=== PATIENT | female | born 1935 | race Caucasian/White ===

== ENCOUNTER 2017-03-21 13:21 | Emergency (ER) | payer OTHER ==
[~2017-03-21] VITALS: Ht 160 cm; Wt 66.0 kg
[~2017-03-21 13:21] MED LIST: AMOX500C3 PO; ASPI81TA28 PO; CLX/20 PO; MEMA1TAB4 PO; MULT-506 PO; NRN100 PO; NRV5 PO
[2017-03-21 13:33] VITALS: TEMP 37; Ht 160 cm; Wt 66.0 kg
[2017-03-21] MEDS ORDERED: SODIUM CHLORIDE 0.9% 500ML 500 ML IV STA (13:39)
[2017-03-21 13:47] LABS: BASO % 0.5 %; BASO ABS # 0.04 K/uL (0-0.2); COMPLETE YES; EOS % 1.5 %; HEMATOCRIT 39.7 % (37-47); IG% 0.1 %; LYMPH % 40.3 %; LYMPH ABS # 3.29 K/uL (1.2-3.4); MEAN CELL VOLUME 95.4 fL (80-100); MEAN CORPUSCULAR HEMOGLOBIN 29.8 pg (25-34); MEAN CORPUSCULAR HGB CONC 31.2 g/dl (32-36); MEAN PLATELET VOLUME 9.3 fL (7.4-10.4); MONO % 4.4 %; NEUT % 53.2 %; PLATELET COUNT 274 K/uL (130-400); RED BLOOD COUNT 4.16 M/uL (4.2-5.4); WHITE BLOOD COUNT 8.17 K/uL (4.8-10.8)
[2017-03-21] MEDS ORDERED: LIDODERM (LIDOCAINE) PATCH 5% TD STA (13:49)
[2017-03-21 13:56] LABS: BLOOD UREA NITROGEN 23 mg/dl (7-18); BUN/CREATININE RATIO 27.6 (10-20); CARBON DIOXIDE 28 mmol/L (21-32); CHLORIDE 110 mmol/L (98-107); CREATININE 0.82 mg/dl (0.60-1.20); GLUCOSE 97 mg/dl (70-99); POTASSIUM 4.1 mmol/L (3.5-5.1); SODIUM 146 mmol/L (136-145)
[2017-03-21 13:57] LABS: INR 0.9 (0.9-1.1); PARTIAL THROMBOPLASTIN RATIO 0.9
--- NOTE | 2017-03-21 13:59 | EMERGENCY ROOM VISIT NOTE ---
History First contact with patient: 13:24 Chief Complaint: ILLNESS Stated Complaint: U History of Present Illness The patient is a 82 year old female who presents to the Emergency Room with complaints of altered mental state. She was a code purple in the cancer centre after staff found her appearing confused sitting on a chair by herself around 1: 10pm. Her is currently undergoing iron infusion treatment in the cancer center and her son was helping him and left her on the same chair. He was then contacted by staff who were concerned about the patient's mental state. As per the medical team she did not lose consciousness, glucose was normal, no respiratory distress but appeared confused. She is currently complaining about bilateral shoulder and neck pain worse on the right side. She is unable to expand on this in terms of character, radiation or severity. She is disorientated to time, place and person. As per her son this is not unusual for her due to a skiing accident many years ago and recently had a shoulder injection for rotator cuff injury on March 09. Her son reports when this pain is overwhelming her mental status declines and she becomes confused. He also reports she didn't eat anything today. He is unsure whether she took her morning medications. Review of Systems Unable to take full systems review due to patient cognition and son does not know answers. Generally was her normal self up until the amy cuellar was called. No preceding symptoms. 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 Social History Smoking Status: Never Smoker Alcohol Use: none Marital Status: Housing Status: lives with significant other Current/Historical Medications Scheduled Amlodipine Besylate (Amlodipine Besylate), 5 MG PO QAM Aspirin (Aspirin Ec), 81 MG PO QAM Citalopram (Citalopram Hydrobromide), 20 MG PO DAILY Gabapentin (Gabapentin), 100 MG PO BID Memantine HCl (Memantine HCl), 10 MG PO BID Multivitamin (Multivitamin), 1 TAB PO QAM Scheduled PRN Amoxicillin (Amoxil), 4 CAP PO UD PRN for prior to procedures Allergies Coded Allergies: No Known Allergies (Verified , 01/31/16) Physical Exam Vital Signs Date Time Temp Pulse Resp B/P (MAP) Pulse Ox O2 Delivery O2 Flow Rate FiO2 03/21/17 14:31 62 16 163/85 95 Room Air 03/21/17 13:33 37.0 78 16 173/78 95 03/21/17 13:26 69 Physical Exam VITAL SIGNS: were reviewed as above GENERAL: mild acute distress from pain, lying still in bed but closing her eyes frequently SKIN: Warm dry and pink, no rashes HEAD: Normocephalic and atraumatic EYES: extraocular muscles intact, pupils equal and reactive to light OROPHARYNX: non erythematous, clear and moist NECK: Supple, no adenopathy, trachea central LUNGS: Regular rate, no respiratory distress, clear to auscultation, no accessory muscle use HEART: Regular rate and rhythm, heart sounds 1+2, no murmurs ABDOMEN: Soft, non distended, generalized pain on palpation without rebound or guarding, bowel sounds normal BACK: no CVA tenderness EXTREMITIES: Warm and well perfused, peripheral capillary refill <2s, no calf tenderness/swelling, no pedal edema. NEUROLOGICALLY: Awake alert and oriented without focal deficit. Cranial nerves 2 -12 intact. Cerebellar testing is within normal limits. There is no nystagmus. There is no facial droop. Speech is clear. Vision is grossly normal. MUSCULOSKELETAL: Good muscle tone. No evidence of trauma Medical Decision & Procedures ER Provider Diagnostic Interpretation: HEAD CT NONCONTRAST CT DOSE: 690.05 mGycm HISTORY: headache, altered mental status. TECHNIQUE: Multiaxial CT images of the head were performed without the use of intravenous contrast. Automated exposure control was utilized for this study. Comparison: Head CT 02/19/2016. Findings: The paranasal sinuses and mastoid air cells are clear. The calvarium and skull base are intact. There is no mass, hematoma, midline shift, acute infarct. White matter hypodensity is nonspecific but suggestive of microvascular ischemic change. The ventricles and sulci demonstrate mild age-related involutional changes. Impression: No significant change compared to the prior study. No acute intracranial abnormality. Electronically signed by: Bhanu Beard M.D. 03/21/2017 2:07 PM Dictated Date/Time: 03/21/2017 2:01 PM ABDOMEN 2VIEW W/PA CHEST RTN CLINICAL HISTORY: abdominal pain, AMS COMPARISON STUDY: No previous studies for comparison. FINDINGS: The erect chest reveals no free intraperitoneal air. There is no focal pulmonary consolidation. Supine and decubitus views the abdomen reveal no abnormally dilated loops of large or small bowel. There are no transition zones to indicate a bowel obstruction. There are postsurgical changes of a total right hip arthroplasty. IMPRESSION: No evidence of bowel obstruction. No evidence of free air. Electronically signed by: Rufus Lemus M.D. 03/21/2017 2:20 PM Dictated Date/Time: 03/21/2017 2:19 PM Laboratory Results 03/21/17 13:28 Red Blood Count 4.16, Mean Corpuscular Volume 95.4, Mean Corpuscular Hemoglobin 29.8, Mean Corpuscular Hemoglobin Concent 31.2, Mean Platelet Volume 9.3, Neutrophils (%) (Auto) 53.2, Lymphocytes (%) (Auto) 40.3, Monocytes (%) (Auto) 4.4, Eosinophils (%) (Auto) 1.5, Basophils (%) (Auto) 0.5, Neutrophils # (Auto) 4.35, Lymphocytes # (Auto) 3.29, Monocytes # (Auto) 0.36, Eosinophils # (Auto) 0.12, Basophils # (Auto) 0.04 03/21/17 13:28 Test 03/21/17 13:28 03/21/17 15:35 White Blood Count 8.17 K/uL (4.8-10.8) Red Blood Count 4.16 M/uL (4.2-5.4) Hemoglobin 12.4 g/dL (12.0-16.0) Hematocrit 39.7 % (37-47) Mean Corpuscular Volume 95.4 fL (80-100) Mean Corpuscular Hemoglobin 29.8 pg (25-34) Mean Corpuscular Hemoglobin Concent 31.2 g/dl (32-36) Platelet Count 274 K/uL (130-400) Mean Platelet Volume 9.3 fL (7.4-10.4) Neutrophils (%) (Auto) 53.2 % Lymphocytes (%) (Auto) 40.3 % Monocytes (%) (Auto) 4.4 % Eosinophils (%) (Auto) 1.5 % Basophils (%) (Auto) 0.5 % Neutrophils # (Auto) 4.35 K/uL (1.4-6.5) Lymphocytes # (Auto) 3.29 K/uL (1.2-3.4) Monocytes # (Auto) 0.36 K/uL (0.11-0.59) Eosinophils # (Auto) 0.12 K/uL (0-0.5) Basophils # (Auto) 0.04 K/uL (0-0.2) RDW Standard Deviation 46.5 fL (36.4-46.3) RDW Coefficient of Variation 13.3 % (11.5-14.5) Immature Granulocyte % (Auto) 0.1 % Immature Granulocyte # (Auto) 0.01 K/uL (0.00-0.02) Prothrombin Time 10.0 SECONDS (9.0-12.0) Prothromb Time International Ratio 0.9 (0.9-1.1) Activated Partial Thromboplast Time 23.6 SECONDS (21.0-31.0) Partial Thromboplastin Ratio 0.9 Anion Gap 8.0 mmol/L (3-11) Est Creatinine Clear Calc Drug Dose 46.6 ml/min Estimated GFR () 76.2 Estimated GFR (Non- 65.7 BUN/Creatinine Ratio 27.6 (10-20) Calcium Level 9.0 mg/dl (8.5-10.1) Total Bilirubin < 0.1 mg/dl (0.2-1) Aspartate Amino Transf (AST/SGOT) 15 U/L (15-37) Alanine Aminotransferase (ALT/SGPT) 21 U/L (12-78) Alkaline Phosphatase 68 U/L (45-117) Troponin I < 0.015 ng/ml (0-0.045) Total Protein 6.8 gm/dl (6.4-8.2) Albumin 3.6 gm/dl (3.4-5.0) Globulin 3.2 gm/dl (2.5-4.0) Albumin/Globulin Ratio 1.1 (0.9-2) Urine Color YELLOW Urine Appearance CLEAR (CLEAR) Urine pH 7.0 (4.5-7.5) Urine Specific [place] 1.020 (1.000-1.030) Urine Protein NEG (NEG) Urine Glucose (UA) NEG (NEG) Urine Ketones NEG (NEG) Urine Occult Blood NEG (NEG) Urine Nitrite NEG (NEG) Urine Bilirubin NEG (NEG) Urine Urobilinogen NEG (NEG) Urine Leukocyte Esterase TRACE (NEG) Urine WBC (Auto) 1-5 /hpf (0-5) Urine RBC (Auto) 0-4 /hpf (0-4) Urine Hyaline Casts (Auto) 0 /lpf (0-5) Urine Epithelial Cells (Auto) 20-30 /lpf (0-5) Urine Bacteria (Auto) NEG (NEG) Medications Administered Medications (Trade) Dose Ordered Sig/Saqib Route Start Time Stop Time Status Last Admin Dose Admin Sodium Chloride 500 ml @ 999 mls/hr Q31M STAT IV 03/21/17 13:39 03/21/17 14:09 DC 03/21/17 13:39 999 MLS/HR ECG Indication: altered mental status Rate (beats per minute): 65 Rhythm: normal sinus Findings: no acute ischemic change ED Course 13:25 Complete history and physical taken 13:[address] Ledesma who agreed with the above plan 15:30 Reassessed patient. As per her son she is at her baseline which fluctuates when she has pain. Medical Decision Prior records/ancillary studies reviewed and summarized above. Nursing notes reviewed. Additional history obtained from patient. The patient's history was concerning for altered mental status. Differential diagnosis: Etiologies such as metabolic, infection, hypoglycemia, electrolyte abnormalities , cardiac sources, intracerebral event, toxicologic, neurologic, as well as others were entertained. Physical examination: As above. ER treatment provided: IV Lock Normal saline 500ml bolus On reassessment the patients mental status was stable. Diagnostics interpretation by me: ECG: NSR 61 bpm The labs and urine analysis were unremarkable Imaging studies: CT head, CXR and AXR were unremarkable Given the above diagnostic work-up and treatment, this episode appears to be consistent with transient altered mental status likely secondary to pain on background of dementia. The diagnostic workup was discussed with the patient and her son. As per her son; she is at her baseline mental state which fluctuates with pain and it appears she was seen at the cancer center. He has managed this at home on several occasions and they have pain relief for her shoulder and neck pain at home. Impression Primary Impression: Altered awareness, transient Departure Information Dispostion Home / Self-Care Condition FAIR Referrals Tayler Lomas D.O. (PCP) Patient Instructions My [facility] Additional Instructions You were evaluated by [facility] after an episode of altered mental state. Labs, CT head, and CXR were unremarkable. This episode was most likely secondary to pain on background of dementia. We recommend following up with your PCP within the next 2-3 days for a reassessment of your condition. Please also follow up with your orthopedic doctor regarding chronic shoulder and neck pain.
[2017-03-21 14:02] LABS: ALB/GLOB RATIO 1.1 (0.9-2); ALKALINE PHOSPHATASE 68 U/L (45-117); ALT/SGPT 21 U/L (12-78); AST/SGOT 15 U/L (15-37)
--- NOTE | 2017-03-21 14:09 | DIAGNOSTIC IMAGING REPORT ---
HEAD CT NONCONTRAST CT DOSE: 690.05 mGycm HISTORY: headache, altered mental status. TECHNIQUE: Multiaxial CT images of the head were performed without the use of intravenous contrast. Automated exposure control was utilized for this study. Comparison: Head CT 02/19/2016. Findings: The paranasal sinuses and mastoid air cells are clear. The calvarium and skull base are intact. There is no mass, hematoma, midline shift, acute infarct. White matter hypodensity is nonspecific but suggestive of microvascular ischemic change. The ventricles and sulci demonstrate mild age-related involutional changes. Impression: No significant change compared to the prior study. No acute intracranial abnormality. Electronically signed by: Bhanu Beard M.D. 03/21/2017 2:07 PM Dictated Date/Time: 03/21/2017 2:01 PM
--- NOTE | 2017-03-21 14:21 | DIAGNOSTIC IMAGING REPORT ---
ABDOMEN 2VIEW W/PA CHEST RTN CLINICAL HISTORY: abdominal pain, AMS COMPARISON STUDY: No previous studies for comparison. FINDINGS: The erect chest reveals no free intraperitoneal air. There is no focal pulmonary consolidation. Supine and decubitus views the abdomen reveal no abnormally dilated loops of large or small bowel. There are no transition zones to indicate a bowel obstruction. There are postsurgical changes of a total right hip arthroplasty. IMPRESSION: No evidence of bowel obstruction. No evidence of free air. Electronically signed by: Rufus Lemus M.D. 03/21/2017 2:20 PM Dictated Date/Time: 03/21/2017 2:19 PM
[2017-03-21 14:31] VITALS: BP 163/85; PULSE 62; O2SAT 95
[2017-03-21 15:54] LABS: URINE APPEARANCE CLEAR (CLEAR); URINE BILIRUBIN NEG (NEG); URINE COLOR YELLOW; URINE EPITHELIAL CELL AUTO 20-30 /lpf (0-5); URINE NITRITE NEG (NEG); UROBILINOGEN NEG (NEG); ZZUR CULT IF INDIC CLEAN CATCH NO
[2017-03-21 16:00] LABS: MANUAL MICROSCOPIC REQUIRED? NO; REVIEW REQ? NO
--- NOTE | 2017-05-11 02:56 | EMERGENCY ROOM VISIT NOTE ---
ED Visit Note First contact with patient: 13:24 Pt with AMS and hx of dementia after having near syncopal event while accompanying her family member in the cancer center. Per son who helps care for her, pt presentation not uncommon. Pt improved by arrival in the ED. Pt able to answer questions but is confused. Discussed with son concern given age and event today, imaging/lab/urine checked as a precaution, all found to be reassuring. Pt continued to remain stable in the ED, son comfortable with her current state and would like to take her home to be with her who he also cares for and who was in the cancer center. Doubt CVA, no evidence of occult infectious etiology, doubt cardiac etiology. Son aware of findings, resident discussed sx to watch/return for, f/u with PCP, they verbalized understanding and were agreeable with plan.
== END 2017-03-21 16:02 | disposition home or self-care (01) ==
LOC: EDSEX 13:21 → EDBD 13:21 → C.EDB 13:22
DX: R40.4 Transient alteration of awareness (principal); F03.90 Unspecified dementia, unspecified severity, without behavioral disturbance, psychotic disturbance, mood disturbance, and anxiety; M19.90 Unspecified osteoarthritis, unspecified site; Z79.82 Long term (current) use of aspirin

== ENCOUNTER 2017-04-01 20:47 | Emergency (ER) | payer OTHER ==
[~2017-04-01] VITALS: Ht 160 cm; Wt 63.0 kg
[2017-04-01 20:56] VITALS: TEMP 36.6; Ht 160 cm; Wt 63.0 kg
[2017-04-01] MEDS ORDERED: SODIUM CHLORIDE 0.9% 1000ML 1,000 ML IV STA (20:57)
--- NOTE | 2017-04-01 20:58 | EMERGENCY ROOM VISIT NOTE ---
History Report prepared by Ruthibcristofer: Adin Gomez Under the Supervision of: Dr. Ranjeet Mejia D.O. First contact with patient: 20:50 Chief Complaint: SYNCOPE Stated Complaint: SYNCOPE History of Present Illness The patient is an 82 year old female who presents to the Emergency Room with a resolved episode of syncope that occurred prior to arrival. Per nursing staff, the patient was reportedly found laying in her yard. The patient was noncooperative and nonverbal limiting the history. Source of History: nursing staff History Limited By: other (noncooperative.) Onset: prior to arrival Position: other (global) Quality: other Timing: resolved Review of Systems ROS is limited secondary to patient not cooperating. 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 Social History Smoking Status: Never Smoker Alcohol Use: none Marital Status: Housing Status: lives with significant other Current/Historical Medications Scheduled Aspirin (Aspirin Ec), 81 MG PO QAM Citalopram (Citalopram Hydrobromide), 20 MG PO DAILY Donepezil Hydrochloride (Aricept), 1 TAB PO DAILY Memantine Hcl (Namenda Xr), 1 CAP PO DAILY Multivitamin (Multivitamin), 1 TAB PO QAM Scheduled PRN Acetaminophen (Tylenol), 1 TAB PO Q8 PRN for Headache Amoxicillin (Amoxil), 4 CAP PO UD PRN for prior to procedures Allergies Coded Allergies: No Known Allergies (Verified , 04/01/17) Physical Exam Vital Signs Date Time Temp Pulse Resp B/P (MAP) Pulse Ox O2 Delivery O2 Flow Rate FiO2 04/02/17 00:03 60 04/01/17 22:14 59 193/87 04/01/17 21:52 201/101 04/01/17 21:35 165/76 04/01/17 21:03 94 Room Air 04/01/17 21:02 71 19 04/01/17 20:59 62 04/01/17 20:56 36.6 61 15 154/74 96 Room Air 04/01/17 20:55 154/74 Physical Exam CONSTITUTIONAL/VITAL SIGNS: Reviewed / noted above. GENERAL: Non-toxic in appearance. INTEGUMENTARY: Warm, dry, and [place]. HEAD: Normocephalic. EYES: without scleral icterus or trauma. ENT/OROPHARYNX: clear and moist. LYMPHADENOPATHY/NECK: Is supple without lymphadenopathy or meningismus. RESPIRATORY: Lungs clear and equal. CARDIOVASCULAR: Regular rate and rhythm. GI/ABDOMEN: Soft and nontender. No organomegaly or pulsatile mass. No rebound or guarding. Normal bowel sounds. EXTREMITIES: Warm and well perfused. BACK: No CVA tenderness. NEUROLOGICAL: Intact without focal deficits. Appears to be feigning unresponsiveness, nonverbal. PSYCHIATRIC: normal affect. MUSCULOSKELETAL: Normally developed with good muscle tone. Medical Decision & Procedures ER Provider Diagnostic Interpretation: X ray results and stated below per my interpretation and radiology interpretation. Radiology results as stated below per my review and radiologist interpretation: HEAD CT NONCONTRAST CT DOSE: 537.48 mGy.cm HISTORY: Mental status change EVALUATE ALTERED MENTAL STATUS/WEAKNESS TECHNIQUE: Multiaxial CT images of the head were performed without the use of intravenous contrast. Comparison: 03/21/2017 Findings: The paranasal sinuses and mastoid air cells are clear. The calvarium and skull base are intact. The ventricles and sulci are within normal limits. There is no mass, hematoma, midline shift, or acute infarct. Impression: No acute intracranial abnormality. Electronically signed by: Mick Null M.D. 04/01/2017 9:34 PM Dictated Date/Time: 04/01/2017 9:33 PM CHEST ONE VIEW PORTABLE CLINICAL HISTORY: EVALUATE ALTERED MENTAL STATUS/WEAKNESS dyspnea COMPARISON STUDY: 03/21/2017 FINDINGS: The bones soft tissues and hemidiaphragms are normal. The cardiomediastinal silhouette is normal. The lungs are clear. The pulmonary vasculature is normal. IMPRESSION: Negative chest. Electronically signed by: Mick Null M.D. 04/01/2017 10:06 PM Dictated Date/Time: 04/01/2017 10:05 PM Laboratory Results 04/01/17 20:26 Red Blood Count 3.65, Mean Corpuscular Volume 95.1, Mean Corpuscular Hemoglobin 31.5, Mean Corpuscular Hemoglobin Concent 33.1, Mean Platelet Volume 9.3, Neutrophils (%) (Auto) 48.4, Lymphocytes (%) (Auto) 42.4, Monocytes (%) (Auto) 6.6, Eosinophils (%) (Auto) 2.1, Basophils (%) (Auto) 0.5, Neutrophils # (Auto) 2.77, Lymphocytes # (Auto) 2.43, Monocytes # (Auto) 0.38, Eosinophils # (Auto) 0.12, Basophils # (Auto) 0.03 04/01/17 20:26 Test 04/01/17 20:26 04/01/17 21:50 White Blood Count 5.73 K/uL (4.8-10.8) Red Blood Count 3.65 M/uL (4.2-5.4) Hemoglobin 11.5 g/dL (12.0-16.0) Hematocrit 34.7 % (37-47) Mean Corpuscular Volume 95.1 fL (80-100) Mean Corpuscular Hemoglobin 31.5 pg (25-34) Mean Corpuscular Hemoglobin Concent 33.1 g/dl (32-36) Platelet Count 294 K/uL (130-400) Mean Platelet Volume 9.3 fL (7.4-10.4) Neutrophils (%) (Auto) 48.4 % Lymphocytes (%) (Auto) 42.4 % Monocytes (%) (Auto) 6.6 % Eosinophils (%) (Auto) 2.1 % Basophils (%) (Auto) 0.5 % Neutrophils # (Auto) 2.77 K/uL (1.4-6.5) Lymphocytes # (Auto) 2.43 K/uL (1.2-3.4) Monocytes # (Auto) 0.38 K/uL (0.11-0.59) Eosinophils # (Auto) 0.12 K/uL (0-0.5) Basophils # (Auto) 0.03 K/uL (0-0.2) RDW Standard Deviation 47.3 fL (36.4-46.3) RDW Coefficient of Variation 13.6 % (11.5-14.5) Immature Granulocyte % (Auto) 0.0 % Immature Granulocyte # (Auto) 0.00 K/uL (0.00-0.02) Prothrombin Time 10.3 SECONDS (9.0-12.0) Prothromb Time International Ratio 1.0 (0.9-1.1) Activated Partial Thromboplast Time 28.2 SECONDS (21.0-31.0) Partial Thromboplastin Ratio 1.1 Anion Gap 7.0 mmol/L (3-11) Est Creatinine Clear Calc Drug Dose 31.2 ml/min Estimated GFR () 48.1 Estimated GFR (Non- 41.5 BUN/Creatinine Ratio 18.8 (10-20) Calcium Level 8.8 mg/dl (8.5-10.1) Magnesium Level 2.3 mg/dl (1.8-2.4) Total Bilirubin 0.2 mg/dl (0.2-1) Direct Bilirubin < 0.1 mg/dl (0-0.2) Aspartate Amino Transf (AST/SGOT) 14 U/L (15-37) Alanine Aminotransferase (ALT/SGPT) 20 U/L (12-78) Alkaline Phosphatase 71 U/L (45-117) Total Creatine Kinase 57 U/L (26-192) Creatine Kinase MB < 0.5 ng/ml (0.5-3.6) Creatine Kinase MB Ratio (0-3.0) Troponin I 0.031 ng/ml (0-0.045) Total Protein 6.5 gm/dl (6.4-8.2) Albumin 3.5 gm/dl (3.4-5.0) Lipase 175 U/L (73-393) Thyroid Stimulating Hormone (TSH) 0.746 uIu/ml (0.300-4.500) Urine Color YELLOW Urine Appearance CLOUDY (CLEAR) Urine pH 5.5 (4.5-7.5) Urine Specific [place] 1.019 (1.000-1.030) Urine Protein NEG (NEG) Urine Glucose (UA) NEG (NEG) Urine Ketones NEG (NEG) Urine Occult Blood NEG (NEG) Urine Nitrite NEG (NEG) Urine Bilirubin NEG (NEG) Urine Urobilinogen NEG (NEG) Urine Leukocyte Esterase SMALL (NEG) Urine WBC (Auto) 1-5 /hpf (0-5) Urine RBC (Auto) 0-4 /hpf (0-4) Urine Hyaline Casts (Auto) 1-5 /lpf (0-5) Urine Epithelial Cells (Auto) 10-20 /lpf (0-5) Urine Bacteria (Auto) NEG (NEG) Urine Opiates Screen NEG (NEG) Urine Methadone, Qualitative NEG (NEG) Urine Barbiturates NEG (NEG) Urine Phencyclidine (PCP) Level NEG (NEG) Ur Amphetamine/Methamphetamine NEG (NEG) MDMA (Ecstasy) Screen NEG (NEG) Urine Benzodiazepines Screen NEG (NEG) Urine Cocaine Metabolite NEG (NEG) Urine Marijuana (THC) NEG (NEG) Laboratory results as stated above per my review. Medications Administered Medications (Trade) Dose Ordered Sig/Saqib Route Start Time Stop Time Status Last Admin Dose Admin Sodium Chloride 1,000 ml @ 999 mls/hr Q1H1M STAT IV 04/01/17 20:57 04/01/17 21:57 DC 04/01/17 21:39 999 MLS/HR Acetaminophen (Tylenol Tab) 500 mg STK-MED ONCE PO 04/01/17 22:25 04/01/17 22:26 DC 04/01/17 22:38 500 MG ECG Indication: syncope Rate (beats per minute): 62 Rhythm: normal sinus Findings: no acute ischemic change, no ectopy ED Course 2054: Previous medical records were reviewed. The patient was evaluated in room A10. A complete history and physical examination was performed. 2056: NSS 1000 ml @ 999 mls/hr. 2344: Reassessed the patient. She will be discharged. Medical Decision Differential includes acute cardiac dysrhythmia, microinfarction, CVA, TIA, dehydration, anemia, electrolyte disturbance, seizure, trauma, intracranial bleeding, acute vascular catastrophe, thoracic aortic dissection, PE, abdominal aortic aneurysm rupture, ectopic rupture. Blood pressure Screening: Patient was found to have an elevated blood pressure and was referred to their primary doctor for recheck and further treatment. Medication Reconciliation: I attest that I have personally reviewed the patient' s current medication list. This is an 82-year-old female who presents to the ED with a chief complaint of an unresponsive episode. The patient actually was feigning unresponsiveness. She was initially evaluated by EMS for cardiac arrest. The patient was apparently sleeping in the yard or feigning unresponsiveness in her yard. EMS found her to have normal vital signs and be without any signs of abnormality. My exam here suggests that she was feigning unresponsiveness. Place in the patient's hand over her head, the patient lowered it slowly onto her chest. She also responded verbally to painful stimuli. A complete workup was performed including a CT scan of the brain, chest x-ray as well as blood work. There is no evidence of infection, acute intracranial pathology, pneumonia, urinary tract infection or other abnormality. The patient was treated with IV fluids here. During her stay, she went to the bathroom several times and was awakened at the time of disposition. She was given some Tylenol for some chronic pain. Impression Primary Impression: Transient alteration of awareness Scribe Attestation The scribe's documentation has been prepared under my direction and personally reviewed by me in its entirety. I confirm that the note above accurately reflects all work, treatment, procedures, and medical decision making performed by me. Departure Information Referrals Tayler Lomas D.O. (PCP) Patient Instructions My [facility]
[2017-04-01 21:03] VITALS: O2SAT 94
[2017-04-01 21:15] LABS: BASO % 0.5 %; BASO ABS # 0.03 K/uL (0-0.2); COMPLETE YES; EOS % 2.1 %; HEMATOCRIT 34.7 % (37-47); LYMPH % 42.4 %; LYMPH ABS # 2.43 K/uL (1.2-3.4); MEAN CELL VOLUME 95.1 fL (80-100); MEAN CORPUSCULAR HEMOGLOBIN 31.5 pg (25-34); MEAN CORPUSCULAR HGB CONC 33.1 g/dl (32-36); MEAN PLATELET VOLUME 9.3 fL (7.4-10.4); MONO % 6.6 %; NEUT % 48.4 %; PLATELET COUNT 294 K/uL (130-400); RED BLOOD COUNT 3.65 M/uL (4.2-5.4); WHITE BLOOD COUNT 5.73 K/uL (4.8-10.8)
[2017-04-01 21:23] LABS: ALT/SGPT 20 U/L (12-78); BLOOD UREA NITROGEN 23 mg/dl (7-18); BUN/CREATININE RATIO 18.8 (10-20); CALCIUM 8.8 mg/dl (8.5-10.1); CARBON DIOXIDE 29 mmol/L (21-32); CHLORIDE 107 mmol/L (98-107); GLUCOSE 114 mg/dl (70-99); MAGNESIUM 2.3 mg/dl (1.8-2.4); POTASSIUM 3.7 mmol/L (3.5-5.1); SODIUM 143 mmol/L (136-145)
[2017-04-01 21:26] LABS: PARTIAL THROMBOPLASTIN RATIO 1.1; PROTHROMBIN TIME (PATIENT) 10.3 SECONDS (9.0-12.0)
[2017-04-01 21:31] LABS: ALKALINE PHOSPHATASE 71 U/L (45-117); AST/SGOT 14 U/L (15-37); THYROID STIMULATING HORMONE 0.746 uIu/ml (0.300-4.500)
--- NOTE | 2017-04-01 21:36 | DIAGNOSTIC IMAGING REPORT ---
HEAD CT NONCONTRAST CT DOSE: 537.48 mGy.cm HISTORY: Mental status change EVALUATE ALTERED MENTAL STATUS/WEAKNESS TECHNIQUE: Multiaxial CT images of the head were performed without the use of intravenous contrast. Comparison: 03/21/2017 Findings: The paranasal sinuses and mastoid air cells are clear. The calvarium and skull base are intact. The ventricles and sulci are within normal limits. There is no mass, hematoma, midline shift, or acute infarct. Impression: No acute intracranial abnormality. Electronically signed by: Mick Null M.D. 04/01/2017 9:34 PM Dictated Date/Time: 04/01/2017 9:33 PM
[2017-04-01 22:07] LABS: URINE APPEARANCE CLOUDY (CLEAR); URINE BILIRUBIN NEG (NEG); URINE COLOR YELLOW; URINE NITRITE NEG (NEG); URINE PH 5.5 (4.5-7.5); URINE SPECIFIC GRAVITY 1.019 (1.000-1.030); UROBILINOGEN NEG (NEG); ZZURINE CULT IF INDIC CATH NO
--- NOTE | 2017-04-01 22:07 | DIAGNOSTIC IMAGING REPORT ---
CHEST ONE VIEW PORTABLE CLINICAL HISTORY: EVALUATE ALTERED MENTAL STATUS/WEAKNESS dyspnea COMPARISON STUDY: 03/21/2017 FINDINGS: The bones soft tissues and hemidiaphragms are normal. The cardiomediastinal silhouette is normal. The lungs are clear. The pulmonary vasculature is normal. IMPRESSION: Negative chest. Electronically signed by: Mick Null M.D. 04/01/2017 10:06 PM Dictated Date/Time: 04/01/2017 10:05 PM
[2017-04-01 22:11] LABS: MANUAL MICROSCOPIC REQUIRED? NO; REVIEW REQ? NO
[2017-04-01] MEDS ORDERED: DONE10TA12 PO (22:12)
[2017-04-01] MEDS ORDERED: MEMA1CAP7 PO (22:13)
[2017-04-01] MEDS ORDERED: ACET-1311 PO (22:15)
[2017-04-01] MEDS ORDERED: ACET-1256 PO (22:18)
[2017-04-01] MEDS ORDERED: ACETAMINOPHEN 500 MG TAB PO ONE (22:25)
[2017-04-01 22:37] LABS: BENZODIAZEPINE, URINE NEG (NEG); COCAINE,URINE NEG (NEG); PHENCYCLIDINE, URINE NEG (NEG)
[2017-04-02 00:03] VITALS: BP 153/76; PULSE 59; O2SAT 99
== END 2017-04-02 00:24 | disposition home or self-care (01) ==
LOC: EDBD 20:47 → C.EDA 20:48
DX: R40.4 Transient alteration of awareness (principal); R55 Syncope and collapse; F03.90 Unspecified dementia, unspecified severity, without behavioral disturbance, psychotic disturbance, mood disturbance, and anxiety; M50.90 Cervical disc disorder, unspecified, unspecified cervical region; M54.5 Low back pain

== ENCOUNTER 2017-11-16 18:51 | Emergency (ER) | payer OTHER ==
[~2017-11-16] VITALS: Ht 157.5 cm; Wt 54.3 kg
[~2017-11-16 18:51] MED LIST changes: +ACET-1256 PO; +DONE10TA12 PO; +MEMA1CAP7 PO; -MEMA1TAB4 PO; -NRN100 PO; -NRV5 PO
[2017-11-16 18:58] VITALS: TEMP 36.8
[2017-11-16] MEDS ORDERED: SODIUM CHLORIDE 0.9% 500ML 500 ML IV STA (20:19)
[2017-11-16] MEDS ORDERED: ACETAMINOPHEN 500 MG TAB PO STA (20:19)
[2017-11-16 20:35] VITALS: Ht 157.5 cm; Wt 54.3 kg
[2017-11-16 20:41] VITALS: O2SAT 96
[2017-11-16 20:52] LABS: BASO % 0.5 %; BASO ABS # 0.03 K/uL (0-0.2); EOS % 1.6 %; HEMATOCRIT 38.3 % (37-47); HEMOGLOBIN 12.7 g/dL (12.0-16.0); IG# 0.01 K/uL (0.00-0.02); LYMPH % 44.4 %; LYMPH ABS # 2.83 K/uL (1.2-3.4); MEAN CELL VOLUME 93.6 fL (80-100); MEAN CORPUSCULAR HEMOGLOBIN 31.1 pg (25-34); MEAN CORPUSCULAR HGB CONC 33.2 g/dl (32-36); MEAN PLATELET VOLUME 9.2 fL (7.4-10.4); MONO % 6.6 %; MONO ABS # 0.42 K/uL (0.11-0.59); NEUT % 46.7 %; NEUT ABS # 2.99 K/uL (1.4-6.5); PLATELET COUNT 260 K/uL (130-400); RED CELL DISTRIBUTION WIDTH CV 13.2 % (11.5-14.5); RED CELL DISTRIBUTION WIDTH SD 45.4 fL (36.4-46.3); WHITE BLOOD COUNT 6.38 K/uL (4.8-10.8)
--- NOTE | 2017-11-16 20:52 | EMERGENCY ROOM VISIT NOTE ---
History Report prepared by Jacinda: Vikas Rios Under the Supervision of: Dr. Ranjeet Ross M.D. First contact with patient: 20:11 Chief Complaint: CONFUSION Stated Complaint: BODY ACHES;CONFUSION Nursing Triage Summary: Patients son reports shes complaining that her whole body hurts and pain going down her arm. Hx dementia. Has intermittent pain daily. History of Present Illness The patient is an 82 year old female who presents to the Emergency Room with complaints of persistent confusion for the past few days. The patient is currently complaining of shoulder pain and a headache which have been going on for a while. The son states that the patient is complaining of body aches, and she was not able to walk the other day. She is denying any abdominal pain. Additionally, the patient's son states that the patient was unable to leave her eye alone the past week. The son states that the patient does not have any cough , nausea, vomiting, and diarrhea. The patient has a history of dementia. Source of History: patient, family Onset: the past few days Position: other (global) Quality: other (confusion) Timing: other (persistent) Associated Symptoms: + headache, + neck pain, No nausea, No vomiting, No abdominal pain, No diarrhea Note: Associated symptoms: Body aches Review of Systems See HPI for pertinent positives & negatives. A total of 10 systems reviewed and were otherwise negative. 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 Social History Smoking Status: Never Smoker Alcohol Use: none Marital Status: Housing Status: lives with significant other Current/Historical Medications Scheduled Aspirin (Aspirin Ec), 81 MG PO QAM Citalopram (Citalopram Hydrobromide), 20 MG PO DAILY Donepezil Hydrochloride (Aricept), 1 TAB PO DAILY Memantine Hcl (Namenda Xr), 1 CAP PO DAILY Multivitamin (Multivitamin), 1 TAB PO QAM Sulfa/Trimethoprim (Bactrim Ds 800MG/160MG), 1 TAB PO BID Scheduled PRN Acetaminophen (Tylenol), 1 TAB PO Q8 PRN for Headache Amoxicillin (Amoxil), 4 CAP PO UD PRN for prior to procedures Allergies Coded Allergies: No Known Allergies (Verified , 04/01/17) Physical Exam Vital Signs Date Time Temp Pulse Resp B/P (MAP) Pulse Ox O2 Delivery O2 Flow Rate FiO2 11/16/17 23:27 65 16 159/74 96 11/16/17 21:41 69 16 189/93 96 Room Air 11/16/17 20:50 60 11/16/17 20:42 64 16 181/74 96 Room Air 11/16/17 20:41 96 Room Air 11/16/17 20:40 65 16 171/84 66 193/84 11/16/17 18:58 36.8 76 18 162/79 95 Room Air Physical Exam GENERAL: Patient is a healthy-appearing well-nourished female HEAD: Normocephalic atraumatic EYES: Ocular movements intact pupils equal and react to light OROPHARYNX mucous membranes are moist no exudates present no erythema or edema present NECK: Supple no nuchal rigidity CHEST: Good equal expansion LUNGS: Clear and equal to auscultation CARDIAC: Normal S1 and S2 ABDOMEN: Soft nontender no guarding BACK: No CVA tenderness EXTREMITIES: No pain upon palpation normal muscle strength in all groups no clubbing cyanosis or edema NEURO: Patient is following commands and answering questions appropriately. Alert and oriented x3 Cranial Nerves 2-12 grossly intact Medical Decision & Procedures ER Provider Diagnostic Interpretation: ORBITS/SELLA/TEMP WITHOUT CLINICAL HISTORY: Pt c/o Rt eye pain orbital pain TECHNIQUE: Transaxial acquisition with multi axial reformatted evaluation COMPARISON STUDY: None FINDINGS: Globes are symmetric. The orbits are symmetric. Retroseptal fat structures are unremarkable. The optic nerves are symmetric. The rectus musculature is unremarkable. All major osseous structures are intact. There is no evidence for bony destructive process. Instill note is made of moderate sclerosis of the mastoid air cells bilaterally. IMPRESSION: 1. Negative study of the orbits. 2. Moderate chronic sclerosis of the mastoid air cells. CHEST ONE VIEW PORTABLE CLINICAL HISTORY: Pt c/o SOB dyspnea COMPARISON STUDY: 04/01/2017 FINDINGS: The bones soft tissues and hemidiaphragms are normal. The cardiomediastinal silhouette is normal. The lungs are clear. The pulmonary vasculature is normal. IMPRESSION: Negative chest. The above report was generated using voice recognition software. It may contain grammatical, syntax or spelling errors. Electronically signed by: Mick Null M.D. 11/16/2017 9:02 PM Dictated Date/Time: 11/16/2017 9:01 PM HEAD WITHOUT CONTRAST (CT) CT DOSE: HISTORY: Headache Pt c/o headache TECHNIQUE: Multiaxial CT images of the head were performed without the use of intravenous contrast. A dose lowering technique was utilized adhering to the principles of ALARA. Comparison: 04/01/2017 Findings: The paranasal sinuses and mastoid air cells are clear. The calvarium and skull base are intact. The ventricles and sulci are within normal limits. There is no mass, hematoma, midline shift, or acute infarct. Impression: No acute intracranial abnormality. The above report was generated using voice recognition software. It may contain grammatical, syntax or spelling errors. Laboratory Results 11/16/17 20:37 Red Blood Count 4.09, Mean Corpuscular Volume 93.6, Mean Corpuscular Hemoglobin 31.1, Mean Corpuscular Hemoglobin Concent 33.2, Mean Platelet Volume 9.2, Neutrophils (%) (Auto) 46.7, Lymphocytes (%) (Auto) 44.4, Monocytes (%) (Auto) 6.6, Eosinophils (%) (Auto) 1.6, Basophils (%) (Auto) 0.5, Neutrophils # (Auto) 2.99, Lymphocytes # (Auto) 2.83, Monocytes # (Auto) 0.42, Eosinophils # (Auto) 0.10, Basophils # (Auto) 0.03 11/16/17 20:37 Test 11/16/17 20:25 11/16/17 20:37 11/16/17 21:44 Influenza Type A Antigen Neg for Influ A (NEG) Influenza Type B Antigen Neg for Influ B (NEG) White Blood Count 6.38 K/uL (4.8-10.8) Red Blood Count 4.09 M/uL (4.2-5.4) Hemoglobin 12.7 g/dL (12.0-16.0) Hematocrit 38.3 % (37-47) Mean Corpuscular Volume 93.6 fL (80-100) Mean Corpuscular Hemoglobin 31.1 pg (25-34) Mean Corpuscular Hemoglobin Concent 33.2 g/dl (32-36) Platelet Count 260 K/uL (130-400) Mean Platelet Volume 9.2 fL (7.4-10.4) Neutrophils (%) (Auto) 46.7 % Lymphocytes (%) (Auto) 44.4 % Monocytes (%) (Auto) 6.6 % Eosinophils (%) (Auto) 1.6 % Basophils (%) (Auto) 0.5 % Neutrophils # (Auto) 2.99 K/uL (1.4-6.5) Lymphocytes # (Auto) 2.83 K/uL (1.2-3.4) Monocytes # (Auto) 0.42 K/uL (0.11-0.59) Eosinophils # (Auto) 0.10 K/uL (0-0.5) Basophils # (Auto) 0.03 K/uL (0-0.2) RDW Standard Deviation 45.4 fL (36.4-46.3) RDW Coefficient of Variation 13.2 % (11.5-14.5) Immature Granulocyte % (Auto) 0.2 % Immature Granulocyte # (Auto) 0.01 K/uL (0.00-0.02) Prothrombin Time 10.2 SECONDS (9.0-12.0) Prothromb Time International Ratio 1.0 (0.9-1.1) Anion Gap 8.0 mmol/L (3-11) Est Creatinine Clear Calc Drug Dose 35.6 ml/min Estimated GFR () 65.4 Estimated GFR (Non- 56.4 BUN/Creatinine Ratio 21.7 (10-20) Calcium Level 9.2 mg/dl (8.5-10.1) Total Bilirubin 0.3 mg/dl (0.2-1) Direct Bilirubin < 0.1 mg/dl (0-0.2) Aspartate Amino Transf (AST/SGOT) 11 U/L (15-37) Alanine Aminotransferase (ALT/SGPT) 15 U/L (12-78) Alkaline Phosphatase 85 U/L (45-117) Total Creatine Kinase 49 U/L (26-192) Creatine Kinase MB 1.0 ng/ml (0.5-3.6) Creatine Kinase MB Ratio 2.0 (0-3.0) Total Protein 7.1 gm/dl (6.4-8.2) Albumin 3.7 gm/dl (3.4-5.0) Thyroid Stimulating Hormone (TSH) 1.910 uIu/ml (0.300-4.500) Urine Color YELLOW Urine Appearance CLEAR (CLEAR) Urine pH 5.5 (4.5-7.5) Urine Specific [place] 1.011 (1.000-1.030) Urine Protein NEG (NEG) Urine Glucose (UA) NEG (NEG) Urine Ketones TRACE (NEG) Urine Occult Blood NEG (NEG) Urine Nitrite NEG (NEG) Urine Bilirubin NEG (NEG) Urine Urobilinogen NEG (NEG) Urine Leukocyte Esterase MODERATE (NEG) Urine WBC (Auto) 10-30 /hpf (0-5) Urine RBC (Auto) 0-4 /hpf (0-4) Urine Hyaline Casts (Auto) 1-5 /lpf (0-5) Urine Epithelial Cells (Auto) >30 /lpf (0-5) Urine Bacteria (Auto) NEG (NEG) Medications Administered Medications (Trade) Dose Ordered Sig/Saqib Route Start Time Stop Time Status Last Admin Dose Admin Sodium Chloride 500 ml @ 999 mls/hr Q31M STAT IV 11/16/17 20:19 11/16/17 20:49 DC 11/16/17 20:19 999 MLS/HR Acetaminophen (Tylenol Tab) 1,000 mg NOW STAT PO 11/16/17 20:19 11/16/17 20:22 DC 11/16/17 20:34 1,000 MG Diazepam (Valium Inj) 5 mg NOW STAT IV 11/16/17 21:04 11/16/17 21:06 DC 11/16/17 21:20 5 MG Nitroglycerin (Nitroglycerin 2% Oint) 1 inch NOW STAT EXT 11/16/17 21:04 11/16/17 21:06 DC 11/16/17 21:20 1 INCH Metoclopramide HCl (Reglan Inj) 10 mg NOW STAT IV. 11/16/17 21:04 11/16/17 21:07 DC 11/16/17 21:20 10 MG Proparacaine HCl (Alcaine 0.5% Oph Soln) 2 drops NOW STAT OP 11/16/17 21:25 11/16/17 21:26 DC 11/16/17 21:41 2 DROPS Ceftriaxone Sodium (Rocephin Inj) 1 gm NOW STAT IV 11/16/17 22:20 11/16/17 22:22 DC 11/16/17 22:30 1 GM Trimethoprim/ Sulfamethoxazole (Septra Ds 800/ 160MG Tab) 1 tab NOW STAT PO 11/16/17 22:20 11/16/17 22:22 DC 11/16/17 23:14 1 TAB Polymyxin/ Trimethoprim Sulfate (Polytrim Oph Soln) 1 drops NOW STAT OP 11/16/17 22:21 11/16/17 22:22 DC 11/16/17 23:14 1 DROPS ED Course 2010: Past medical records reviewed. The patient was evaluated in room C7. A complete history and physical examination was performed. Medical Decision Differential diagnosis: Etiologies such as metabolic, infection, hypo/hyperglycemia, electrolyte abnormalities, cardiac sources, intracerebral event, toxicologic, neurologic, as well as others were entertained. This is an 82-year-old female who presents emergency department over complaints of right eye pain. In addition the patient is complaining of pain to her head as well as her bilateral shoulders. The son notes that the patient has had this pain for quite some time. The patient does not have any evidence of meningitis encephalitis on examination. The patient was given Tylenol in the emergency department along with a normal saline bolus. The patient had difficulty swallowing the Tylenol therefore she was then given Valium as well as Reglan and Nitropaste. This resulted in improvement in the patient's swallowing. The son would like me to assess the patient's eye. Her right eye appears to have numerous scratches as well as dirt embedded in the cornea. Expressed concern that the patient needs to leave this alone. Her right eye was irrigated out. She will be placed on Polytrim. In addition the patient also appears to have a urinary tract infection and was given Rocephinand will be continued on Bactrim at home. Impression Primary Impression: Scratch of cornea Additional Impression: UTI (urinary tract infection) Scribe Attestation The scribe's documentation has been prepared under my direction and personally reviewed by me in its entirety. I confirm that the note above accurately reflects all work, treatment, procedures, and medical decision making performed by me. Departure Information Dispostion Home / Self-Care Prescriptions Sulfa/Trimethoprim (Bactrim Ds 800MG/160MG) Tab 1 TAB PO BID for 10 Days, #20 TAB Prov: Ranjeet Ross MD 11/16/17 Referrals Tayler Lomas D.O. (PCP) Patient Instructions My [facility] Problem Qualifiers Primary Impression: Scratch of cornea Encounter type: initial encounter Laterality: right Qualified Codes: S05.01XA - Injury of conjunctiva and corneal abrasion without foreign body, right eye, initial encounter Additional Impression: UTI (urinary tract infection) Urinary tract infection type: acute cystitis Hematuria presence: without hematuria Qualified Codes: N30.00 - Acute cystitis without hematuria
--- NOTE | 2017-11-16 21:03 | DIAGNOSTIC IMAGING REPORT ---
CHEST ONE VIEW PORTABLE CLINICAL HISTORY: Pt c/o SOB dyspnea COMPARISON STUDY: 04/01/2017 FINDINGS: The bones soft tissues and hemidiaphragms are normal. The cardiomediastinal silhouette is normal. The lungs are clear. The pulmonary vasculature is normal. IMPRESSION: Negative chest. The above report was generated using voice recognition software. It may contain grammatical, syntax or spelling errors. Electronically signed by: Mick Null M.D. 11/16/2017 9:02 PM Dictated Date/Time: 11/16/2017 9:01 PM
[2017-11-16] MEDS ORDERED: DIAZEPAM INJ 5 MG/ML 2 ML CARP IV STA (21:04)
[2017-11-16] MEDS ORDERED: GLUCAGON INJ 1 MG in SYRINGE 0 ML IV STA (21:04)
[2017-11-16] MEDS ORDERED: NITROGLYCERIN 2% OINTMENT 30GM TUBE EXT STA (21:04)
[2017-11-16] MEDS ORDERED: METOCLOPRAMIDE HCL INJ 5 MG/ML 2 ML VIAL IV. STA (21:04)
[2017-11-16 21:12] LABS: ALBUMIN 3.7 gm/dl (3.4-5.0); ALT/SGPT 15 U/L (12-78); BLOOD UREA NITROGEN 20 mg/dl (7-18); CALCIUM 9.2 mg/dl (8.5-10.1); CARBON DIOXIDE 27 mmol/L (21-32); CREATININE 0.93 mg/dl (0.60-1.20); GLUCOSE 86 mg/dl (70-99); POTASSIUM 3.6 mmol/L (3.5-5.1); SODIUM 140 mmol/L (136-145)
[2017-11-16 21:23] LABS: ALKALINE PHOSPHATASE 85 U/L (45-117); AST/SGOT 11 U/L (15-37); TOTAL PROTEIN 7.1 gm/dl (6.4-8.2)
[2017-11-16] MEDS ORDERED: PROPARACAINE HCL 0.5% OP SOLN 15 ML BTL OP STA (21:25)
--- NOTE | 2017-11-16 21:42 | DIAGNOSTIC IMAGING REPORT ---
HEAD WITHOUT CONTRAST (CT) CT DOSE: HISTORY: Headache Pt c/o headache TECHNIQUE: Multiaxial CT images of the head were performed without the use of intravenous contrast. A dose lowering technique was utilized adhering to the principles of ALARA. Comparison: 04/01/2017 Findings: The paranasal sinuses and mastoid air cells are clear. The calvarium and skull base are intact. The ventricles and sulci are within normal limits. There is no mass, hematoma, midline shift, or acute infarct. Impression: No acute intracranial abnormality. The above report was generated using voice recognition software. It may contain grammatical, syntax or spelling errors. Electronically signed by: Mick Null M.D. 11/16/2017 9:41 PM Dictated Date/Time: 11/16/2017 9:40 PM
[2017-11-16 21:44] LABS: INFLUENZA B ANTIGEN Neg for Influ B (NEG)
[2017-11-16] MEDS ORDERED: GLUCAGON FOR INJ 1 MG VIAL IV STA (21:49)
--- NOTE | 2017-11-16 21:52 | DIAGNOSTIC IMAGING REPORT ---
ORBITS/SELLA/TEMP WITHOUT CLINICAL HISTORY: Pt c/o Rt eye pain orbital pain TECHNIQUE: Transaxial acquisition with multi axial reformatted evaluation COMPARISON STUDY: None FINDINGS: Globes are symmetric. The orbits are symmetric. Retroseptal fat structures are unremarkable. The optic nerves are symmetric. The rectus musculature is unremarkable. All major osseous structures are intact. There is no evidence for bony destructive process. Instill note is made of moderate sclerosis of the mastoid air cells bilaterally. IMPRESSION: 1. Negative study of the orbits. 2. Moderate chronic sclerosis of the mastoid air cells. The above report was generated using voice recognition software. It may contain grammatical, syntax or spelling errors. Electronically signed by: Mick Null M.D. 11/16/2017 9:51 PM Dictated Date/Time: 11/16/2017 9:45 PM
[2017-11-16] MEDS ORDERED: CEFTRIAXONE SOD INJ 1 GM ADDVIAL IV STA (22:20)
[2017-11-16] MEDS ORDERED: SULFAMETHOXAZOLE/TRIMETHOPRIM DS 800/160MG TAB PO STA (22:20)
[2017-11-16] MEDS ORDERED: TRIMETHOPRIM/POLYMYXIN B OP STA (22:21)
[2017-11-16] MEDS ORDERED: SULF800T23 PO (22:23)
[2017-11-16 23:27] VITALS: BP 159/74; PULSE 65; O2SAT 96
== END 2017-11-16 23:29 | disposition home or self-care (01) ==
LOC: C.EDB 18:52 → C.EDC 23:29
DX: S05.01XA Injury of conjunctiva and corneal abrasion without foreign body, right eye, initial encounter (principal); N30.00 Acute cystitis without hematuria; X58.XXXA Exposure to other specified factors, initial encounter; F03.90 Unspecified dementia, unspecified severity, without behavioral disturbance, psychotic disturbance, mood disturbance, and anxiety; M47.12 Other spondylosis with myelopathy, cervical region; Z79.82 Long term (current) use of aspirin

== ENCOUNTER 2017-11-21 18:44 | Emergency (ER) | payer OTHER ==
[~2017-11-21] VITALS: Ht 160 cm; Wt 54.3 kg
[~2017-11-21 18:44] MED LIST changes: +SULF800T23 PO
[2017-11-21 18:57] VITALS: BP 147/79; PULSE 82; TEMP 36.5; O2SAT 92; Ht 160 cm; Wt 54.3 kg
--- NOTE | 2017-11-21 19:22 | EMERGENCY ROOM VISIT NOTE ---
ED Visit Note First contact with patient: 19:03 I have personally seen and evaluated the patient with the physician resident assistant. I agree with the diagnostic/management decisions and have personally been involved in these decisions and agree with the diagnosis.
[2017-11-21] MEDS ORDERED: TRIMETHOPRIM/POLYMYXIN B OP STA (20:00)
--- NOTE | 2017-11-21 20:07 | EMERGENCY ROOM VISIT NOTE ---
History First contact with patient: 19:03 Chief Complaint: EYE ASSESSMENT Stated Complaint: RIGHT EYE PROBLEM History of Present Illness The patient is a 82 year old female who presents to the Emergency Room with complaints of persistent right eye irritation and drainage. The patient presents with her 1 son to the ER. He states that the patient has dementia and lives with her . The son states that his dad is fairly competent. He is attempting to put the drops into the patient's eyes but he does not know how many are actually getting in her eye. And how often they are doing it. The patient also constantly puts her fingers into her right eye. The patient denies any visual changes. The patient was seen here last week for the same thing and was prescribed Polytrim eyedrops. Review of Systems 10 system review was performed and was negative unless stated otherwise history of present illness. 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 Social History Smoking Status: Never Smoker Alcohol Use: none Marital Status: Housing Status: lives with significant other Current/Historical Medications Scheduled Aspirin (Aspirin Ec), 81 MG PO QAM Citalopram (Citalopram Hydrobromide), 20 MG PO DAILY Donepezil Hydrochloride (Aricept), 1 TAB PO DAILY Memantine Hcl (Namenda Xr), 1 CAP PO DAILY Multivitamin (Multivitamin), 1 TAB PO QAM Sulfa/Trimethoprim (Bactrim Ds 800MG/160MG), 1 TAB PO BID Scheduled PRN Acetaminophen (Tylenol), 1 TAB PO Q8 PRN for Headache Amoxicillin (Amoxil), 4 CAP PO UD PRN for prior to procedures Physical Exam Vital Signs Date Time Temp Pulse Resp B/P (MAP) Pulse Ox O2 Delivery O2 Flow Rate FiO2 11/21/17 18:57 36.5 82 16 147/79 92 Physical Exam GENERAL: 82-year-old female appears in no acute distress. MENTAL Status: Alert, patient is confused. EYES: PERRLA. EOMs intact. Right conjunctiva with diffuse erythema and purulent drainage noted. Left conjunctiva is clear without any drainage. Medical Decision & Procedures ED Course The patient was evaluated. The patient's EMR medication list were reviewed. The patient was seen in the emergency room last week for the same thing. She had a few scratches noted on the cornea. She had eye irrigation performed. He then placed the Polytrim eyedrops into her eye and were given the remainder of the bottle to use at home. The patient was evaluated. The patient was independently evaluated by Dr. Mejia agreed with treatment plan. I spoke with both sons later and they are going to get her an appointment with her detector car operator, Dr. Leonard. They will also try to personally put the drops into the patient's eyes as directed. One drop of Polytrim was placed into the right eye and she was given the remainder of the bottle to take home with her. The patient was discharged home in stable condition. Medical Decision Differential diagnosis include viral conjunctivitis, corneal abrasion, bacterial conjunctivitis [place] Drug Monitoring Program Search Results: patient reviewed within database Medication Reconcilliation Current Medication List: was personally reviewed by me Blood Pressure Screening Patient's blood pressure: Elevated blood pressure Blood pressure disposition: Elevated BP felt to be situational Impression Primary Impression: Bacterial conjunctivitis of right eye Departure Information Dispostion Home / Self-Care Condition GOOD Referrals Tayler Lomas D.O. (PCP) Forms HOME CARE DOCUMENTATION FORM, IMPORTANT VISIT INFORMATION, WORK / SCHOOL INSTRUCTIONS Patient Instructions Conjunctivitis, My [facility] Additional Instructions Wash hands frequently. Do not stick anything into the right eye. Use Polytrim eyedrops 1 drop into the right eye every 3 hours while awake for 5-7 days. Follow-up appointment with Dr. Lopez.
== END 2017-11-21 20:43 | disposition home or self-care (01) ==
LOC: C.EDB 18:45 → C.EDD 20:43
DX: H10.9 Unspecified conjunctivitis (principal); F03.90 Unspecified dementia, unspecified severity, without behavioral disturbance, psychotic disturbance, mood disturbance, and anxiety; Z98.49 Cataract extraction status, unspecified eye; Z79.82 Long term (current) use of aspirin; Z79.899 Other long term (current) drug therapy

== ENCOUNTER 2018-01-27 11:03 | Emergency (ER) | payer OTHER ==
[~2018-01-27] VITALS: Ht 160 cm; Wt 49.5 kg
[~2018-01-27 11:03] MED LIST changes: -SULF800T23 PO
[2018-01-27 11:20] VITALS: TEMP 36.7; Ht 160 cm; Wt 49.5 kg
--- NOTE | 2018-01-27 11:46 | EMERGENCY ROOM VISIT NOTE ---
History Report prepared by Jacinda: Lynnette Guo Under the Supervision of: Dr. Valeriano Jaeger M.D. First contact with patient: 11:28 Chief Complaint: NEURO SYMPTOMS Nursing Triage Summary: patient to [facility] via EMS from [facility], per son, patient was acting "her normal" around 9:30-10:00 when he dropped her off for [facility], states "I got a call from the [facility] about 10:15 that she had an episode where she was just staring off." patient AA at time of triage, oriented to self and person, c/o right chronic eye,shoulder pain, and involuntary muscle spasms. History of Present Illness The patient is a 82 year old white female with a past medical history of dementia who presents to the ED with a cc of neuro symptoms beginning at 1015 this morning. Positive eye pain. Negative SOB, fevers, chills, history of seizures, blood thinning medications, or recent falls. As per her son, she was acting "her normal" around 0930 to 1000 this morning when he dropped her off at [facility]. He reports he got a call at 1015 that his mother was "shaking." Source of History: patient Onset: 1015 this morning Position: other (global) Quality: other ("shaking") Timing: other (sudden) Associated Symptoms: No fevers, No chills, No SOB Note: Positive eye pain. Negative history of seizures, blood thinning medications, or recent falls. Review of Systems See HPI for pertinent positives and negatives. A total of ten systems were reviewed and were otherwise negative. 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 Social History Smoking Status: Never Smoker Alcohol Use: none Marital Status: Housing Status: lives with significant other Current/Historical Medications Scheduled Aspirin (Aspirin Ec), 81 MG PO QAM Citalopram (Citalopram Hydrobromide), 20 MG PO DAILY Donepezil Hydrochloride (Aricept), 1 TAB PO DAILY Memantine Hcl (Namenda Xr), 1 CAP PO DAILY Multivitamin (Multivitamin), 1 TAB PO QAM Scheduled PRN Acetaminophen (Tylenol), 1 TAB PO Q8 PRN for Headache Allergies Coded Allergies: No Known Allergies (Verified , 01/27/18) Physical Exam Vital Signs Date Time Temp Pulse Resp B/P (MAP) Pulse Ox O2 Delivery O2 Flow Rate FiO2 01/27/18 13:33 78 23 01/27/18 13:03 59 13 96 01/27/18 12:24 97 Room Air 01/27/18 12:24 67 18 174/79 98 Room Air 01/27/18 12:23 174/79 01/27/18 12:08 65 01/27/18 12:03 58 12 01/27/18 11:49 95 Room Air 01/27/18 11:33 68 12 01/27/18 11:20 36.7 61 18 157/93 97 Room Air 01/27/18 11:18 99 Room Air 01/27/18 11:07 157/97 Physical Exam GENERAL: Awake, alert, well-appearing, NAD HENT: Normocephalic, atraumatic. EYES: Normal conjunctiva. PERRL 3 mm B/L. No anisocoria. EOMI no proptosis, no conjunctival injection NECK: Supple. No nuchal rigidity. FROM. RESPIRATORY: CTAB, no rhonchi, wheezing, crackles CARDIAC: RRR, no MRG ABDOMEN: Soft, NTND, BS+ MSK: No chest wall TTP, no LE edema NEURO: CN 2-12 intact, 5/5 upper and lower extremity strength, no dysmetria, no drift, good finger to nose, no sensory deficits. Finger count grossly normal. SKIN: No rash or jaundice noted. Medical Decision & Procedures ER Provider Diagnostic Interpretation: Radiology results as stated below per my review and radiologist interpretation: CHEST ONE VIEW PORTABLE CLINICAL HISTORY: EVALUATE WEAKNESS dyspnea COMPARISON STUDY: 11/16/2017 FINDINGS: The bones soft tissues and hemidiaphragms are normal. The cardiomediastinal silhouette is normal. The lungs are clear. The pulmonary vasculature is normal. IMPRESSION: Negative chest. The above report was generated using voice recognition software. It may contain grammatical, syntax or spelling errors. Electronically signed by: Mick Null M.D. 01/27/2018 12:34 PM HEAD WITHOUT CONTRAST (CT) CT DOSE: 601.98 mGy.cm HISTORY: Mental status change EVALUATE WEAKNESS TECHNIQUE: Multiaxial CT images of the head were performed without the use of intravenous contrast. A dose lowering technique was utilized adhering to the principles of ALARA. Comparison: 11/16/2017 Findings: The paranasal sinuses and mastoid air cells are clear. The calvarium and skull base are intact. The ventricles and sulci are within normal limits. There is no mass, hematoma, midline shift, or acute infarct. Impression: No acute intracranial abnormality. Age-related atrophy The above report was generated using voice recognition software. It may contain grammatical, syntax or spelling errors. Electronically signed by: Mick Null M.D. 01/27/2018 1:02 PM Laboratory Results 01/27/18 11:38 Red Blood Count 4.13, Mean Corpuscular Volume 93.0, Mean Corpuscular Hemoglobin 31.2, Mean Corpuscular Hemoglobin Concent 33.6, Mean Platelet Volume 9.6, Neutrophils (%) (Auto) 59.8, Lymphocytes (%) (Auto) 33.2, Monocytes (%) (Auto) 5.5, Eosinophils (%) (Auto) 0.6, Basophils (%) (Auto) 0.7, Neutrophils # (Auto) 3.24, Lymphocytes # (Auto) 1.80, Monocytes # (Auto) 0.30, Eosinophils # (Auto) 0.03, Basophils # (Auto) 0.04 01/27/18 11:38 Test 01/27/18 11:11 01/27/18 11:38 01/27/18 12:30 Bedside Glucose 106 mg/dl (70-90) White Blood Count 5.42 K/uL (4.8-10.8) Red Blood Count 4.13 M/uL (4.2-5.4) Hemoglobin 12.9 g/dL (12.0-16.0) Hematocrit 38.4 % (37-47) Mean Corpuscular Volume 93.0 fL (80-100) Mean Corpuscular Hemoglobin 31.2 pg (25-34) Mean Corpuscular Hemoglobin Concent 33.6 g/dl (32-36) Platelet Count 272 K/uL (130-400) Mean Platelet Volume 9.6 fL (7.4-10.4) Neutrophils (%) (Auto) 59.8 % Lymphocytes (%) (Auto) 33.2 % Monocytes (%) (Auto) 5.5 % Eosinophils (%) (Auto) 0.6 % Basophils (%) (Auto) 0.7 % Neutrophils # (Auto) 3.24 K/uL (1.4-6.5) Lymphocytes # (Auto) 1.80 K/uL (1.2-3.4) Monocytes # (Auto) 0.30 K/uL (0.11-0.59) Eosinophils # (Auto) 0.03 K/uL (0-0.5) Basophils # (Auto) 0.04 K/uL (0-0.2) RDW Standard Deviation 44.7 fL (36.4-46.3) RDW Coefficient of Variation 13.1 % (11.5-14.5) Immature Granulocyte % (Auto) 0.2 % Immature Granulocyte # (Auto) 0.01 K/uL (0.00-0.02) Prothrombin Time 10.7 SECONDS (9.0-12.0) Prothromb Time International Ratio 1.0 (0.9-1.1) Activated Partial Thromboplast Time 24.9 SECONDS (21.0-31.0) Partial Thromboplastin Ratio 1.0 Anion Gap 8.0 mmol/L (3-11) Est Creatinine Clear Calc Drug Dose 30.3 ml/min Estimated GFR () 54.6 Estimated GFR (Non- 47.1 BUN/Creatinine Ratio 16.8 (10-20) Calcium Level 9.0 mg/dl (8.5-10.1) Magnesium Level 2.4 mg/dl (1.8-2.4) Total Bilirubin 0.3 mg/dl (0.2-1) Direct Bilirubin < 0.1 mg/dl (0-0.2) Aspartate Amino Transf (AST/SGOT) 20 U/L (15-37) Alanine Aminotransferase (ALT/SGPT) 16 U/L (12-78) Alkaline Phosphatase 97 U/L (45-117) Troponin I < 0.015 ng/ml (0-0.045) Pro-B-Type Natriuretic Peptide 666 pg/ml (0-1800) Total Protein 7.4 gm/dl (6.4-8.2) Albumin 3.9 gm/dl (3.4-5.0) Lipase 129 U/L (73-393) Thyroid Stimulating Hormone (TSH) 1.050 uIu/ml (0.300-4.500) Urine Color YELLOW Urine Appearance CLEAR (CLEAR) Urine pH 5.5 (4.5-7.5) Urine Specific [place] 1.025 (1.000-1.030) Urine Protein NEG (NEG) Urine Glucose (UA) NEG (NEG) Urine Ketones 2+ (NEG) Urine Occult Blood NEG (NEG) Urine Nitrite NEG (NEG) Urine Bilirubin NEG (NEG) Urine Urobilinogen NEG (NEG) Urine Leukocyte Esterase NEG (NEG) Laboratory results reviewed by me Medications Administered Medications (Trade) Dose Ordered Sig/Saqib Route Start Time Stop Time Status Last Admin Dose Admin Sodium Chloride 500 ml @ 999 mls/hr Q31M STAT IV 01/27/18 12:34 01/27/18 13:04 DC 01/27/18 12:34 999 MLS/HR ECG Per My Interpretation Indication: altered mental status Rate (beats per minute): 60 Rhythm: normal sinus Findings: other (normal intervals, normal axis, no STS changes or TWI ) Comparison ECG Date: November, Change: no significant change ED Course 1136: The patient was evaluated in room B6. A complete history and physical exam was performed. 1312: I reevaluated the patient. Discussed results and discharge instructions with the patient and her son: They verbalized understanding and agreement. The patient is ready for discharge. Medical Decision The patient is a 82 year old white female with a past medical history of dementia who presents to the ED with a cc of neuro symptoms beginning at 1015 this morning. Positive eye pain. Negative SOB, fevers, chills, history of seizures, blood thinning medications, or recent falls. Nursing notes reviewed. Ancillary studies and prior records reviewed. Differential diagnosis: Etiologies such as metabolic, infection, hypo/hyperglycemia, electrolyte abnormalities, cardiac sources, intracerebral event, toxicologic, neurologic, as well as others were entertained. Patient was seen and evaluated the bedside. Patient of note does have a prior history of some dementia. Patient reportedly was at [facility] and had been found to be staring. There is some generalized shaking however the patient's eyes were open the patient was alert and able to respond to questioning. No prior history of seizures. No trauma the patient does not use any blood thinning medications. The patient is taking care of by 4 siblings who do check on her daily. The patient has a nonfocal neurologic exam and denies any complaints with the exception of some eye discomfort however this is been chronic over several months. The patient is normal visual acuity no conjunctival injection. Patient does have prior history of cataract surgery. Patient had blood work completed, CT, EKG, troponin, urinalysis. Patient's blood work is fairly unremarkable. Urinalysis negative for infection. Chest x- ray is clear. CT brain negative acute. EKG no acute ischemic changes and negative troponin. Patient has a fairly negative workup. I do not believe she requires further evaluation or treatment here in the hospital. Patient was given some IV fluids. Patient was also able tolerate p.o. Patient was deemed suitable for outpatient follow-up treatment at this time as I do not leave there is an infectious etiology, less likely TIA or stroke. I did consider things like seizure however again certainly not a complex seizure. Patient does have a history of dementia which may be contributory. Patient was given strict follow-up, discharge, and return precautions. All questions were answered. Patient was deemed suitable for outpatient follow-up at this time. Patient agreed with the plan of care and was safely discharged home. Medication Reconcilliation Current Medication List: was personally reviewed by me Blood Pressure Screening Patient's blood pressure: Elevated blood pressure Blood pressure disposition: Elevated BP felt to be situational Impression Primary Impression: Alteration of consciousness Additional Impression: History of dementia Scribe Attestation The scribe's documentation has been prepared under my direction and personally reviewed by me in its entirety. I confirm that the note above accurately reflects all work, treatment, procedures, and medical decision making performed by me. Departure Information Dispostion Home / Self-Care Referrals Tayler Lomas D.O. (PCP) Patient Instructions ED Dehydration, [facility] Additional Instructions Please return to the emergency department if you have worsening or recurrent symptoms not amenable to at-home treatment. Please call for a follow-up appointment with her primary care physician. Please take your medications as prescribed. If you have other concerns and/or complaints please feel free to also call your primary care physician's office or return the ED for further evaluation, management, and treatment. Take your medications as prescribed. You have been examined and treated today on an emergency basis only. This is not a substitute for, or an effort to provide, complete comprehensive medical care. It is impossible to recognize and treat all injuries or illnesses in a single emergency department visit. It is therefore important that you follow up closely with [facility], your PCP, and/or your specialist(s). Call as soon as possible for an appointment. Thank you for your time and consideration. I look forward to speaking with you again soon. Please don't hesitate to call us if you have any questions. Problem Qualifiers
[2018-01-27 12:16] LABS: BASO % 0.7 %; BASO ABS # 0.04 K/uL (0-0.2); EOS % 0.6 %; EOS ABS # 0.03 K/uL (0-0.5); HEMATOCRIT 38.4 % (37-47); HEMOGLOBIN 12.9 g/dL (12.0-16.0); IG# 0.01 K/uL (0.00-0.02); LYMPH % 33.2 %; MEAN CORPUSCULAR HEMOGLOBIN 31.2 pg (25-34); MEAN CORPUSCULAR HGB CONC 33.6 g/dl (32-36); MEAN PLATELET VOLUME 9.6 fL (7.4-10.4); MONO % 5.5 %; NEUT % 59.8 %; NEUT ABS # 3.24 K/uL (1.4-6.5); PLATELET COUNT 272 K/uL (130-400); RED CELL DISTRIBUTION WIDTH CV 13.1 % (11.5-14.5); RED CELL DISTRIBUTION WIDTH SD 44.7 fL (36.4-46.3); WHITE BLOOD COUNT 5.42 K/uL (4.8-10.8)
[2018-01-27 12:21] LABS: PTT PATIENT 24.9 SECONDS (21.0-31.0)
[2018-01-27 12:23] LABS: ALBUMIN 3.9 gm/dl (3.4-5.0); ALT/SGPT 16 U/L (12-78); AST/SGOT 20 U/L (15-37); BLOOD UREA NITROGEN 18 mg/dl (7-18); CARBON DIOXIDE 27 mmol/L (21-32); CREATININE 1.08 mg/dl (0.60-1.20); GLUCOSE 94 mg/dl (70-99); LIPASE 129 U/L (73-393); POTASSIUM 3.9 mmol/L (3.5-5.1); SODIUM 142 mmol/L (136-145)
[2018-01-27 12:24] VITALS: BP 174/79; O2SAT 97
[2018-01-27 12:34] LABS: ALKALINE PHOSPHATASE 97 U/L (45-117); TOTAL PROTEIN 7.4 gm/dl (6.4-8.2)
[2018-01-27] MEDS ORDERED: SODIUM CHLORIDE 0.9% 500ML 500 ML IV STA (12:34)
--- NOTE | 2018-01-27 12:35 | DIAGNOSTIC IMAGING REPORT ---
CHEST ONE VIEW PORTABLE CLINICAL HISTORY: EVALUATE WEAKNESS dyspnea COMPARISON STUDY: 11/16/2017 FINDINGS: The bones soft tissues and hemidiaphragms are normal. The cardiomediastinal silhouette is normal. The lungs are clear. The pulmonary vasculature is normal. IMPRESSION: Negative chest. The above report was generated using voice recognition software. It may contain grammatical, syntax or spelling errors. Electronically signed by: Mick Null M.D. 01/27/2018 12:34 PM Dictated Date/Time: 01/27/2018 12:34 PM
[2018-01-27 13:03] VITALS: O2SAT 96
--- NOTE | 2018-01-27 13:04 | DIAGNOSTIC IMAGING REPORT ---
HEAD WITHOUT CONTRAST (CT) CT DOSE: 601.98 mGy.cm HISTORY: Mental status change EVALUATE WEAKNESS TECHNIQUE: Multiaxial CT images of the head were performed without the use of intravenous contrast. A dose lowering technique was utilized adhering to the principles of ALARA. Comparison: 11/16/2017 Findings: The paranasal sinuses and mastoid air cells are clear. The calvarium and skull base are intact. The ventricles and sulci are within normal limits. There is no mass, hematoma, midline shift, or acute infarct. Impression: No acute intracranial abnormality. Age-related atrophy The above report was generated using voice recognition software. It may contain grammatical, syntax or spelling errors. Electronically signed by: Mick Null M.D. 01/27/2018 1:02 PM Dictated Date/Time: 01/27/2018 1:02 PM
[2018-01-27 13:33] VITALS: PULSE 78
== END 2018-01-27 13:53 | disposition home or self-care (01) ==
LOC: EDBD 11:03 → C.EDB 11:04
DX: R40.4 Transient alteration of awareness (principal); F03.90 Unspecified dementia, unspecified severity, without behavioral disturbance, psychotic disturbance, mood disturbance, and anxiety; H57.10 Ocular pain, unspecified eye; Z98.49 Cataract extraction status, unspecified eye; R25.1 Tremor, unspecified; M50.30 Other cervical disc degeneration, unspecified cervical region; Z79.82 Long term (current) use of aspirin

== ENCOUNTER 2018-05-08 16:25 | Emergency (ER) | payer OTHER ==
[~2018-05-08] VITALS: Ht 157.5 cm; Wt 48.0 kg
[~2018-05-08 16:25] MED LIST changes: -AMOX500C3 PO; -CLX/20 PO; -DONE10TA12 PO
[2018-05-08 16:35] VITALS: TEMP 36.3; Ht 157.5 cm; Wt 48.0 kg
--- NOTE | 2018-05-08 16:59 | EMERGENCY ROOM VISIT NOTE ---
History Report prepared by Jacinda: Jaime Martinez Under the Supervision of: Dr. Chani Ledesma D.O. First contact with patient: 16:31 Chief Complaint: OTHER COMPLAINT Stated Complaint: MEDICAL CLEARANCE FOR HALF-WAY ADMIT History of Present Illness The patient is a 83 year old female who presents to the Emergency Room after being referred by the office of aging for a care home medical clearance on an emergency basis. Patient is present with her and nephew. Nurse states the patient was accepted to [facility]. Nurse adds that if the patient gets medical clearance she can go to [facility] now. She states if the patient is admitted, the patient can go there after. Patient states she has intermittent headaches. She does not know how often they come on. She denies any fevers, chills, nausea, or trouble breathing. She denies taking any medications. Source of History: patient Onset: Recent Position: head Timing: intermittent Modifying Factors (Worsening): other (None) Modifying Factors (Relieving): other (None) Associated Symptoms: + headache Review of Systems See HPI for pertinent positives & negatives. A total of 10 systems reviewed and were otherwise negative. 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 Social History Smoking Status: Never Smoker Alcohol Use: none Marital Status: Housing Status: lives with significant other Current/Historical Medications Scheduled Aspirin (Aspirin Ec), 81 MG PO QAM Citalopram (Citalopram Hydrobromide), 20 MG PO DAILY Donepezil Hydrochloride (Aricept), 10 MG PO DAILY Memantine HCl (Memantine HCl), 10 MG PO BIDM Multiple Vitamins W/ Minerals (Ocuvite), 1 TAB PO DAILY Probiotic Product (Probiotic Acidophilus), 1 CAP PO DAILY Scheduled PRN Diclofenac Sodium (Topical) (Diclofenac Sodium), 2 GM TOP BID PRN for Pain Allergies Coded Allergies: No Known Allergies (Verified , 01/27/18) Physical Exam Vital Signs Date Time Temp Pulse Resp B/P (MAP) Pulse Ox O2 Delivery O2 Flow Rate FiO2 05/08/18 20:20 67 132/67 97 05/08/18 16:35 36.3 71 97 144/80 20 Physical Exam GENERAL: alert, well appearing, well nourished, no distress, non-toxic EYE EXAM: normal conjunctiva, PERRL and EOM's grossly intact OROPHARYNX: no exudate, no erythema, lips, buccal mucosa, and tongue normal and mucous membranes are moist NECK: supple, no nuchal rigidity, no adenopathy, non-tender LUNGS: Clear to auscultation. Normal chest wall mechanics HEART: no murmurs, S1 normal and S2 normal ABDOMEN: abdomen soft, non-tender, normo-active bowel sounds, no masses, no rebound or guarding. BACK: Back is symmetrical on inspection and there is no deformity, no midline tenderness, no CVA tenderness. SKIN: no rashes and no bruising UPPER EXTREMITIES: upper extremities are grossly normal. LOWER EXTREMITIES: No pitting edema. NEURO EXAM: Confused otherwise normal sensorium, cranial nerves II-XII grossly intact, normal speech, no gross weakness of arms, no gross weakness of legs. Medical Decision & Procedures ER Provider Diagnostic Interpretation: Radiology results have been interpreted by the radiologist and reviewed by me. KUB CLINICAL HISTORY: nausea COMPARISON STUDY: 03/21/2017 FINDINGS: Degenerative changes are present within the spine. There is a levoscoliosis. There is a total right hip arthroplasty. There is no pathologic bowel dilatation. There is scattered stool within the colon. There are no calcifications suspicious for urinary tract calculi. IMPRESSION: No evidence of pathologic bowel dilatation. Electronically signed by: Rufus Lemus M.D. 05/08/2018 5:34 PM CHEST ONE VIEW PORTABLE CLINICAL HISTORY: nausea MEDICAL CLEARANCE FOR HALF-WAY COMPARISON STUDY: 01/27/2018 FINDINGS: The cardiac and mediastinal contours are normal. There is no evidence of focal pulmonary consolidation. There is no evidence of failure. No pleural effusions are visualized.[ There is a stable linear area of scar/atelectasis with left midlung zone. IMPRESSION: No active disease in the chest. Electronically signed by: Rufus Lemus M.D. 05/08/2018 5:33 PM Laboratory Results 05/08/18 17:20 Red Blood Count 3.78, Mean Corpuscular Volume 93.4, Mean Corpuscular Hemoglobin 30.4, Mean Corpuscular Hemoglobin Concent 32.6, Mean Platelet Volume 9.3, Neutrophils (%) (Auto) 38.1, Lymphocytes (%) (Auto) 52.2, Monocytes (%) (Auto) 7.8, Eosinophils (%) (Auto) 1.2, Basophils (%) (Auto) 0.7, Neutrophils # (Auto) 2.20, Lymphocytes # (Auto) 3.02, Monocytes # (Auto) 0.45, Eosinophils # (Auto) 0.07, Basophils # (Auto) 0.04 05/08/18 17:20 Test 05/08/18 17:20 05/08/18 18:30 05/08/18 19:15 White Blood Count 5.78 K/uL (4.8-10.8) Red Blood Count 3.78 M/uL (4.2-5.4) Hemoglobin 11.5 g/dL (12.0-16.0) Hematocrit 35.3 % (37-47) Mean Corpuscular Volume 93.4 fL (80-100) Mean Corpuscular Hemoglobin 30.4 pg (25-34) Mean Corpuscular Hemoglobin Concent 32.6 g/dl (32-36) Platelet Count 262 K/uL (130-400) Mean Platelet Volume 9.3 fL (7.4-10.4) Neutrophils (%) (Auto) 38.1 % Lymphocytes (%) (Auto) 52.2 % Monocytes (%) (Auto) 7.8 % Eosinophils (%) (Auto) 1.2 % Basophils (%) (Auto) 0.7 % Neutrophils # (Auto) 2.20 K/uL (1.4-6.5) Lymphocytes # (Auto) 3.02 K/uL (1.2-3.4) Monocytes # (Auto) 0.45 K/uL (0.11-0.59) Eosinophils # (Auto) 0.07 K/uL (0-0.5) Basophils # (Auto) 0.04 K/uL (0-0.2) RDW Standard Deviation 45.6 fL (36.4-46.3) RDW Coefficient of Variation 13.3 % (11.5-14.5) Immature Granulocyte % (Auto) 0.0 % Immature Granulocyte # (Auto) 0.00 K/uL (0.00-0.02) Red Blood Cell Morphology Unremarkable Anion Gap 5.0 mmol/L (3-11) Est Creatinine Clear Calc Drug Dose 30.0 ml/min Estimated GFR () 56.7 Estimated GFR (Non- 49.0 BUN/Creatinine Ratio 17.2 (10-20) Calcium Level 8.3 mg/dl (8.5-10.1) Magnesium Level 2.3 mg/dl (1.8-2.4) Total Bilirubin 0.2 mg/dl (0.2-1) Aspartate Amino Transf (AST/SGOT) 14 U/L (15-37) Alanine Aminotransferase (ALT/SGPT) 15 U/L (12-78) Alkaline Phosphatase 76 U/L (45-117) Troponin I < 0.015 ng/ml (0-0.045) Total Protein 6.6 gm/dl (6.4-8.2) Albumin 3.4 gm/dl (3.4-5.0) Globulin 3.2 gm/dl (2.5-4.0) Albumin/Globulin Ratio 1.1 (0.9-2) Thyroid Stimulating Hormone (TSH) 0.789 uIu/ml (0.300-4.500) Prothrombin Time 10.2 SECONDS (9.0-12.0) Prothromb Time International Ratio 1.0 (0.9-1.1) Activated Partial Thromboplast Time 25.8 SECONDS (21.0-31.0) Partial Thromboplastin Ratio 1.0 Urine Color YELLOW Urine Appearance CLEAR (CLEAR) Urine pH 5.0 (4.5-7.5) Urine Specific [place] 1.032 (1.000-1.030) Urine Protein NEG (NEG) Urine Glucose (UA) NEG (NEG) Urine Ketones NEG (NEG) Urine Occult Blood NEG (NEG) Urine Nitrite NEG (NEG) Urine Bilirubin NEG (NEG) Urine Urobilinogen NEG (NEG) Urine Leukocyte Esterase TRACE (NEG) Urine WBC (Auto) 5-10 /hpf (0-5) Urine RBC (Auto) 0-4 /hpf (0-4) Urine Hyaline Casts (Auto) 1-5 /lpf (0-5) Urine Epithelial Cells (Auto) >30 /lpf (0-5) Urine Bacteria (Auto) NEG (NEG) Urine Crystals CALCIUM OXALATE (NONE Laboratory results per my review. Medications Administered Medications (Trade) Dose Ordered Sig/Saqib Route Start Time Stop Time Status Last Admin Dose Admin Memantine (Namenda Tab) 10 mg NOW STAT PO 05/08/18 18:40 05/08/18 18:41 DC 05/08/18 18:40 10 MG ECG Per My Interpretation Indication: altered mental status Rate (beats per minute): 64 Rhythm: normal sinus Findings: no acute ischemic change, no ectopy, other (Normal axis/intervals) ED Course 163: The patient was evaluated in room C12B. A complete history and physical exam was performed. 183: I reevaluated the patient and updated her on her findings. 184: Memantine 10mg PO 2001: Upon reevaluation, the patient is feeling better. I discussed the findings and the treatment plan with the patient. She verbalizes agreement and understanding. She was discharged to the care home. Medical Decision Patient well-appearing here and sent in for medical screening evaluation and clearance to be placed in a care home as arranged emergently by the office of aging. Patient here with her . Patient here has no complaints, is ambulatory and conversational. Patient clearly with cognitive deficits and history of dementia. Patient hemodynamically stable, labs reassuring, mild anemia noted but chronic. No evidence of UTI, no recent trauma according to family. They state patient is in her usual state. I have a low suspicion for any occult traumatic injury, CVA or ICH, or other metabolic abnormality. Feel this time patient can safely be placed in the care home. Medication Reconcilliation Current Medication List: was personally reviewed by me Blood Pressure Screening Patient's blood pressure: Elevated blood pressure Blood pressure disposition: Referred to PCP Impression Primary Impression: Encounter for medical screening examination Additional Impressions: Anemia Dementia Scribe Attestation The scribe's documentation has been prepared under my direction and personally reviewed by me in its entirety. I confirm that the note above accurately reflects all work, treatment, procedures, and medical decision making performed by me. Departure Information Dispostion Transfer Acute Care Facility Referrals Tayler Lomas D.O. (PCP) Forms HOME CARE DOCUMENTATION FORM, IMPORTANT VISIT INFORMATION, WORK / SCHOOL INSTRUCTIONS Patient Instructions My [facility] Problem Qualifiers Additional Impressions: Anemia Anemia type: unspecified type Qualified Codes: D64.9 - Anemia, unspecified Dementia Dementia type: unspecified type Dementia behavioral disturbance: without behavioral disturbance Qualified Codes: F03.90 - Unspecified dementia without behavioral disturbance
--- NOTE | 2018-05-08 17:34 | DIAGNOSTIC IMAGING REPORT ---
CHEST ONE VIEW PORTABLE CLINICAL HISTORY: nausea MEDICAL CLEARANCE FOR SHELTER COMPARISON STUDY: 01/27/2018 FINDINGS: The cardiac and mediastinal contours are normal. There is no evidence of focal pulmonary consolidation. There is no evidence of failure. No pleural effusions are visualized.[ There is a stable linear area of scar/atelectasis with left midlung zone. IMPRESSION: No active disease in the chest. Electronically signed by: Rufus Lemus M.D. 05/08/2018 5:33 PM Dictated Date/Time: 05/08/2018 5:32 PM
--- NOTE | 2018-05-08 17:35 | DIAGNOSTIC IMAGING REPORT ---
KUB CLINICAL HISTORY: nausea COMPARISON STUDY: 03/21/2017 FINDINGS: Degenerative changes are present within the spine. There is a levoscoliosis. There is a total right hip arthroplasty. There is no pathologic bowel dilatation. There is scattered stool within the colon. There are no calcifications suspicious for urinary tract calculi. IMPRESSION: No evidence of pathologic bowel dilatation. Electronically signed by: Rufus Lemus M.D. 05/08/2018 5:34 PM Dictated Date/Time: 05/08/2018 5:33 PM
[2018-05-08] MEDS ORDERED: MEMA1TAB4 PO (17:50)
[2018-05-08] MEDS ORDERED: DICL1GEL34 TOP (17:50)
[2018-05-08 17:52] LABS: HEMATOCRIT 35.3 % (37-47); HEMOGLOBIN 11.5 g/dL (12.0-16.0); MEAN CELL VOLUME 93.4 fL (80-100); MEAN CORPUSCULAR HEMOGLOBIN 30.4 pg (25-34); MEAN CORPUSCULAR HGB CONC 32.6 g/dl (32-36); MEAN PLATELET VOLUME 9.3 fL (7.4-10.4); PLATELET COUNT 262 K/uL (130-400); RED CELL DISTRIBUTION WIDTH CV 13.3 % (11.5-14.5); RED CELL DISTRIBUTION WIDTH SD 45.6 fL (36.4-46.3); WHITE BLOOD COUNT 5.78 K/uL (4.8-10.8)
[2018-05-08] MEDS ORDERED: PROB1CAP6 PO (17:52)
[2018-05-08] MEDS ORDERED: MULT-188 PO (17:52)
[2018-05-08 18:22] LABS: ALBUMIN 3.4 gm/dl (3.4-5.0); ALKALINE PHOSPHATASE 76 U/L (45-117); ALT/SGPT 15 U/L (12-78); AST/SGOT 14 U/L (15-37); BLOOD UREA NITROGEN 18 mg/dl (7-18); CALCIUM 8.3 mg/dl (8.5-10.1); CARBON DIOXIDE 25 mmol/L (21-32); CREATININE 1.04 mg/dl (0.60-1.20); GLUCOSE 85 mg/dl (70-99); POTASSIUM 3.9 mmol/L (3.5-5.1); SODIUM 139 mmol/L (136-145); TOTAL PROTEIN 6.6 gm/dl (6.4-8.2)
[2018-05-08] MEDS ORDERED: MEMANTINE 10 MG TAB PO STA (18:40)
[2018-05-08 18:42] LABS: BASO % 0.7 %; BASO ABS # 0.04 K/uL (0-0.2); EOS % 1.2 %; EOS ABS # 0.07 K/uL (0-0.5); LYMPH % 52.2 %; LYMPH ABS # 3.02 K/uL (1.2-3.4); MONO % 7.8 %; MONO ABS # 0.45 K/uL (0.11-0.59); NEUT % 38.1 %
[2018-05-08 18:50] LABS: PTT PATIENT 25.8 SECONDS (21.0-31.0)
[2018-05-08 20:20] VITALS: BP 132/67; PULSE 67; O2SAT 97
[2018-05-08] MEDS ORDERED: DONE10TA12 PO (22:12)
[2018-05-08] MEDS ORDERED: CLX/20 PO (23:01)
== END 2018-05-08 20:20 | disposition other institution (70) ==
LOC: C.EDB 16:26 → C.EDC 20:20
DX: Z02.2 Encounter for examination for admission to residential institution (principal); D64.9 Anemia, unspecified; F03.90 Unspecified dementia, unspecified severity, without behavioral disturbance, psychotic disturbance, mood disturbance, and anxiety; R03.0 Elevated blood-pressure reading, without diagnosis of hypertension; R51 Headache; Z79.82 Long term (current) use of aspirin; Z79.899 Other long term (current) drug therapy

== ENCOUNTER 2018-05-27 18:39 | Observation (INO) | payer OTHER ==
[~2018-05-27] VITALS: Ht 162.6 cm; Wt 45.3 kg
[~2018-05-27 18:39] MED LIST changes: -ACET-1256 PO; +CLX/20 PO; +DICL1GEL34 TOP; +DONE10TA12 PO; -MEMA1CAP7 PO; +MEMA1TAB4 PO; +MULT-188 PO; -MULT-506 PO; +PROB1CAP6 PO
[2018-05-27] MEDS ORDERED: SODIUM CHLORIDE 0.9% 1000ML 1,000 ML IV STA (18:53)
[2018-05-27 19:39] LABS: BASO % 0.2 %; BASO ABS # 0.02 K/uL (0-0.2); EOS % 0.4 %; EOS ABS # 0.04 K/uL (0-0.5); HEMATOCRIT 40.1 % (37-47); HEMOGLOBIN 13.1 g/dL (12.0-16.0); IG# 0.02 K/uL (0.00-0.02); LYMPH % 12.9 %; LYMPH ABS # 1.24 K/uL (1.2-3.4); MEAN CELL VOLUME 92.6 fL (80-100); MEAN CORPUSCULAR HEMOGLOBIN 30.3 pg (25-34); MEAN CORPUSCULAR HGB CONC 32.7 g/dl (32-36); MEAN PLATELET VOLUME 9.5 fL (7.4-10.4); MONO % 3.9 %; MONO ABS # 0.38 K/uL (0.11-0.59); NEUT % 82.4 %; NEUT ABS # 7.94 K/uL (1.4-6.5); PLATELET COUNT 269 K/uL (130-400); RED CELL DISTRIBUTION WIDTH CV 12.7 % (11.5-14.5); RED CELL DISTRIBUTION WIDTH SD 43.2 fL (36.4-46.3); WHITE BLOOD COUNT 9.64 K/uL (4.8-10.8)
[2018-05-27 19:47] LABS: PTT PATIENT 22.2 SECONDS (21.0-31.0)
--- NOTE | 2018-05-27 20:05 | DIAGNOSTIC IMAGING REPORT ---
CT OF THE HEAD WITHOUT CONTRAST CLINICAL HISTORY: Fall. Weakness. COMPARISON STUDY: Head CT January 27, 2018. TECHNIQUE: Helical axial images of the head were obtained without IV contrast. Automated exposure control was utilized for the study. A dose lowering technique was utilized adhering to the principles of ALARA. FINDINGS: No acute intracranial hemorrhage, midline shift or mass effect is present. Ventricular system is stable. Basilar cisterns are patent. Moderate atrophy is noted. There are no findings to suggest acute dural sinus thrombosis or acute territorial infarct. White matter hypodensity suggests small vessel disease. There is no calvarial fracture. IMPRESSION: 1. No acute intracranial findings. 2. No calvarial fracture. Electronically signed by: John Mosley M.D. 05/27/2018 8:03 PM Dictated Date/Time: 05/27/2018 8:01 PM
[2018-05-27 20:06] LABS: ALBUMIN 3.7 gm/dl (3.4-5.0); ALKALINE PHOSPHATASE 78 U/L (45-117); ALT/SGPT 20 U/L (12-78); AST/SGOT 20 U/L (15-37); BLOOD UREA NITROGEN 13 mg/dl (7-18); CALCIUM 9.3 mg/dl (8.5-10.1); CARBON DIOXIDE 28 mmol/L (21-32); CREATININE 1.31 mg/dl (0.60-1.20); GLUCOSE 143 mg/dl (70-99); LIPASE 146 U/L (73-393); POTASSIUM 3.7 mmol/L (3.5-5.1); SODIUM 140 mmol/L (136-145); TOTAL PROTEIN 6.9 gm/dl (6.4-8.2)
--- NOTE | 2018-05-27 20:08 | DIAGNOSTIC IMAGING REPORT ---
CT OF THE CERVICAL SPINE WITHOUT CONTRAST CLINICAL HISTORY: Fall. COMPARISON STUDY: Cervical spine CT and MRI February 19, 2016. TECHNIQUE: Helical axial images of the cervical spine were obtained without IV contrast. Sagittal and coronal reconstructions were viewed. A dose lowering technique was utilized adhering to the principles of ALARA. FINDINGS: The craniocervical junction is intact. No acute cervical spine fracture is noted. Slight anterolisthesis of C3 on C4 is unchanged since CT of February 19, 2016. Severe multilevel disc space narrowing and facet arthrosis is noted. There is no prevertebral edema. The appearance of the cervical spine has not significantly changed. IMPRESSION: No acute cervical spine fracture or subluxation. Electronically signed by: John Mosley M.D. 05/27/2018 8:07 PM Dictated Date/Time: 05/27/2018 8:04 PM
--- NOTE | 2018-05-27 21:07 | EMERGENCY ROOM VISIT NOTE ---
History First contact with patient: 18:53 Chief Complaint: FALL Stated Complaint: FALL/ EVAL, [facility] History of Present Illness The patient is a 83 year old female who presents to the Emergency Room after a fall the [facility]. The patient reportedly had an unwitnessed fall. She apparently fell onto her buttocks. A staff member was helping her up and then the patient had what was described as a syncopal episode that lasted about 60 seconds. The staff reported that her head tilted back and she had some mild shaking of her head but there was not any full tonic- clonic or true seizure activity described. The patient's family states that she has dementia and has good days and bad days. They noted that yesterday she seemed to be much more confused than usual. Today she was doing well. She was seen by family about 30 minutes before the episode. Currently the patient denies any complaints. She denies any pain. She is unsure what caused the fall. She does not remember the event. Family does note that she has had some chronic neck issues. The patient does not feel like she caused any additional injury but on further questioning states that her shoulders to feel somewhat sore. Pt denies headache, fevers, chills, diaphoresis, visual changes, chest pain, breathing difficulties, nausea, vomiting, abdominal pain, back pain, melena, hematochezia, urinary symptoms, numbness, weakness, lymphadenopathy, rash, extremity pain, open wounds, or other complaints. Review of Systems See HPI for pertinent positives and negatives. A total of ten systems were reviewed and were otherwise negative. 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 Social History Smoking Status: Unknown if Ever Smoked Alcohol Use: none Marital Status: Housing Status: lives with significant other Current/Historical Medications Scheduled Aspirin (Aspirin Ec), 81 MG PO QAM Citalopram (Citalopram Hydrobromide), 20 MG PO DAILY Donepezil Hydrochloride (Aricept), 10 MG PO DAILY Memantine HCl (Memantine HCl), 10 MG PO BIDM Multiple Vitamins W/ Minerals (Ocuvite), 1 TAB PO DAILY Probiotic Product (Probiotic Acidophilus), 1 CAP PO DAILY Scheduled PRN Acetaminophen (Tylenol), 650 MG PO Q8 PRN for Pain or Fever Artificial Tear Solution (Artificial Tears), 1 DROPS OPB Q4 PRN for DRYNESS Diclofenac Sodium (Topical) (Diclofenac Sodium), 1 APPLN TOP BID PRN for Pain Magnesium Hydroxide (Milk Of Magnesia), 30 ML PO DAILY PRN for Constipation Physical Exam Vital Signs Date Time Temp Pulse Resp B/P (MAP) Pulse Ox O2 Delivery O2 Flow Rate FiO2 05/27/18 22:15 62 20 118/64 97 Room Air 05/27/18 21:57 71 05/27/18 21:14 55 130/69 95 Room Air 71 138/72 64 158/70 05/27/18 20:55 56 18 149/68 96 Room Air 05/27/18 19:57 60 17 165/74 96 Room Air 05/27/18 18:57 65 05/27/18 18:46 Room Air 05/27/18 18:40 36.7 78 20 124/60 95 Room Air Physical Exam GENERAL: Awake, alert, well-appearing, in no distress HENT: Normocephalic, atraumatic. Oropharynx unremarkable. EYES: Normal conjunctiva. Sclera non-icteric. NECK: Supple. No nuchal rigidity. FROM. No masses. No midline tenderness or step-offs. RESPIRATORY: Clear to auscultation. No wheezes. No rales. Normal respiratory effort. CARDIAC: Normal rate. Normal rhythm. No murmurs. No rubs. Extremities warm and well perfused. Pulses equal. No JVD. GI: Soft, non-distended. No tenderness to palpation. No rebound or guarding. No masses. RECTAL: Deferred. MUSCULOSKELETAL: Atraumatic. Chest examination reveals no tenderness. The back is symmetrical on inspection without obvious abnormality. There is no CVA tenderness to palpation. No joint edema. LOWER EXTREMITIES: Calves are equal size bilaterally and non-tender. No edema. No discoloration. Atraumatic. Good range of motion of the hips. No hip tenderness. NEURO: Normal sensorium. No sensory or motor deficits noted. SKIN: No rash or jaundice noted. Medical Decision & Procedures ER Provider Diagnostic Interpretation: Head CT: A noncontrast CT scan of the head was performed and was negative for tumor, fracture, intracranial hemorrhage, or other acute pathology. Cervical spine CT revealed chronic changes. No acute fracture or dislocation. Laboratory Results 05/27/18 19:22 Red Blood Count 4.33, Mean Corpuscular Volume 92.6, Mean Corpuscular Hemoglobin 30.3, Mean Corpuscular Hemoglobin Concent 32.7, Mean Platelet Volume 9.5, Neutrophils (%) (Auto) 82.4, Lymphocytes (%) (Auto) 12.9, Monocytes (%) (Auto) 3.9, Eosinophils (%) (Auto) 0.4, Basophils (%) (Auto) 0.2, Neutrophils # (Auto) 7.94, Lymphocytes # (Auto) 1.24, Monocytes # (Auto) 0.38, Eosinophils # (Auto) 0.04, Basophils # (Auto) 0.02 05/27/18 19:22 Test 05/27/18 19:22 05/27/18 20:00 White Blood Count 9.64 K/uL (4.8-10.8) Red Blood Count 4.33 M/uL (4.2-5.4) Hemoglobin 13.1 g/dL (12.0-16.0) Hematocrit 40.1 % (37-47) Mean Corpuscular Volume 92.6 fL (80-100) Mean Corpuscular Hemoglobin 30.3 pg (25-34) Mean Corpuscular Hemoglobin Concent 32.7 g/dl (32-36) Platelet Count 269 K/uL (130-400) Mean Platelet Volume 9.5 fL (7.4-10.4) Neutrophils (%) (Auto) 82.4 % Lymphocytes (%) (Auto) 12.9 % Monocytes (%) (Auto) 3.9 % Eosinophils (%) (Auto) 0.4 % Basophils (%) (Auto) 0.2 % Neutrophils # (Auto) 7.94 K/uL (1.4-6.5) Lymphocytes # (Auto) 1.24 K/uL (1.2-3.4) Monocytes # (Auto) 0.38 K/uL (0.11-0.59) Eosinophils # (Auto) 0.04 K/uL (0-0.5) Basophils # (Auto) 0.02 K/uL (0-0.2) RDW Standard Deviation 43.2 fL (36.4-46.3) RDW Coefficient of Variation 12.7 % (11.5-14.5) Immature Granulocyte % (Auto) 0.2 % Immature Granulocyte # (Auto) 0.02 K/uL (0.00-0.02) Prothrombin Time 10.7 SECONDS (9.0-12.0) Prothromb Time International Ratio 1.0 (0.9-1.1) Activated Partial Thromboplast Time 22.2 SECONDS (21.0-31.0) Partial Thromboplastin Ratio 0.9 Anion Gap 9.0 mmol/L (3-11) Estimated GFR () 42.9 Estimated GFR (Non- 37.0 BUN/Creatinine Ratio 9.8 (10-20) Calcium Level 9.3 mg/dl (8.5-10.1) Magnesium Level 2.5 mg/dl (1.8-2.4) Total Bilirubin 0.5 mg/dl (0.2-1) Direct Bilirubin 0.1 mg/dl (0-0.2) Aspartate Amino Transf (AST/SGOT) 20 U/L (15-37) Alanine Aminotransferase (ALT/SGPT) 20 U/L (12-78) Alkaline Phosphatase 78 U/L (45-117) Troponin I < 0.015 ng/ml (0-0.045) Total Protein 6.9 gm/dl (6.4-8.2) Albumin 3.7 gm/dl (3.4-5.0) Lipase 146 U/L (73-393) Thyroid Stimulating Hormone (TSH) 1.620 uIu/ml (0.300-4.500) Urine Color DK YELLOW Urine Appearance CLOUDY (CLEAR) Urine pH 5.0 (4.5-7.5) Urine Specific [place] 1.028 (1.000-1.030) Urine Protein 1+ (NEG) Urine Glucose (UA) NEG (NEG) Urine Ketones TRACE (NEG) Urine Occult Blood NEG (NEG) Urine Nitrite NEG (NEG) Urine Bilirubin NEG (NEG) Urine Urobilinogen NEG (NEG) Urine Leukocyte Esterase MODERATE (NEG) Urine WBC (Auto) >30 /hpf (0-5) Urine RBC (Auto) 10-30 /hpf (0-4) Urine Hyaline Casts (Auto) 1-5 /lpf (0-5) Urine Epithelial Cells (Auto) 5-10 /lpf (0-5) Urine Bacteria (Auto) NEG (NEG) Urine Pathogenic Casts /lpf (0) Medications Administered Medications (Trade) Dose Ordered Sig/Saqib Route Start Time Stop Time Status Last Admin Dose Admin Sodium Chloride 1,000 ml @ 125 mls/hr Q8H STAT IV 05/27/18 18:53 05/28/18 02:52 05/27/18 19:56 125 MLS/HR Ceftriaxone Sodium (Rocephin Inj) 1 gm NOW STAT IV 05/27/18 21:40 05/27/18 21:41 DC 05/27/18 22:14 1 GM ECG Per My Interpretation Indication: syncope Rate (beats per minute): 64 Rhythm: normal sinus Findings: no acute ischemic change, no ectopy Change: No PACs, no PVCs, normal intervals. Medical Decision Triage Nursing notes reviewed. The patient's presentation and history were concerning for a fall and syncope. Etiologies such as contusion, fracture, soft tissue injury, vasovagal event, infection, hypoglycemia, electrolyte abnormalities, cardiac sources, intracerebral event, toxicologic, neurologic, as well as others were entertained. The patient was evaluated. She was without any significant complaints. Physical examination was as above. She underwent imaging, EKG, blood work, and urinalysis. Her blood work was unremarkable. CT scan of the head and neck did not reveal any acute findings. The patient's blood work was unremarkable. Urinalysis was concerning for infection. The patient was hydrated. She was given IV Rocephin. Given the reports of the syncopal episode and the UTI I discussed the case with the patient and her family. I advised that the patient should be monitored in the hospital at least overnight due to the syncope. Family and patient were in agreement. I did consult with the [facility] hospitalist, Dr. Thompson. Patient was evaluated in the ER for further management. Medication Reconcilliation Current Medication List: was personally reviewed by me Blood Pressure Screening Patient's blood pressure: Elevated blood pressure Refer to hospitalist. Impression Primary Impression: Syncope and collapse Additional Impressions: Fall UTI (urinary tract infection) Departure Information Dispostion Being Evaluated By Hospitalist Referrals Tayler Lomas D.O. (PCP) Patient Instructions My [facility] Problem Qualifiers
[2018-05-27] MEDS ORDERED: CEFTRIAXONE SOD INJ 1 GM ADDVIAL IV STA (21:40)
[2018-05-27] MEDS ORDERED: ACET-1311 PO (22:21)
[2018-05-27] MEDS ORDERED: ARTISOL12 OPB (22:24)
[2018-05-27] MEDS ORDERED: MOML PO (22:26)
[2018-05-28] MEDS ORDERED: NITROGLYCERIN 0.4 MG SL PER TAB CHARGE SL PRN (01:00)
[2018-05-28] MEDS ORDERED: ACETAMINOPHEN 325 MG TAB PO PRN (01:00)
[2018-05-28] MEDS ORDERED: LACTATED RINGER'S 1000ML 1,000 ML IV ONE (01:00)
[2018-05-28] MEDS ORDERED: PROCHLORPERAZINE INJ 5 MG in SYRINGE 4 ML IV PRN (01:00)
[2018-05-28 01:10] VITALS: BP 186/74; PULSE 72; TEMP 36.6; O2SAT 96; Ht 162.6 cm; Wt 45.3 kg
[2018-05-28] MEDS ORDERED: IV FLUIDS COMPLETED PRN (01:45)
[2018-05-28 04:15] VITALS: BP 153/73; PULSE 57; TEMP 36.7; O2SAT 95
[2018-05-28] MEDS: HEPARIN SOD 5000 UNIT/0.5 ML CARP SQ SCH ×2 (05:20→13:55)
[2018-05-28 06:35] LABS: BASO % 0.5 %; BASO ABS # 0.03 K/uL (0-0.2); EOS % 1.4 %; EOS ABS # 0.09 K/uL (0-0.5); HEMOGLOBIN 11.3 g/dL (12.0-16.0); LYMPH % 46.6 %; LYMPH ABS # 2.97 K/uL (1.2-3.4); MEAN CELL VOLUME 91.6 fL (80-100); MEAN CORPUSCULAR HEMOGLOBIN 30.5 pg (25-34); MEAN CORPUSCULAR HGB CONC 33.2 g/dl (32-36); MEAN PLATELET VOLUME 9.3 fL (7.4-10.4); MONO % 7.4 %; MONO ABS # 0.47 K/uL (0.11-0.59); NEUT % 44.1 %; NEUT ABS # 2.81 K/uL (1.4-6.5); PLATELET COUNT 219 K/uL (130-400); RED CELL DISTRIBUTION WIDTH CV 12.8 % (11.5-14.5); RED CELL DISTRIBUTION WIDTH SD 43.2 fL (36.4-46.3); WHITE BLOOD COUNT 6.37 K/uL (4.8-10.8)
[2018-05-28 07:02] LABS: BLOOD UREA NITROGEN 13 mg/dl (7-18); CALCIUM 8.5 mg/dl (8.5-10.1); CARBON DIOXIDE 28 mmol/L (21-32); CREATININE 0.88 mg/dl (0.60-1.20); GLUCOSE 87 mg/dl (70-99); POTASSIUM 3.4 mmol/L (3.5-5.1); SODIUM 143 mmol/L (136-145)
[2018-05-28 07:26] LABS: HEMOGLOBIN A1C 5.5 % (4.5-5.6)
[2018-05-28] MEDS ORDERED: MEMANTINE 10 MG TAB PO SCH (07:30)
--- NOTE | 2018-05-28 07:52 | HISTORY & PHYSICAL EXAMINATION ---
DATE OF ADMISSION: 05/28/2018 PRIMARY CARE PHYSICIAN: [place]. CHIEF COMPLAINT: Fall as per records, syncope as per son. HISTORY OF PRESENT ILLNESS: History obtained from patient, son, and records. Patient is a poor historian secondary to dementia. Medical history is significant for dementia as per records, ostearthritis. Recent confinement last in 02/2016 for intractable headache. Patient recently placed at the [facility] because of increasing functional debility and to be clsoe to her . She was found at the nursing facility today of unwitnessed fall. Patient not sure if she passed out. Staff reported head tilted back and shaking but no nic tonic clonic seizures or incontinence, Denies chest pain or shortness of breath. Patient denies bladder symptoms. Appetite "so-so" at the senior care home as per son. At the ER. patient received Ceftriaxone for possible UTI. MEDICAL HISTORY: As above. SURGICAL HISTORY: Cataract surgery. MEDICATIONS: Home medications include aspirin, citalopram, donepezil, amantadine, multivitamins, probiotic, Tylenol, diclofenac, magnesium hydroxide, Artificial Tears. ALLERGIES: No drug allergies. FAMILY HISTORY: Could not be obtained. PERSONAL/SOCIAL HISTORY: Nonsmoker. No chronic EtOH intake. detention resident. REVIEW OF SYSTEMS: Could not be reliably obtained. PHYSICAL EXAMINATION: VITAL SIGNS: Blood pressure noted to be 113/51, pulse rate 57, respiratory rate 16, temperature 36.6, saturations 97% on room air. Orthostatic vitals at the ER were negative. GENERAL: Pleasant, demented, hyposthenic, in no respiratory distress. SKIN: Normal color, warm. HEENT: [place] palpebral conjunctivae. No ptosis. Dry oral mucosa. NECK: Supple, nontender. CHEST: Decreased breath sounds. No tenderness. HEART: Bradycardic. No murmur. ABDOMEN: Soft and nontender. EXTREMITIES: No edema. Nontender. No gross deformities. NEUROLOGIC: Coherent, demented. No facial asymmetry. LABORATORY DATA: Hemoglobin was noted to be 13.1, hematocrit 40, white cell count is 9.64, platelets noted to be 269. Sodium noted to be 140, potassium 3.7, chloride 103, CO2 of 28, BUN 30, creatinine 1.4, glucose 143. Troponin 0.015. UA WBC esterase positive. IMAGING: CT head: No acute pathology. Cervical spine CT: No acute cervical spine fracture or subluxation. EKG: As per my interpretation, rate 65, NSR, Q-waves in inferior leads. ASSESSMENT: 1. Unwitnessed fall possible syncopal event rule out cardiac pathology (arrhythmia, obstructive pathology), seizures 2. Dementia Mentation at baseline. 3. Acute renal failure 4. Pyuria, possible urinary tract infection, no sepsis. 5. Hyperglycemia ro DM 6. Malnutrition (low BMI) PLAN: Observation PCU 2D echo, EEG for syncope workup. Monitor creatinine response to IVF ff utrine CS, IV Ceftriaxone Check hemoglobin A1c. Nutrition consult RE low BMI DVT prophylaxis: Heparin subcu. Full code as per son, Mr. Aurelio Harris. (Contact number [phone]) [place]
[2018-05-28] MEDS ORDERED: PNEUMOCOCCAL ADMINISTRATION CHARGE ONE (08:00)
[2018-05-28] MEDS ORDERED: PNEUMOCOCCAL POLYSACCHARIDES 25 MCG/0.5 ML VIAL/SYR IM. ONE (08:00)
[2018-05-28 08:06] VITALS: BP 139/74; PULSE 54; TEMP 36.9; O2SAT 95
[2018-05-28] MEDS ORDERED: CEROVITE ADV FORMULA TAB PO SCH (09:00)
[2018-05-28] MEDS ORDERED: DONEPEZIL HCL 10 MG TAB PO SCH (09:00)
[2018-05-28] MEDS ORDERED: LACTOBACILLUS ACIDOPHILUS (FLORANEX) TAB PO SCH (09:00)
[2018-05-28] MEDS ORDERED: ASPIRIN 81 MG ECTAB PO SCH (09:00)
[2018-05-28] MEDS ORDERED: CITALOPRAM 20 MG TAB PO SCH (09:00)
--- NOTE | 2018-05-28 10:37 | ECHOCARDIOGRAM REPORT ---
*NOTICE TO RECEIVING REPUBLICAN AGENCY This information is strictly Confidential and protected under [place] law. [place] law prohibits you from making any further disclosure of this information unless further disclosure is expressly permitted by the written consent of the person to whom it pertains or is authorized by law. A general authorization for the release of medical or other information is not sufficient for this purpose. Hospital accepts no responsibility if the information is made available to any other person, INCLUDING THE PATIENT. Interpretation Summary * Name: KELLY SMITH Study Date: 05/28/2018 06:58 AM BP: 153/73 mmHg * Patient Location: C.2T\S\S238\S\2 HR: 57 * : 1935 (M/d/yyy) Gender: Female Height: 64 in * Age: 83 yrs Ethnicity: CA Weight: 104 lb * Ordering Physician: Gavin Arthur * Performed By: Toshia Lincoln RDCS * * Reason For Study: SYNCOPE * BSA: 1.5 m2 * -- Conclusions -- * Normal LV chamber size with mild concentric LVH, sigmoid appearing septum. * Hyperdynamic LV systolic function, EF >70%. * No segmental left ventricular wall motion abnormalities are noted. * Grade I diastolic dysfunction. * Aortic valve sclerosis mild, without significant aortic valvular stenosis. Procedure Details * A complete two-dimensional transthoracic echocardiogram was performed (2D, M-mode, Doppler and color flow Doppler). Left Ventricle * The left ventricle is normal in size. * There is mild concentric left ventricular hypertrophy. * The basal septum is thickened and angulated consistent with sigmoid septum. * Ejection Fraction = >70 %. * The left ventricle is hyperdynamic. * No segmental left ventricular wall motion abnormalities are noted. * The left ventricular wall motion is normal. Right Ventricle * The right ventricular cavity size is normal (basal dimension <4.2 cm in right ventricular apical 4-chamber view). * The right ventricular systolic function is normal as assessed by tricuspid annular plane systolic excursion (TAPSE) (normal >1.5 cm). Atria * The left atrial size is normal. * Right atrial size is normal. * No ASD detected; PFO is not assessed. Mitral Valve * The mitral valve leaflets appear thickened, but open well. * There is no mitral valve stenosis. * There is no mitral regurgitation noted. Tricuspid Valve * The tricuspid valve is normal in structure and function. Aortic Valve * The aortic valve is trileaflet. * Aortic valve sclerosis mild, without significant aortic valvular stenosis. * There is no significant aortic regurgitation. Pulmonic Valve * The pulmonary valve is not well seen, but the Doppler examination is normal without significant regurgitation or stenosis. Great Vessels * The aortic root is normal size. Pericardium/Pleural * There is no pericardial effusion. Left Ventricular Diastolic Function * Grade I diastolic dysfunction, (abnormal relaxation pattern). MMode 2D Measurements and Calculations IVSd 1.9 cm IVSs 2.3 cm LVIDd 2.7 cm LVIDs 1.5 cm LVPWd 1.1 cm LVPWs 1.7 cm IVS/LVPW 1.8 FS 43.6 % EDV(Teich) 27.0 ml ESV(Teich) 6.3 ml EF(Teich) 76.6 % EDV(cubed) 19.7 ml ESV(cubed) 3.5 ml EF(cubed) 82.0 % % IVS thick 18.4 % % LVPW thick 58.8 % LV mass(C)d 136.1 grams LV mass(C)dI 91.8 grams/m\S\2 LV mass(C)s 133.9 grams LV mass(C)sI 90.4 grams/m\S\2 SV(Teich) 20.7 ml SI(Teich) 14.0 ml/m\S\2 SV(cubed) 16.1 ml SI(cubed) 10.9 ml/m\S\2 ACS 1.0 cm LA dimension 2.2 cm LVOT diam 1.4 cm LVOT area 1.5 cm\S\2 LVAd ap4 23.4 cm\S\2 LVLd ap4 6.8 cm EDV(MOD-sp4) 66.3 ml EDV(sp4-el) 67.8 ml LVAs ap4 9.7 cm\S\2 LVLs ap4 5.1 cm ESV(MOD-sp4) 15.0 ml ESV(sp4-el) 15.5 ml EF(MOD-sp4) 77.4 % EF(sp4-el) 77.2 % LVAd ap2 21.1 cm\S\2 LVLd ap2 6.8 cm EDV(MOD-sp2) 52.9 ml EDV(sp2-el) 55.9 ml LVAs ap2 9.0 cm\S\2 LVLs ap2 5.7 cm ESV(MOD-sp2) 12.7 ml ESV(sp2-el) 12.1 ml EF(MOD-sp2) 76.0 % EF(sp2-el) 78.3 % LVLd %diff -0.97 % EDV(MOD-bp) 59.0 ml LVLs %diff 10.2 % ESV(MOD-bp) 14.1 ml EF(MOD-bp) 76.1 % SV(MOD-sp4) 51.3 ml SI(MOD-sp4) 34.7 ml/m\S\2 SV(MOD-sp2) 40.2 ml SI(MOD-sp2) 27.2 ml/m\S\2 SV(MOD-bp) 44.9 ml SI(MOD-bp) 30.3 ml/m\S\2 SV(sp4-el) 52.3 ml SI(sp4-el) 35.3 ml/m\S\2 SV(sp2-el) 43.8 ml SI(sp2-el) 29.6 ml/m\S\2 Doppler Measurements and Calculations MV E max adrian 85.2 cm/sec MV A max adrian 103.0 cm/sec MV E/A 0.83 MV dec time 0.21 sec Ao V2 max 120.9 cm/sec Ao max PG 5.8 mmHg Ao max PG (full) 2.2 mmHg NICK(V,A) 1.2 cm\S\2 NICK(V,D) 1.2 cm\S\2 LV V1 max PG 3.6 mmHg LV V1 max 95.4 cm/sec PA V2 max 67.4 cm/sec PA max PG 1.8 mmHg PI end-d adrian 114.7 cm/sec TR max adrian 317.8 cm/sec
--- NOTE | 2018-05-28 11:15 | EEG Procedure Note ---
EEG Procedure Note Date of Service May 28, 2018. Start / End Times Start Time: 8:36 AM End Time: 8:56 AM Referring Physician Gavin Arthur History This is a 83-year-old female with syncope. EEG for further evaluation of possible seizure etiology. Home Medication List Scheduled Aspirin (Aspirin Ec), 81 MG PO QAM Citalopram (Citalopram Hydrobromide), 20 MG PO DAILY Donepezil Hydrochloride (Aricept), 10 MG PO DAILY Memantine HCl (Memantine HCl), 10 MG PO BIDM Multiple Vitamins W/ Minerals (Ocuvite), 1 TAB PO DAILY Probiotic Product (Probiotic Acidophilus), 1 CAP PO DAILY Scheduled PRN Acetaminophen (Tylenol), 650 MG PO Q8 PRN for Pain or Fever Artificial Tear Solution (Artificial Tears), 1 DROPS OPB Q4 PRN for DRYNESS Diclofenac Sodium (Topical) (Diclofenac Sodium), 1 APPLN TOP BID PRN for Pain Magnesium Hydroxide (Milk Of Magnesia), 30 ML PO DAILY PRN for Constipation Inpatient Medication List Current Inpatient Medications Medications (Trade) Dose Ordered Sig/Saqib Route Start Time Stop Time Status Last Admin Dose Admin Heparin Sodium (Porcine) (Heparin Sq 5000 Unit/0.5ml) 5,000 unit Q8 SQ 05/28/18 06:00 06/27/18 05:59 05/28/18 05:20 5,000 UNIT Acetaminophen (Tylenol Tab) 650 mg Q4H PRN PO 05/28/18 01:00 06/27/18 00:59 Nitroglycerin (Nitrostat Tab) 0.4 mg UD PRN SL 05/28/18 01:00 06/27/18 00:59 Prochlorperazine Edisylate 5 mg/ Syringe 5 ml @ 5 mls/min Q6H PRN IV 05/28/18 01:00 06/27/18 00:59 Aspirin (Ecotrin Tab) 81 mg QAM PO 05/28/18 09:00 06/27/18 08:59 05/28/18 07:23 81 MG Citalopram Hydrobromide (celeXA TAB) 20 mg DAILY PO 05/28/18 09:00 06/27/18 08:59 05/28/18 07:23 20 MG Donepezil HCl (Aricept Tab) 10 mg DAILY PO 05/28/18 09:00 06/27/18 08:59 05/28/18 07:23 10 MG Memantine (Namenda Tab) 10 mg BIDM PO 05/28/18 07:30 06/27/18 07:59 05/28/18 07:23 10 MG Multivitamins/ Minerals (Multivitamin W/ Minerals Tab) 1 tab DAILY PO 05/28/18 09:00 06/27/18 08:59 05/28/18 07:24 1 TAB Lactobacillus Acidophilus (Floranex Tab) 1 tab DAILY PO 05/28/18 09:00 06/27/18 08:59 05/28/18 07:24 1 TAB Lactated Ringer's 1,000 ml @ 75 mls/hr [id number] ONCE IV 05/28/18 01:00 05/28/18 14:19 05/28/18 01:52 75 MLS/HR Ceftriaxone Sodium 1 gm/ Dextrose 50 ml @ 100 mls/hr Q24H IV 05/28/18 22:00 06/02/18 21:59 Miscellaneous (Iv Fluids Completed) 1 ea PRN PRN N/A 05/28/18 01:45 05/28/19 01:44 Description This is a 21 electrode EEG with a single channel dedicated to limited EKG. The electrodes were placed in accordance with the International 10-20 system. At the start of the recording the patient was in an awake state but reportedly confused. Background was well organized and composed of symmetric mixed alpha and beta frequencies with some excess theta frequencies. There was a symmetric well-formed moderate amplitude 6-7 Hz posterior dominant rhythm that was reactive to eye opening and closure. Hyperventilation was not done. Intermittent photic stimulation at various frequencies produced no abnormalities. There was no state changes of sleep transients. Interpretation This is an abnormal routine EEG secondary to mild background slowing. There was no electrographic seizures or epileptiform discharges. Clinical Correlation This EEG indicates mild encephalopathy of nonspecific etiology.
[2018-05-28 11:23] VITALS: BP 140/65; PULSE 78; TEMP 36.6; O2SAT 96
--- NOTE | 2018-05-28 14:20 | Discharge Instructions ---
Discharge Instructions Date of Service May 28, 2018. Admission Reason for Admission: Syncope And Collapse Discharge Discharge Diagnosis / Problem: SYNCOPE /DEMENTIA /UTI Discharge Goals Goal(s): Decrease discomfort, Improve function, Increase independence, Improve disease control, Therapeutic intervention Activity Recommendations Activity Level: Assistance Required . Additional Information Patient informed of condition: Yes Advance Directives: No DNR: No Level of Care: Other (QUALITY FACILITATOR CARE ) Communicable Disease: No Prognosis: Stable Meza Catheter: No Instructions / Follow-Up Instructions / Follow-Up FOLLOW UP WITH PHYSICIAN AT [facility] Diet Patient's current hospital diet: AHA Diet (Heart Healthy) Discharge Diet Recommended Diet: AHA Diet (Heart Healthy) Pending Studies Studies pending at discharge: no Laboratory Results Hemoglobin A1c Test 05/28/18 06:24 Range/Units Estimated Average Glucose 111 mg/dl Hemoglobin A1c 5.5 4.5-5.6 % Medical Emergencies . Who to Call and When: Medical Emergencies: If at any time you feel your situation is an emergency, please call 911 immediately. . Non-Emergent Contact Non-Emergency issues call your: Primary Care Provider . . "Provider Documentation" section prepared by Emily Kelsey. . Core Measure Problem Core Measures: None
[2018-05-28] MEDS ORDERED: CIPROFLOXACIN 250 MG TAB PO ONE (14:23)
[2018-05-28] MEDS ORDERED: CIPR250T3 PO (14:26)
--- NOTE | 2018-05-28 14:29 | Discharge Summary ---
Discharge Summary Date of Service May 28, 2018. Discharge Summary Admission Date: May 28, 2018 at 00:34 Discharge Date: May 28, 2018 Discharge Disposition: assisted facility Principal Diagnosis: SYNCOPE /DEMENTIA /UTI Procedures: ECHO: Normal LV chamber size with mild concentric LVH, sigmoid appearing septum. Hyperdynamic LV systolic function, EF >70%. No segmental left ventricular wall motion abnormalities are noted. Grade I diastolic dysfunction. Aortic valve sclerosis mild, without significant aortic valvular stenosis. EEG: Interpretation This is an abnormal routine EEG secondary to mild background slowing. There was no electrographic seizures or epileptiform discharges. Clinical Correlation This EEG indicates mild encephalopathy of nonspecific etiology. CT HEAD WITHOUT CONTRAST : IMPRESSION: 1. No acute intracranial findings. 2. No calvarial fracture. CT OF CERVICAL SPINE : IMPRESSION: No acute cervical spine fracture or subluxation. Medication Reconciliation New Medications: Ciprofloxacin (Cipro) 250 Mg Tab 250 MG PO Q12H for 5 Days, #10 TAB Continued Medications: Acetaminophen (Tylenol) 325 Mg Tab 650 MG PO Q8 PRN for Pain or Fever, TAB NTE 3GM APAP/24HRS Artificial Tear Solution (Artificial Tears) 1 Elvira Elvira 1 DROPS OPB Q4 PRN for DRYNESS, ML Aspirin (Aspirin Ec) 81 Mg Tab 81 MG PO QAM Citalopram (Citalopram Hydrobromide) 20 Mg Tab 20 MG PO DAILY Diclofenac Sodium (Topical) (Diclofenac Sodium) 1 % Gel 1 APPLN TOP BID PRN for Pain Donepezil Hydrochloride (Aricept) 10 Mg Tab 10 MG PO DAILY, TAB Magnesium Hydroxide (Milk Of Magnesia) 30 Ml Susp 30 ML PO DAILY PRN for Constipation, ML GIVE, NEEDED, FOR NO BOWEL MOVEMENT IN 3 DAYS. Memantine HCl (Memantine HCl) 10 Mg Tab 10 MG PO BIDM Multiple Vitamins W/ Minerals (Ocuvite) 1 Tab Tab 1 TAB PO DAILY Probiotic Product (Probiotic Acidophilus) 1 Cap Cap 1 CAP PO DAILY Admission Information HPI (per Admitting provider): DATE OF ADMISSION: 05/28/2018 PRIMARY CARE PHYSICIAN: [place]. CHIEF COMPLAINT: Fall as per records, syncope as per son. HISTORY OF PRESENT ILLNESS: History obtained from patient, son, and records. Patient is a poor historian secondary to dementia. Medical history is significant for dementia as per records, recent arthritis. Recent confinement last in 02/2016 for intractable headache. Patient recently moved to [facility] because of increasing functional debility of her . She was found at the nursing facility today of unwitnessed fall. Patient is not sure if she passed out. Denies chest pain or shortness of breath. No seizures. Staff reported head tilted back and shaking but no nic tonic clonic seizures or incontinence, denies bladder dysfunction at the ER. Patient received ceftriaxone for possible UTI. Appetite not too good at home, so-so at home as per son. PAST MEDICAL HISTORY: As above. PAST SURGICAL HISTORY: Cataract surgery. MEDICATIONS: Home medications include aspirin, citalopram, donepezil, amantadine, multivitamins, probiotic, Tylenol, diclofenac, magnesium hydroxide, Artificial Tears. ALLERGIES: No drug allergies. FAMILY HISTORY: Could not be obtained. PERSONAL/SOCIAL HISTORY: Nonsmoker. No chronic intake. She is currently at [facility]. Physical Exam (per Admitting): PHYSICAL EXAMINATION: VITAL SIGNS: Blood pressure noted to be 113/51, pulse rate 57, respiratory rate 16, temperature 36.6, saturations 97% on room air. Orthostatic vitals at the ER were negative. GENERAL: Pleasant, demented, hyposthenic, in no respiratory distress. SKIN: Normal color, warm. HEENT: [place] palpebral conjunctivae. No ptosis. Dry oral mucosa. NECK: Supple, nontender. CHEST: Decreased breath sounds. No tenderness. HEART: Bradycardic. No murmur. ABDOMEN: Soft and nontender. EXTREMITIES: No edema. Nontender. No gross deformities. NEUROLOGIC: Coherent, demented. No facial asymmetry. Hospital Course pt walking on the hallway wants to be go home baseline dementia , no agitation no fever or chills no dizzy spell or syncope no arrhythmia noted in tele stable to be discharged back to [facility] PHYSICAL EXAM : Gen: no sign of distress , pleasantly demented HEENT : Sclera nonicteric, pupils bilateral equal reactive to light Heart: Regular S1-S2 Lungs: To auscultate no wheeze or rales Abdomen: Soft nontender, active bowel sounds Extremity: No lower extremity edema, no rash or deformity Neuro: No focal neurological deficit, baseline dementia Last 8 Hrs Date Time Temp Pulse Resp B/P (MAP) Pulse Ox O2 Delivery O2 Flow Rate FiO2 05/28/18 11:23 36.6 78 20 140/65 (90) 96 Room Air 05/28/18 08:06 36.9 54 20 139/74 (95) 95 Room Air 05/28/18 08:00 Room Air ASSESSMENT AND PLAN : CONFUSION /METABOLIC ENCEPHALOPATHY: Baseline dementia, Worsening of confusion possible secondary to urinary tract infection, dehydration CT head without contrast shows no evidence of CVA CT of cervical spine shows no evidence of fracture Mental status improved strength baseline SYNCOPE : Possible secondary to dehydration, CT head without contrast shows no evidence of any acute intracranial event Echo shows normal LV, EF more than 70% no wall motion abnormality UTI Urine culture growing gram negative bacilli Started on ciprofloxacin Complete total 5 days course FULL CODE DVT PROPHYLAXIS : SUB Q HEPARIN DISPOSITION : stable to be discharged to [facility] today Discharge Instructions Discharge Instructions Date of Service May 28, 2018. Admission Reason for Admission: Syncope And Collapse Discharge Discharge Diagnosis / Problem: SYNCOPE /DEMENTIA /UTI Discharge Goals Goal(s): Decrease discomfort, Improve function, Increase independence, Improve disease control, Therapeutic intervention Activity Recommendations Activity Level: Assistance Required . Additional Information Patient informed of condition: Yes Advance Directives: No DNR: No Level of Care: Other ([employer] CARE ) Communicable Disease: No Prognosis: Stable Meza Catheter: No Instructions / Follow-Up Instructions / Follow-Up FOLLOW UP WITH PHYSICIAN AT [facility] Current Hospital Diet Patient's current hospital diet: AHA Diet (Heart Healthy) Discharge Diet Recommended Diet: AHA Diet (Heart Healthy) Pending Studies Studies pending at discharge: no Laboratory Results Hemoglobin A1c Test 05/28/18 06:24 Range/Units Estimated Average Glucose 111 mg/dl Hemoglobin A1c 5.5 4.5-5.6 % Medical Emergencies . Who to Call and When: Medical Emergencies: If at any time you feel your situation is an emergency, please call 911 immediately. . Non-Emergent Contact Non-Emergency issues call your: Primary Care Provider . . "Provider Documentation" section prepared by Emily Kelsey. . Core Measure Problem Core Measures: None
[2018-05-28 14:34] VITALS: BP 140/65; PULSE 78; TEMP 36.6; O2SAT 96
[2018-05-28] MEDS ORDERED: CIPROFLOXACIN 250 MG TAB PO SCH (22:00)
[2018-05-28] MEDS ORDERED: CEFTRIAXONE SOD INJ 1 GM in DEXTROSE 5% ADD-VANTAGE 50ML 50 ML IV SCH (22:00)
== END 2018-05-28 15:46 ==
LOC: EDBD 18:39 → C.EDB 18:40 → C.2T 05-28 00:34 → ENRESERV 05-28 00:51
PROVIDERS: ADMIT Internal Medicine; ATTEND Internal Medicine
DX: R41.0 Disorientation, unspecified (principal); G93.41 Metabolic encephalopathy; N39.0 Urinary tract infection, site not specified; R55 Syncope and collapse; F03.90 Unspecified dementia, unspecified severity, without behavioral disturbance, psychotic disturbance, mood disturbance, and anxiety; R73.9 Hyperglycemia, unspecified; N17.9 Acute kidney failure, unspecified; E46 Unspecified protein-calorie malnutrition; Z79.82 Long term (current) use of aspirin

== ENCOUNTER 2020-07-08 19:59 | Inpatient (IN) ==
[2020-07-08] MEDS ORDERED: ALBUT/IPRATROP 3MG/0.5MG NEB 3 ML VIAL NEB ONE (20:18)
[2020-07-08] MEDS ORDERED: SODIUM CHLORIDE 0.9% 500 ML IV ONE (20:23)
[2020-07-08 20:43] LABS: Basophils # (auto) 0.04 K/uL (0-0.2); Basophils % (auto) 0.2 %; Eosinophils # (auto) 0.01 K/uL (0-0.5); Eosinophils % (auto) 0.1 %; Hematocrit (blood only) 40.3 % (37-47); Hemoglobin 12.4 g/dL (12.0-16.0); Immature Granulocytes # (auto) 0.09 K/uL (0.00-0.02); Immature Granulocytes % (auto) 0.5 %; Lymphocytes # (auto) 1.53 K/uL (1.2-3.4); Lymphocytes % (auto) 8.4 %; Mean Corpuscular Hemoglobin 29.7 pg (25-34); Mean Corpuscular Hgb Conc 30.8 g/dL (32-36); Mean Corpuscular Volume 96.4 fL (80-100); Mean Platelet Volume 9.9 fL (7.4-10.4); Monocytes % (auto) 3.9 %; Neutrophils # (auto) 15.77 K/uL (1.4-6.5); Neutrophils % (auto) 86.9 %; Platelet Count 299 K/uL (130-400); RDW Coefficient of Variation 14.1 % (11.5-14.5); RDW Standard Deviation 49.9 fL (36.4-46.3); Red Blood Count 4.18 M/uL (4.2-5.4); White Blood Count 18.14 K/uL (4.8-10.8)
[2020-07-08] MEDS ORDERED: SODIUM CHLORIDE 0.9% 1000ML 500 ML IV ONE ×2 (20:46→21:22)
[2020-07-08 20:53] LABS: INR 1.1 (0.9-1.1); Prothrombin Time 11.1 Seconds (9.0-12.0)
[2020-07-08 20:58] LABS: iSTAT Creatinine 1.6 mg/dl (0.6-1.3); iSTAT Hemoglobin 11.9 g/dl (12.0-16.0); iSTAT Ionized Calcium 1.23 mmol/l (1.12-1.32); iSTAT Potassium 3.5 mmol/L (3.3-5.0)
[2020-07-08 21:03] LABS: Partial Thromboplastin Ratio 1.2; Partial Thromboplastin Time 32.9 Seconds (21.0-31.0)
[2020-07-08 21:09] LABS: Albumin Globulin Ratio 0.8 (0.9-2); BUN Creatinine Ratio 22.4 (10-20); Bilirubin,Total 0.3 mg/dl (0.2-1); Calcium 9.5 mg/dl (8.5-10.1); Creatine Kinase MB 1.7 ng/ml (0.5-3.6); Creatinine Clr Calc Pharmacy 17.8 ml/min; Est GFR (African American) 33.2; Est GFR (Non-African American) 28.7; Globulin 3.9 gm/dl (2.5-4.0); Magnesium 2.5 mg/dl (1.8-2.4); Potassium 3.5 mmol/L (3.5-5.1); Total Protein 6.9 gm/dl (6.4-8.2); Troponin I 0.056 ng/ml (0-0.045)
[2020-07-08] MEDS ORDERED: PIPERACILL/TAZOBAC CONSULT ACTIVE PRN (21:22)
[2020-07-08] MEDS ORDERED: VANCOMYCIN CONSULT ACTIVE PRN (21:22)
[2020-07-08] MEDS ORDERED: VANCOMYCIN HCL 1,000 MG in SODIUM CHLORIDE 0.9% 500 ML IV ONE (21:22)
[2020-07-08] MEDS ORDERED: PIPERACILLIN/TAZOBACTAM 4.5 GM/120 ML BAG IV ONE (21:22)
[2020-07-08] MEDS ORDERED: levoFLOXacin/D5W 500 MG/100 ML BAG IV STA (21:22)
[2020-07-08] MEDS ORDERED: OPTIRAY 320 125ml IV ONE (21:56)
[2020-07-08 22:38] LABS: Appearance Urine Clear (Clear); Bacteria Urine Automated Negative (Negative); Bilirubin Urine Negative (Negative); Blood Urine Negative (Negative); Color Urine Yellow; Epithelial Cell Urine Auto >30 /lpf (0-5); Glucose Urine UA Trace (Negative); Ketones Urine 1+ (Negative); Leukocyte Esterase Urine Trace (Negative); Nitrite Urine Negative (Negative); Protein Urine Trace (Negative); Specific Gravity Urine > 1.045 (1.000-1.030); Urobilinogen Urine Negative (Negative)
[2020-07-08 22:51] LABS: Renal Epithelial Cells Urine 0-5 /lpf (0-5)
--- NOTE | 2020-07-08 23:36 | Emergency Department Note ---
History of Present Illness General Chief complaint: Unresponsive Stated complaint: UNRESPONESIVE, HYPOXIA Time Seen by Provider: 07/08/20 20:16 Source: patient, family (3 sons), EMS, RN notes reviewed and old records reviewed Mode of arrival: EMS Limitations: altered mental status History of Present Illness Provider complaint: Obtunded Onset (ago): hour(s) 3 Treatments prior to arrival: other (Oxygen) This is an 85-year-old female who arrives from her intermediate obtunded. Per intermediate report the patient was increasingly weak over the past several days. She is a DNR DNI however family would like the patient to be evaluated upon arrival to the emergency department. Upon arrival the patient is on 15 L of oxygen. She withdraws from painful stimuli. Home Medications Home Medications Medication Instructions Recorded Confirmed Type acetaminophen 650 mg PO Q6 PRN 07/08/20 07/08/20 History acetaminophen [Tylenol] 650 mg PO BID 07/08/20 07/08/20 History aspirin [Aspir-81] 81 mg PO DAILY 07/08/20 07/08/20 History bisacodyl [Dulcolax (bisacodyl)] 10 mg TN Q6 PRN 07/08/20 07/08/20 History cholecalciferol (vitamin D3) 4,000 unit PO DAILY 07/08/20 07/08/20 History [Vitamin D3] citalopram [Celexa] 30 mg PO DAILY 07/08/20 07/08/20 History lactobacillus combination no.4 0 mmu cells PO DAILY 07/08/20 07/08/20 History [Probiotic] lanolin [id number]-l.pet-[id number] 1 applic TOPICAL AMHS 07/08/20 07/08/20 History [Eucerin] magnesium hydroxide [Milk of 30 ml PO UD PRN 07/08/20 07/08/20 History Magnesia] megestrol 400 mg PO DAILY 07/08/20 07/08/20 History memantine 10 mg PO BID 07/08/20 07/08/20 History multivitamin 1 tab PO DAILY 07/08/20 07/08/20 History polyvinyl alcohol [Artificial 1 drp OPB BID PRN 07/08/20 07/08/20 History Tears (polyvin alc)] risperidone 2 mg PO BID 07/08/20 07/08/20 History sennosides-docusate sodium [Senna 1 tab-cap PO HS 07/08/20 07/08/20 History Plus] sulfamethoxazole-trimethoprim 1 tab PO BID 07/08/20 07/08/20 History [Bactrim DS] vitamin B complex-folic acid 0 tab PO DAILY 07/08/20 07/08/20 History Allergies Allergy/AdvReac Type Severity Reaction Status Date / Time No Known Allergies Allergy Verified 07/08/20 23:05 Past Med/Surg History Medical History Dementia DJD (degenerative joint disease) of cervical spine Lumbago Rheumatoid arthritis Thyroid disease Surgical History History of cataract surgery Social History Smoking Status: Never smoker Feels Safe at Home: Declines to Answer Review of Systems Unobtainable due to reduced consciousness Physical Exam Vital Signs Vital Signs - 24 hr 07/08/20 20:11 07/08/20 20:15 07/08/20 20:33 Temperature 36.9 C Temperature Source Oral Pulse Rate 95 H 99 H Pulse Rate [Apical] 99 H Pulse Rate from SpO2 Sensor Pulse Rhythm Regular Respiratory Rate 18 22 Respiratory Effort / Characteristics Non-Labored Spontaneous Respiratory Depth Shallow Shallow Respiratory Pattern Irregular Regular Blood Pressure 101/56 L Blood Pressure Mean 71 Pulse Oximetry 85 L 85 L 99 Oxygen Delivery Method Room Air Room Air BiPAP Oxygen Flow Rate Fraction of Inspired Oxygen 40 Sepsis Recent Fever Within 48 Hours No Sepsis New/Unexplained Change in Mental Status No Sepsis Action Taken by Nursing No Action Required Oxygen Flow Rate - Titration 15 Fraction of Inspired Oxygen - Titration 100 Pulse Oximetry Post Tiitration 91 07/08/20 20:43 07/08/20 20:45 07/08/20 20:49 Temperature Temperature Source Pulse Rate 103 H 103 H Pulse Rate [Apical] Pulse Rate from SpO2 Sensor 103 H 103 H Pulse Rhythm Respiratory Rate 22 23 Respiratory Effort / Characteristics Spontaneous Respiratory Depth Respiratory Pattern Blood Pressure 113/62 Blood Pressure Mean 89 Pulse Oximetry 100 100 100 Oxygen Delivery Method BiPAP Oxygen Flow Rate Fraction of Inspired Oxygen 30 Sepsis Recent Fever Within 48 Hours Sepsis New/Unexplained Change in Mental Status Sepsis Action Taken by Nursing Oxygen Flow Rate - Titration Fraction of Inspired Oxygen - Titration Pulse Oximetry Post Tiitration 07/08/20 20:52 07/08/20 20:56 07/08/20 21:00 Temperature Temperature Source Pulse Rate 100 H 110 H Pulse Rate [Apical] Pulse Rate from SpO2 Sensor 109 H 110 H Pulse Rhythm Respiratory Rate 22 22 Respiratory Effort / Characteristics Spontaneous Respiratory Depth Respiratory Pattern Blood Pressure 113/62 Blood Pressure Mean 89 Pulse Oximetry 100 100 100 Oxygen Delivery Method BiPAP Oxygen Flow Rate Fraction of Inspired Oxygen 30 Sepsis Recent Fever Within 48 Hours Sepsis New/Unexplained Change in Mental Status Sepsis Action Taken by Nursing Oxygen Flow Rate - Titration Fraction of Inspired Oxygen - Titration Pulse Oximetry Post Tiitration 07/08/20 21:01 07/08/20 21:15 07/08/20 21:30 Temperature Temperature Source Pulse Rate 98 H 120 H 114 H Pulse Rate [Apical] Pulse Rate from SpO2 Sensor 111 H 116 H 115 H Pulse Rhythm Respiratory Rate 22 21 20 Respiratory Effort / Characteristics Respiratory Depth Respiratory Pattern Blood Pressure 101/53 L Blood Pressure Mean 67 Pulse Oximetry 100 96 95 Oxygen Delivery Method Oxygen Flow Rate Fraction of Inspired Oxygen Sepsis Recent Fever Within 48 Hours Sepsis New/Unexplained Change in Mental Status Sepsis Action Taken by Nursing Oxygen Flow Rate - Titration Fraction of Inspired Oxygen - Titration Pulse Oximetry Post Tiitration 07/08/20 21:31 07/08/20 21:36 07/08/20 21:40 Temperature Temperature Source Pulse Rate 112 H 101 H Pulse Rate [Apical] Pulse Rate from SpO2 Sensor 114 H 110 H Pulse Rhythm Respiratory Rate 18 20 19 Respiratory Effort / Characteristics Spontaneous Respiratory Depth Respiratory Pattern Blood Pressure 68/44 L 100/54 L Blood Pressure Mean 58 74 Pulse Oximetry 97 98 Oxygen Delivery Method Oxygen Flow Rate Fraction of Inspired Oxygen Sepsis Recent Fever Within 48 Hours Sepsis New/Unexplained Change in Mental Status Sepsis Action Taken by Nursing Oxygen Flow Rate - Titration Fraction of Inspired Oxygen - Titration Pulse Oximetry Post Tiitration 07/08/20 22:00 07/08/20 22:03 07/08/20 22:05 Temperature Temperature Source Pulse Rate 121 H 108 H Pulse Rate [Apical] Pulse Rate from SpO2 Sensor 112 H 112 H Pulse Rhythm Respiratory Rate 19 19 Respiratory Effort / Characteristics Respiratory Depth Respiratory Pattern Blood Pressure 103/40 L Blood Pressure Mean 55 Pulse Oximetry 100 100 Oxygen Delivery Method [place] Oxygen Flow Rate Fraction of Inspired Oxygen Sepsis Recent Fever Within 48 Hours Sepsis New/Unexplained Change in Mental Status Sepsis Action Taken by Nursing Oxygen Flow Rate - Titration Fraction of Inspired Oxygen - Titration Pulse Oximetry Post Tiitration 07/08/20 22:15 07/08/20 22:29 Temperature Temperature Source Pulse Rate 118 H Pulse Rate [Apical] Pulse Rate from SpO2 Sensor 111 H Pulse Rhythm Respiratory Rate 19 Respiratory Effort / Characteristics Non-Labored Respiratory Depth Respiratory Pattern Blood Pressure 124/64 Blood Pressure Mean 83 Pulse Oximetry 100 100 Oxygen Delivery Method [place] Oxygen Flow Rate 6 Fraction of Inspired Oxygen Sepsis Recent Fever Within 48 Hours Sepsis New/Unexplained Change in Mental Status Sepsis Action Taken by Nursing Oxygen Flow Rate - Titration Fraction of Inspired Oxygen - Titration Pulse Oximetry Post Tiitration VITAL SIGNS - Vital signs and nursing notes were reviewed. GENERAL - 85-year-old female appearing cachectic who is obtunded, on 15 l NRB SKIN - Without rashes. HEAD - NC/AT. EYES - PERRL with EOMI bilaterally. Sclera anicteric. Palpebral conjunctiva pink and moist with no injection noted. EARS - No deformities of external structures noted on gross examination bilaterally. No pain elicited with palpation of the tragus bilaterally. External auditory canals without discharge or otorrhea. Tympanic membranes pearly spencer without retraction or bulging. No fluid or purulent material visualized behind the TM. Handle of malleus, umbo, cone of light, pars tensa/flaccid all easily visualized. NOSE - Midline and without cyanosis. No epistaxis or purulent drainage noted. Septum midline without deviation or septal hematoma noted. MOUTH/OROPHARYNX - Without perioral cyanosis. Buccal mucosa pink and moist and without leukoplakia. Tongue midline with equal elevation of palate bilaterally. No tonsillar hypertrophy, erythema, or exudates noted. dentition noted. NECK - Neck with FROM. Supple to palpation. lymphadenopathy noted. No nuchal rigidity. LUNGS - Chest wall symmetric without accessory muscle use, intercostals retractions, or central cyanosis. Normal vesicular breath sounds CTA B/L. No wheezes, rales, or rhonchi appreciated. CARDIAC - RRR with S1/S2. No murmur, rubs, or gallops appreciated. ABDOMEN - Abdominal contour without pulsations or visible masses. BS normoactive all four quadrants. No tenderness, palpable masses, hepatosplenomegaly, or ascites noted. EXTREMITIES - No clubbing or peripheral cyanosis. No pretibial edema present. +3/5 radial, posterior tibial, and dorsalis pedis pulses palpated throughout. +5/5 strength noted in UE/LE bilaterally. NEUROLOGIC - Cranial nerves II through XII grossly intact. Sensory intact to light touch throughout. Patellar reflexes +2/4. PSYCH - withdraws from painful stimuli Course Administered Medications Vancomycin HCl 1,000 mg/ (Sodium Chloride) 520 mls @ 200 mls/hr IV NOW ONE Stop: 07/08/20 23:57 Last Admin: 07/08/20 22:08 Dose: 200 mls/hr Documented by: [id number] Discontinued Medications Albuterol (Albut/Ipratrop 3mg/0.5mg Neb 3 Ml Vial) 12 ml NEB ONE ONE Stop: 07/08/20 20:19 Last Admin: 07/08/20 20:33 Dose: 12 ml Documented by: [id number] Sodium Chloride (Nss) 500 mls @ 999 mls/hr IV .Q31M ONE Stop: 07/08/20 20:53 Last Infusion: 07/08/20 22:00 Dose: 0 mls/hr Documented by: [id number] Admin: 07/08/20 21:26 Dose: 999 mls/hr Documented by: [id number] Sodium Chloride (Nss 1000ml) 500 mls @ 999 mls/hr IV .Q31M ONE Stop: 07/08/20 21:16 Last Infusion: 07/08/20 21:26 Dose: 0 mls/hr Documented by: [id number] Admin: 07/08/20 20:51 Dose: 999 mls/hr Documented by: [id number] Piperacillin Sod/Tazobactam Sod (Zosyn) 4.5 gm in 120 mls @ 240 mls/hr IV NOW ONE Stop: 07/08/20 21:51 Last Infusion: 07/08/20 23:00 Dose: 0 mls/hr Documented by: [id number] Admin: 07/08/20 22:06 Dose: 240 mls/hr Documented by: [id number] Levofloxacin/Dextrose (Levaquin/D5w) 500 mg in 100 mls @ 100 mls/hr IV NOW STA Stop: 07/08/20 22:21 Last Infusion: 07/08/20 23:00 Dose: 0 mls/hr Documented by: [id number] Admin: 07/08/20 22:06 Dose: 100 mls/hr Documented by: [id number] Sodium Chloride (Nss 1000ml) 500 mls @ 999 mls/hr IV .Q31M ONE Stop: 07/08/20 21:52 Last Infusion: 07/08/20 22:49 Dose: 0 mls/hr Documented by: [id number] Admin: 07/08/20 22:06 Dose: 999 mls/hr Documented by: [id number] Ioversol (Optiray 320 125ml) 100 ml IV ONCE ONE Stop: 07/08/20 21:57 Last Admin: 07/08/20 21:57 Dose: 100 ml Documented by: [id number] Impression & Plan Acute alteration in mental status, Pulmonary embolism, Respiratory failure, Acute hypernatremia, Pneumonia Critical Care Time I have personally spent greater than 90 minutes of critical care time in the dir ect management of this patient. This includes bedside care, interpretation of diagnostic studies, and testing, discussion with consultants, patient, and family members, and other required patient management activities. This 90 minutes is in excess of all separately billable procedures. Discharge Plan Visit Data Chief Complaint: Unresponsive Stated Complaint: UNRESPONESIVE, HYPOXIA ED Provider: Ranjeet Ross Discharge Problem: Acute alteration in mental status, Pulmonary embolism, Respiratory failure, Acute hypernatremia, Pneumonia Forms Stand Alone Forms: [facility] [employer] [facility] Prescriptions Prescriptions: No Action multivitamin Tablet 1 tab PO DAILY RF: 0 megestrol 400 mg/10 mL (40 mg/mL) suspension 400 mg PO DAILY RF: 0 acetaminophen 325 mg Tablet 650 mg PO Q6 PRN (Reason: Fever Or Pain) RF: 0 acetaminophen [Tylenol] 325 mg Tablet 650 mg PO BID RF: 0 polyvinyl alcohol [Artificial Tears (polyvin alc)] 1.4 % Drops 1 drp OPB BID PRN (Reason: .DRY EYES) RF: 0 sennosides-docusate sodium [Senna Plus] 8.6-50 mg Tablet 1 tab-cap PO HS RF: 0 sulfamethoxazole-trimethoprim [Bactrim DS] 800-160 mg tablet 1 tab PO BID RF: 0 aspirin [Aspir-81] 81 mg Tablet,Delayed Release (Dr/Ec) 81 mg PO DAILY RF: 0 risperidone 2 mg tablet 2 mg PO BID RF: 0 citalopram [Celexa] 20 mg tablet 30 mg PO DAILY RF: 0 magnesium hydroxide [Milk of Magnesia] 400 mg/5 mL Suspension 30 ml PO UD PRN (Reason: Abdominal Discomfort) RF: 0 bisacodyl [Dulcolax (bisacodyl)] 10 mg Suppository 10 mg TN Q6 PRN (Reason: Constipation) RF: 0 memantine 10 mg tablet 10 mg PO BID RF: 0 vitamin B complex-folic acid 400 mcg Tablet Extended Release 0 tab PO DAILY RF: 0 cholecalciferol (vitamin D3) [Vitamin D3] 50 mcg (2,000 unit) Tablet 4,000 unit PO DAILY RF: 0 Eucerin Cream 1 applic TOPICAL AMHS RF: 0 Probiotic 3 billion cell Capsule 0 mmu cells PO DAILY RF: 0 Medical Decision Making Differential Diagnosis Reactive airway disease, pneumonia, pneumothorax, COPD, CHF, infections, cardiac ischemia, pulmonary embolism, musculoskeletal, gastrointestinal, as well as other pathologies. Medical Records Attestation: I reviewed the patient's medical records. Home Medications Current Medication List: was personally reviewed by me Laboratory Data Attestation: I reviewed the patient's lab results. Result diagrams: 07/08/20 20:30 07/08/20 20:30 Lab Results 07/08/20 07/08/20 07/08/20 Range/Units 20:30 20:30 20:30 WBC 18.14 H (4.8-10.8) K/uL RBC 4.18 L (4.2-5.4) M/uL Hgb 12.4 (12.0-16.0) g/dL POC Hgb (12.0-16.0) g/dl Hct 40.3 (37-47) % POC Hct (37-47) % MCV 96.4 (80-100) fL MCH 29.7 (25-34) pg MCHC 30.8 L (32-36) g/dL RDW Std Deviation 49.9 H (36.4-46.3) fL RDW Coeff of Lakshmi 14.1 (11.5-14.5) % Plt Count 299 (130-400) K/uL MPV 9.9 (7.4-10.4) fL Immature Gran % (Auto) 0.5 % Neut % (Auto) 86.9 % Lymph % (Auto) 8.4 % Bay % (Auto) 3.9 % Eos % (Auto) 0.1 % Baso % (Auto) 0.2 % Neut # (Auto) 15.77 H (1.4-6.5) K/uL Lymph # (Auto) 1.53 (1.2-3.4) K/uL Bay # (Auto) 0.70 H (0.11-0.59) K/uL Eos # (Auto) 0.01 (0-0.5) K/uL Baso # (Auto) 0.04 (0-0.2) K/uL Immature Gran # (Auto) 0.09 H (0.00-0.02) K/uL PT (9.0-12.0) Seconds INR (0.9-1.1) APTT (21.0-31.0) Seconds PTT Ratio POC Sodium (135-144) mmol/L Sodium 156 H* (136-145) mmol/L POC Potassium (3.3-5.0) mmol/L Potassium 3.5 (3.5-5.1) mmol/L POC Chloride (101-112) mmol/L Chloride 124 H (98-107) mmol/L Carbon Dioxide 23 (21-32) mmol/L POC Total CO2 (24-31) mmol/L Anion Gap 9.0 (3-11) POC Anion Gap (16-25) mmol/L POC BUN (7-18) mg/dl BUN 36 H (7-18) mg/dl Creatinine 1.60 H (0.6-1.2) mg/dl POC Creatinine (0.6-1.3) mg/dl Est Cr Clr Drug Dosing 17.8 ml/min Est GFR ( Amer) 33.2 Est GFR (Non-Af Amer) 28.7 BUN/Creatinine Ratio 22.4 H (10-20) Glucose 154 H (70-99) mg/dl POC Glucose (other) (70-99) mg/dl Lactate (0.4-2.0) mmol/L Calcium 9.5 (8.5-10.1) mg/dl POC Ioniz Calcium Zoila (1.12-1.32) mmol/l Magnesium 2.5 H (1.8-2.4) mg/dl Total Bilirubin 0.3 (0.2-1) mg/dl AST 17 (15-37) U/L ALT 16 (12-78) U/L Alkaline Phosphatase 56 (45-117) U/L Total Creatine Kinase 295 H (26-192) U/L CK-MB (CK-2) 1.7 (0.5-3.6) ng/ml CK/CKMB % Calc 0.6 (0-3.0) Troponin I 0.056 H* (0-0.045) ng/ml Total Protein 6.9 (6.4-8.2) gm/dl Albumin 3.0 L (3.4-5.0) gm/dl Globulin 3.9 (2.5-4.0) gm/dl Albumin/Globulin Ratio 0.8 L (0.9-2) Procalcitonin < 0.05 (0-0.5) ng/ml Urine Color Urine Appearance (Clear) Urine pH (4.5-7.5) Ur Specific [place] (1.000-1.030) Urine Protein (Negative) Urine Glucose (UA) (Negative) Urine Ketones (Negative) Urine Blood (Negative) Urine Nitrite (Negative) Urine Bilirubin (Negative) Urine Urobilinogen (Negative) Ur Leukocyte Esterase (Negative) Urine WBC (Auto) (0-5) /hpf Urine RBC (Auto) (0-4) /hpf U Hyaline Cast (Auto) (0-5) /lpf U Epithel Cells (Auto) (0-5) /lpf Urine Bacteria (Auto) (Negative) Ur Renal Epithelial Cell (0-5) /lpf Granular Casts (0) /lpf COVID-19 Eval Order COVID-19 PCR (Negative) 07/08/20 07/08/20 07/08/20 Range/Units 20:30 20:37 20:38 WBC (4.8-10.8) K/uL RBC (4.2-5.4) M/uL Hgb (12.0-16.0) g/dL POC Hgb 11.9 L (12.0-16.0) g/dl Hct (37-47) % POC Hct 35 L (37-47) % MCV (80-100) fL MCH (25-34) pg MCHC (32-36) g/dL RDW Std Deviation (36.4-46.3) fL RDW Coeff of Lakshmi (11.5-14.5) % Plt Count (130-400) K/uL MPV (7.4-10.4) fL Immature Gran % (Auto) % Neut % (Auto) % Lymph % (Auto) % Bay % (Auto) % Eos % (Auto) % Baso % (Auto) % Neut # (Auto) (1.4-6.5) K/uL Lymph # (Auto) (1.2-3.4) K/uL [place] # (Auto) (0.11-0.59) K/uL Eos # (Auto) (0-0.5) K/uL Baso # (Auto) (0-0.2) K/uL Immature Gran # (Auto) (0.00-0.02) K/uL PT 11.1 (9.0-12.0) Seconds INR 1.1 (0.9-1.1) APTT 32.9 H (21.0-31.0) Seconds PTT Ratio 1.2 POC Sodium 157 H* (135-144) mmol/L Sodium (136-145) mmol/L POC Potassium 3.5 (3.3-5.0) mmol/L Potassium (3.5-5.1) mmol/L POC Chloride 121 H (101-112) mmol/L Chloride (98-107) mmol/L Carbon Dioxide (21-32) mmol/L POC Total CO2 21 L (24-31) mmol/L Anion Gap (3-11) POC Anion Gap 19.0 (16-25) mmol/L POC BUN 32 H (7-18) mg/dl BUN (7-18) mg/dl Creatinine (0.6-1.2) mg/dl POC Creatinine 1.6 H (0.6-1.3) mg/dl Est Cr Clr Drug Dosing ml/min Est GFR ( Amer) Est GFR (Non-Af Amer) BUN/Creatinine Ratio (10-20) Glucose (70-99) mg/dl POC Glucose (other) 157 H (70-99) mg/dl Lactate (0.4-2.0) mmol/L Calcium (8.5-10.1) mg/dl POC Ioniz Calcium Zoila 1.23 (1.12-1.32) mmol/l Magnesium (1.8-2.4) mg/dl Total Bilirubin (0.2-1) mg/dl AST (15-37) U/L ALT (12-78) U/L Alkaline Phosphatase (45-117) U/L Total Creatine Kinase (26-192) U/L CK-MB (CK-2) (0.5-3.6) ng/ml CK/CKMB % Calc (0-3.0) Troponin I (0-0.045) ng/ml Total Protein (6.4-8.2) gm/dl Albumin (3.4-5.0) gm/dl Globulin (2.5-4.0) gm/dl Albumin/Globulin Ratio (0.9-2) Procalcitonin (0-0.5) ng/ml Urine Color Urine Appearance (Clear) Urine pH (4.5-7.5) Ur Specific [place] (1.000-1.030) Urine Protein (Negative) Urine Glucose (UA) (Negative) Urine Ketones (Negative) Urine Blood (Negative) Urine Nitrite (Negative) Urine Bilirubin (Negative) Urine Urobilinogen (Negative) Ur Leukocyte Esterase (Negative) Urine WBC (Auto) (0-5) /hpf Urine RBC (Auto) (0-4) /hpf U Hyaline Cast (Auto) (0-5) /lpf U Epithel Cells (Auto) (0-5) /lpf Urine Bacteria (Auto) (Negative) Ur Renal Epithelial Cell (0-5) /lpf Granular Casts (0) /lpf COVID-19 Eval Order Covid19 Done at [facility] COVID-19 PCR (Negative) 07/08/20 07/08/20 07/08/20 Range/Units 20:38 21:06 22:24 WBC (4.8-10.8) K/uL RBC (4.2-5.4) M/uL Hgb (12.0-16.0) g/dL POC Hgb (12.0-16.0) g/dl Hct (37-47) % POC Hct (37-47) % MCV (80-100) fL MCH (25-34) pg MCHC (32-36) g/dL RDW Std Deviation (36.4-46.3) fL RDW Coeff of Lakshmi (11.5-14.5) % Plt Count (130-400) K/uL MPV (7.4-10.4) fL Immature Gran % (Auto) % Neut % (Auto) % Lymph % (Auto) % Bay % (Auto) % Eos % (Auto) % Baso % (Auto) % Neut # (Auto) (1.4-6.5) K/uL Lymph # (Auto) (1.2-3.4) K/uL [place] # (Auto) (0.11-0.59) K/uL Eos # (Auto) (0-0.5) K/uL Baso # (Auto) (0-0.2) K/uL Immature Gran # (Auto) (0.00-0.02) K/uL PT (9.0-12.0) Seconds INR (0.9-1.1) APTT (21.0-31.0) Seconds PTT Ratio POC Sodium (135-144) mmol/L Sodium (136-145) mmol/L POC Potassium (3.3-5.0) mmol/L Potassium (3.5-5.1) mmol/L POC Chloride (101-112) mmol/L Chloride (98-107) mmol/L Carbon Dioxide (21-32) mmol/L POC Total CO2 (24-31) mmol/L Anion Gap (3-11) POC Anion Gap (16-25) mmol/L POC BUN (7-18) mg/dl BUN (7-18) mg/dl Creatinine (0.6-1.2) mg/dl POC Creatinine (0.6-1.3) mg/dl Est Cr Clr Drug Dosing ml/min Est GFR ( Amer) Est GFR (Non-Af Amer) BUN/Creatinine Ratio (10-20) Glucose (70-99) mg/dl POC Glucose (other) (70-99) mg/dl Lactate 1.5 (0.4-2.0) mmol/L Calcium (8.5-10.1) mg/dl POC Ioniz Calcium Zoila (1.12-1.32) mmol/l Magnesium (1.8-2.4) mg/dl Total Bilirubin (0.2-1) mg/dl AST (15-37) U/L ALT (12-78) U/L Alkaline Phosphatase (45-117) U/L Total Creatine Kinase (26-192) U/L CK-MB (CK-2) (0.5-3.6) ng/ml CK/CKMB % Calc (0-3.0) Troponin I (0-0.045) ng/ml Total Protein (6.4-8.2) gm/dl Albumin (3.4-5.0) gm/dl Globulin (2.5-4.0) gm/dl Albumin/Globulin Ratio (0.9-2) Procalcitonin (0-0.5) ng/ml Urine Color Yellow Urine Appearance Clear (Clear) Urine pH 6.0 (4.5-7.5) Ur Specific [place] > 1.045 H (1.000-1.030) Urine Protein Trace H (Negative) Urine Glucose (UA) Trace H (Negative) Urine Ketones 1+ H (Negative) Urine Blood Negative (Negative) Urine Nitrite Negative (Negative) Urine Bilirubin Negative (Negative) Urine Urobilinogen Negative (Negative) Ur Leukocyte Esterase Trace H (Negative) Urine WBC (Auto) 10-30 H (0-5) /hpf Urine RBC (Auto) 10-30 H (0-4) /hpf U Hyaline Cast (Auto) 10-30 H (0-5) /lpf U Epithel Cells (Auto) >30 H (0-5) /lpf Urine Bacteria (Auto) Negative (Negative) Ur Renal Epithelial Cell 0-5 (0-5) /lpf Granular Casts 1-5 H (0) /lpf COVID-19 Eval Order COVID-19 PCR NEGATIVE (Negative) Imaging Data Attestation: I personally reviewed and interpreted this imaging study as follows: My Impression: 1 view of the chest was interpreted by me shows no evidence of pneumonia congestion or pneumothorax. Radiologist's Impression: CTA of the chest: Segmental pulmonary emboli within the left upper lobe. No CT evidence of right heart strain. Left lower lobe consolidation. Extensive bilateral centrilobular nodularity. Consider aspiration and aspiration pneumonia. CT of the head: No acute intracranial hemorrhage, hydrocephalus, edema, mass- effect or acute cortical infarct. Global parenchymal atrophy and mild chronic microvascular ischemic changes. Paranasal sinuses and mastoid [place] air cells are clear. No fracture. ECG Data Attestation: I personally reviewed and interpreted this ECG as follows: Indication: + altered mental status Rate (beats per minute): 93 Rhythm: + normal sinus ECG Intervals/blocks: + Prolonged QT ECG [place]: + Right axis deviation ECG ST segments: + ST depression (Anterolateral) Comparison ECG Date: from (05/28/2018) Change: the following changes noted (ST depression in anteror lateral leads) MDM Narrative Patient was seen and evaluated as above in room A1. Review was performed of nursing notes and vital signs. I did review pertinent previous visits and patient history. After obtaining a thorough history and physical examination the above work up was performed. This is an 85-year-old female who arrives to the emergency department in acute distress. Patient is unresponsive and obtunded. She was placed on BiPAP. Her sodium was found to be grossly elevated at 157. I began resuscitating the patient with 30 mL's per kilogram of fluid normal saline bolus. She was pancultured and started on antibiotics including Zosyn and Levaquin. She was sent for CAT scan of the head as well as the chest. CAT scan of the chest is concerning for a PE. I did discuss the case with the sons who are in agreement with the treatment plan. Patient was placed on BiPAP upon arrival to the [facility] department and given an hour-long breathing treatment. An order was placed for continuous cardiac monitoring. The monitor shows a rate of 100 with Normal SInus rhythm. The patient was evaluated during the global COVID-19 pandemic, and that diagnosis was suspected/considered upon their initial presentation. Their evaluation, treatment and testing was consistent with current guidelines for patients who present with complaints or symptoms that may be related to COVID- 19. Discharge Problem: Pulmonary embolism Qualifiers: Pulmonary embolism type: unspecified Chronicity: acute Acute cor pulmonale presence: without acute cor pulmonale Qualified Code(s): I26.99 - Other pulmonary embolism without acute cor pulmonale Respiratory failure Qualifiers: Chronicity: acute Respiratory failure complication: unspecified whether with hypoxia or hypercapnia Qualified Code(s): J96.00 - Acute respiratory failure, unspecified whether with hypoxia or hypercapnia Pneumonia Qualifiers: Pneumonia type: due to unspecified organism Laterality: unspecified laterality Lung location: unspecified part of lung Qualified Code(s): J18.9 - Pneumonia, unspecified organism
[2020-07-09] MEDS ORDERED: NITROGLYCERIN SL 0.4 MG/TAB TAB SL PRN (01:08)
[2020-07-09] MEDS ORDERED: bisacodyL 10 MG SUPP PR PRN (01:08)
[2020-07-09] MEDS ORDERED: ACETAMINOPHEN 325 MG TAB PO PRN (01:08)
[2020-07-09] MEDS: D5W AND 1/2NSS 1,000 ML IV SCH ×2 (01:57→11:40)
[2020-07-09] MEDS: Heparin IV Low Dose *NO* Bolus IV SCH ×3 (02:01→03:27)
--- NOTE | 2020-07-09 02:20 | History and Physical Report ---
DATE OF ADMISSION: 07/08/2020 CHIEF COMPLAINT: Acute respiratory failure and unresponsiveness. HISTORY OF PRESENT ILLNESS: This is an 85-year-old female with past medical history significant for mixed Alzheimer's and vascular dementia, peripheral vascular disease, chronic kidney disease stage III, major depression, currently a resident of [facility], was brought in because of respiratory distress and also she was unresponsive when she came to the ER. As per the [facility] , the clinical automobile assembly supervisor, when she came around 7:00 tonight, at 6:45 p.m., she was found to have rhonchi and gasping for air, they put on 2 liters oxygen,saturations came only up to 68%, they increased to 4 liters,increasing oxygen saturations only to 80%.Patient was also recently started on Bactrim for UTI on 07/05/2020 .sink cutter doctor called the son whether to send the patient to hospital, the son decided to send the patient to hospital and she was brought in here and when she came in, she was unresponsive as per the ER physician, she was only saturating in 70s. She was placed on BiPAP, she was given a liter of fluids and antibiotics.She was tachycardic and her white count was 18,000. Sodium was 156, creatinine was 1.6. Lactate 1.5. Troponin was 0.05 and COVID-19 PCR was negative. After the fluids and antibiotics, the patient opened her eyes and they tapered down oxygen to OxyMask 6 liters and she is saturating 100%. She is afebrile currently and her COVID-19 PCR in the ER is negative. CT of the head is unremarkable. CTA of the chest was done which shows right upper lobe segmental PE and also left lower lobe infiltrate, possible aspiration pneumonitis. As per the longterm, the patient generally was not oriented, until 3-4 days ago, she was ambulating by herself, but since about a month, she is mostly using wheelchair. She is on soft diet.She was diagnosed with UTI few days back and the patient's on Bactrim since 07/05., LAst few days she is not eating and drinking much .Patient is DNR/DNI. Also talked to the son who is the power of bankruptcy attorney, he confirms that the patient is DNR/DNI, but he is okay with antibiotics and anticoagulation for PE. He says they were not able to see his mom because of COVID and as been doing Face Time. As per him, the patient knows her name and sometimes says coherent sentences, but sometimes confused, but he could not exactly tell what she knows and what she does not know.As per son sometimes she does not eat because she does not like the food. As per longterm, there is no recent nausea, vomiting. No diarrhea, no constipation, no cough and first time her temperature was 99.1 degrees today. The patient is currently shaky she says she is doing okay. Otherwise, could not get any history from the patient.As per longterm devin generally does not talk much. Not even oriented to name as per longterm ALLERGIES: No known drug allergies. PAST MEDICAL HISTORY: As mentioned above. PAST SURGICAL HISTORY: Injection of the eyes, removal of cataracts. MEDICATIONS: Tylenol 650 mg p.o. q. 6 hours p.r.n., Tylenol 650 mg p.o. b.i.d., aspirin 81 mg p.o. daily, Dulcolax 10 mg per rectal q. 6 hours p.r.n., vitamin D 4000 units p.o. daily, Celexa 20 mg p.o. daily, lactobacillus tablet daily, megestrol 400 mg p.o. daily, memantine 10 mg p.o. b.i.d., multivitamin 1 tablet p.o. daily, artificial tears 1 drop ophthalmic b.i.d. p.r.n., risperidone 2 mg p.o. b.i.d., Senokot S 1 tablet p.o. at bedtime, Bactrim DS 1 tablet p.o. b.i.d., vitamin B complex 1 tablet daily. FAMILY HISTORY: No family history on record. SOCIAL HISTORY: No smoking. No alcohol, no drug use. Currently living at [facility]. REVIEW OF SYSTEMS: Unobtainable as the patient is currently nonverbal. PHYSICAL EXAMINATION: GENERAL: The patient is old and frail, currently does not seem to be in acute distress.Yohanky. VITAL SIGNS: Temperature 36.9, pulse 118, respiratory rate 19, blood pressure 124/64, oxygen 100% OxyMask 6 liters. HEENT: No pallor. Pupils equal, round, reactive to light. NECK: No carotid bruit, no neck masses seen, supple. CARDIOVASCULAR: S1, S2 heard. Tachycardia. No murmur, no gallop. RESPIRATORY SYSTEM: Normal AP diameter. No accessory muscle use. Do not appreciate any wheezing or crackles. ABDOMEN: Soft, bowel sounds present. No distention. Nontender. CENTRAL NERVOUS SYSTEM: Currently alert and awake, not oriented, mostly nonverbal, says she is doing okay, moving her upper extremities. EXTREMITIES: No edema, no erythema seen. LABORATORY DATA: WBC 18.1, hemoglobin 12.4, hematocrit 40.3, platelets 299. PT 11.1, INR 1.1, APTT 32.9. Sodium 156, potassium 3.5, chloride 124, bicarbonate 23, BUN 36, creatinine 1.6, serum glucose 154. Lactate 1.5, calcium 9.5, magnesium 2.5, total bilirubin 0.3, AST 17, ALT 16, alkaline phosphatase 56, total creatinine kinase 295, troponin I 0.056. Procalcitonin less than 0.05. Urinalysis, trace leukocyte esterase. COVID-19 PCR negative. IMAGING: CT of the head, preliminary report, no acute findings. Chest x-ray, no acute findings seen. CTA of the chest, segmental pulmonary emboli within the left upper lobe. No CT evidence of right heart strain, left lower lobe consolidation, extensive bilateral central lobular nodularity consider aspiration and aspiration pneumonia. EKG: Normal sinus rhythm, ST-T wave abnormality, prolonged QT at 482. ST depression in anterior leads. ASSESSMENT AND PLAN: This is an 85-year-old female who presents with respiratory distress and also found to have hypernatremia and aspiration pneumonia. 1. Unresponsive, encephalopathy most likely secondary to acute respiratory failure. The patient has aspiration pneumonitis. In the ER, was given vancomycin, Zosyn and Levaquin. We will continue with vancomycin and Zosyn. Follow the cultures. IV fluids. We will keep her n.p.o. until speech evaluation. Most likely her respiratory distress could be mostly from aspiration pneumonitis. COVID-19 PCR is negative. We will continue the OxyMask for now and taper down oxygen as able.. 2. Hypernatremia, could also cause of encephalopathy, mostly secondary to dehydration, not eating and drinking much for the last 2-3 days as per longterm. We will place her on D5 half normal saline at 100 mL per hour and check BMP q. 6 hours. We will also consult nephrology. We will avoid rapid correction of the sodium. We will correct less than 8 mEq per day. 3. Pulmonary embolism. CTA chest showing left upper lobe segmental PE. Son is okay with anticoagulation, started on IV heparin low dose protocol. We will also do echocardiogram and also lower extremity Doppler. 4. Shakiness. Possibly from acute resp distres, possibly from sepsis from pneumonia and uti . Abx as above. Will monitor. 5. Mild elevation in troponin, EKG changes could be mostly from the respiratory distress and PE. We will follow serial enzymes, echocardiogram and repeat EKG in a.m. 6. Recent urinary tract infection which was E. coli pansensitive, antibiotics as above. 7. Dementia. Continue home memantine. She is also on risperidone, which we will continue.Monitor for delirium. 8. Depression. Continue Celexa. 9. Acute kidney injury on chronic kidney disease stage III. Baseline creatinine around 1.1, presented with creatinine 1.6. Getting fluids. Avoid nephrotoxic agents. We will follow the labs in a.m. 10. Deep venous thrombosis prophylaxis. Getting IV heparin. DISPOSITION: Closely monitor in the tele floor. Code status: DNR/DNI as per my discussion with [place] and also with her son. PT and OT prior to discharge. Social Service to help with discharge planning. SYLVESTER
[2020-07-09] MEDS: HEPARIN SODIUM/DEXTROSE 25,000 UNITS/500 ML BAG IV SCH (02:24)
[2020-07-09] MEDS: ACETAMINOPHEN 1000 MG/100 ML IV IV PRN ×2 (04:38→15:58)
[2020-07-09 05:46] LABS: Basophils # (auto) 0.01 K/uL (0-0.2); Basophils % (auto) 0.1 %; Hematocrit (blood only) 33.3 % (37-47); Hemoglobin 10.2 g/dL (12.0-16.0); Immature Granulocytes # (auto) 0.05 K/uL (0.00-0.02); Immature Granulocytes % (auto) 0.3 %; Lymphocytes # (auto) 0.54 K/uL (1.2-3.4); Lymphocytes % (auto) 3.3 %; Mean Corpuscular Hemoglobin 29.2 pg (25-34); Mean Corpuscular Hgb Conc 30.6 g/dL (32-36); Mean Corpuscular Volume 95.4 fL (80-100); Monocytes % (auto) 3.7 %; Neutrophils # (auto) 15.18 K/uL (1.4-6.5); Neutrophils % (auto) 92.6 %; Platelet Count 239 K/uL (130-400); RDW Coefficient of Variation 14.3 % (11.5-14.5); RDW Standard Deviation 49.4 fL (36.4-46.3); Red Blood Count 3.49 M/uL (4.2-5.4); White Blood Count 16.38 K/uL (4.8-10.8)
[2020-07-09] MEDS: PIPERACILLIN/TAZOBACTAM 3.375 GM in DEXTROSE 5% 100 ML IV SCH ×2 (05:48→19:03)
[2020-07-09 06:20] LABS: BUN Creatinine Ratio 18.9 (10-20); Calcium 8.3 mg/dl (8.5-10.1); Creatinine Clr Calc Pharmacy 17.8 ml/min; Est GFR (African American) 38.4; Est GFR (Non-African American) 33.1; Magnesium 2.2 mg/dl (1.8-2.4); Potassium 3.6 mmol/L (3.5-5.1)
[2020-07-09 06:30] LABS: Troponin I 0.752 ng/ml (0-0.045)
[2020-07-09 06:57] LABS: Partial Thromboplastin Ratio 1.2; Partial Thromboplastin Time 33.7 Seconds (21.0-31.0)
--- NOTE | 2020-07-09 07:34 | CT Scan Report ---
CT OF THE HEAD WITHOUT CONTRAST CLINICAL HISTORY: Altered mental status. COMPARISON STUDY: CT May 27, 2018. TECHNIQUE: Helical axial images of the head were obtained without IV contrast. Automated exposure con trol was utilized for the study. A dose lowering technique was utilized adhering to the principles o f ALARA. FINDINGS: No acute intracranial hemorrhage, midline shift or mass effect is present. Moderate atrophy is again noted. White matter hypodensity similar to prior examination represent small vessel disease . The ventricular system is unremarkable. The basilar cisterns are patent. No extra-axial collections are present. There are no findings to suggest acute dural sinus thrombosis or acute territorial infa rct. No significant calvarial abnormalities are present. Visualized portions of the sinuses and masto id air cells are clear. IMPRESSION: No acute intracranial findings. No change in appearance of the brain. ACT 112: Negative or not required by law. Electronically signed by: John Mosley M.D. 07/09/2020 7:32 AM
--- NOTE | 2020-07-09 07:39 | XRay Report ---
XR chest 1V portable CLINICAL HISTORY: SEPSIS COMPARISON STUDY: Chest radiograph May 08, 2018. FINDINGS: Lung volumes are normal. There is no pneumothorax or pleural effusion. Medial left basilar opacity is new since prior exam. There may be mild left perihilar opacity. There is no evidence for p ulmonary edema. Right lung is clear. Cardiac size is normal. Mediastinal contours are normal. IMPRESSION: Interval development of medial left basilar opacity. This may reflect pneumonia or atele ctasis. Possible mild left perihilar opacity. Radiographic follow-up to ensure resolution is recommen ded. ACT 112: Negative or not required by law. Electronically signed by: John Mosley M.D. 07/09/2020 7:37 AM
--- NOTE | 2020-07-09 08:22 | CT Scan Report ---
CT ANGIOGRAM OF THE CHEST CLINICAL HISTORY: Dyspnea. Hypoxia. Change in mental status. COMPARISON STUDY: Chest x-ray dated 07/08/2020. TECHNIQUE: Following the IV administration of 100 cc of Optiray 320, CT angiogram of the chest was pe rformed from the upper abdomen to the thoracic inlet utilizing the pulmonary embolus protocol. Images are reviewed in the axial, sagittal, and coronal planes. 3-D MIPS images are created and assessed. I V contrast was administered without complication. A dose lowering technique was utilized adhering to the principles of ALARA. The examination is significantly degraded by motion artifact, as well as by streak artifact from the arms which could not be elevated above the chest. CT DOSE: 769.27 mGy.cm FINDINGS: Thyroid: The thyroid gland is mildly enlarged and heterogeneous. Low-attenuation nodules measure up t o 1.1 cm. Thoracic aorta: There is atherosclerotic calcification of the thoracic aorta, which is normal in libia danielito and demonstrates standard 3-vessel arch anatomy. No dissection is seen. Pulmonary vasculature: The pulmonary trunk is normal in caliber. There is thrombus within the distal left main pulmonary artery. This extends into the left upper lobe pulmonary artery into segmental and subsegmental branches. Heart: The heart is normal in size and without pericardial effusion. The coronary arteries are densel y calcified. Lungs and pleural spaces: Evaluation of the lung parenchyma is degraded by motion artifact. There is patchy airspace consolidation seen throughout both lungs with dense airspace consolidation at the lef t lung base. No significant pleural effusion is identified. Layering secretions are noted in the trac hea. Mediastinum: Mildly enlarged AP window nodes measure up to 12 mm in short axis. Ramya: There are mildly enlarged left hilar lymph nodes which are likely on a reactive basis. No right hilar adenopathy is seen. Axillae: There is no axillary lymphadenopathy. Upper abdomen: Partially visualized upper abdominal viscera is within normal limits. Skeletal structures: The skeletal structures are osteopenic. Degenerative change and mild kyphoscolio sis is noted in the thoracic spine. No lytic or blastic bony lesions are seen. There is chronic postt raumatic deformity of the left clavicle. IMPRESSION: 1. Streak and motion compromised examination. 2. Left-sided pulmonary emboli as above. 3. There is diffuse patchy consolidation seen throughout both lungs, with dense airspace consolidatio n at the left lung base. The appearance is typical for pneumonia/aspiration pneumonitis. Clinical cor relation will be required and radiographic follow-up to resolution is recommended. Follow-up x-rays s hould include both PA and lateral views. 4. Mildly enlarged mediastinal and left hilar nodes are nonspecific and may be on a reactive basis. 5. Additional findings as above. ACT 112: Negative or not required by law. Electronically signed by: Chuck Herron M.D. 07/09/2020 8:21 AM
[2020-07-09] MEDS ORDERED: MEGESTROL ACETATE 800 MG/20 ML UDP PO SCH (09:00)
--- NOTE | 2020-07-09 09:04 | Nephrology Consultation ---
Date of Consultation July 09, 2020 Assessment & Plan (1) Hypernatremia: not acute (ie>48 hr duration) since she already had mild hypernatremia on late Jun labs as above. presented at 156 on 07/08; now 153 this am. by definition from diminished po intake/dehydration; unclear from hx if decreased po intake is subacute or emerged simply w/ recent UTI -cont D51/2 NS current rate as tolerated -recheck bmp q6-8 hr -goal sNa high 140s by this evening Present on Admission?: Yes (2) Acute on chronic renal failure: Baseline creatinine 0.9-1.0. On 07/08 presentation, creatinine was 1.6, improved to 1.4 today. urine sediment c/w ATN; hx adn presentation suggestive of prerenal progressive to ischemic ATN in setting of volume depletion. continue supportive measures. Bactrim prior to admission may have a role in creatinine elevation (blocks secretion). chemistries apart from sNa ok; clinically dry -no indication necessarily for maldonado > defer to primary service -daily bmp -no indication for consideration of HD at this time Present on Admission?: Yes (3) Pulmonary embolism: on heparin gtt; per primary service Present on Admission?: Yes History of Present Illness Reason for Consultation: hypernatremia Requesting Physician: Dr Bonilla Attending Physician: Paramjit Hollis MD History of Present Illness 85-year-old female whom I am asked to evaluate for hypernatremia after she was admitted overnight with respiratory distress that in the ER progressed to an unresponsive episode. Her presenting sodium was 156 At 2100 on July 08, improved to 153 today. Her presenting creatinine was 1.6, improved to 1.4 today. Past medical history includes Alzheimer's and vascular dementia, CKD 3 with baseline creatinine 0.9-1.0 as recently as March 2020. On July 03, she did have creatinine 1.2 and sodium 148. She had on that date been sta rted on Bactrim for an E. coli UTI. She is currently getting D5 1/2 NS at 100 mL hourly and Zosyn. She has also had a gram of vancomycin, a dose of Levaquin, and 1.5 L normal saline in the ER. she did have IV contrast last night for a chest CT which showed left-sided pulmonary emboli and dense consolidation at the left base concerning for aspiration/PNA. Tmax ON 37.9. Labs ordered q6h. Pt does have significant dementia at baseline. In general she ambulates on her own; for the past few weeks however has been using wheelchair. Allergies Allergy/AdvReac Type Severity Reaction Status Date / Time No Known Allergies Allergy Verified 07/08/20 23:05 Home Medications Home Medications Medication Instructions Recorded Confirmed Type acetaminophen 650 mg PO Q6 PRN 07/08/20 07/08/20 History acetaminophen [Tylenol] 650 mg PO BID 07/08/20 07/08/20 History aspirin [Aspir-81] 81 mg PO DAILY 07/08/20 07/08/20 History bisacodyl [Dulcolax (bisacodyl)] 10 mg OK Q6 PRN 07/08/20 07/08/20 History cholecalciferol (vitamin D3) 4,000 unit PO DAILY 07/08/20 07/08/20 History [Vitamin D3] citalopram [Celexa] 20 mg PO DAILY 07/08/20 07/09/20 History lactobacillus combination no.4 0 mmu cells PO DAILY 07/08/20 07/08/20 History [Probiotic] lanolin skedzhm-eo-q.pet-ceres 1 applic TOPICAL AMHS 07/08/20 07/08/20 History [Eucerin] magnesium hydroxide [Milk of 30 ml PO UD PRN 07/08/20 07/08/20 History Magnesia] megestrol 400 mg PO DAILY 07/08/20 07/08/20 History memantine 10 mg PO BID 07/08/20 07/08/20 History multivitamin 1 tab PO DAILY 07/08/20 07/08/20 History polyvinyl alcohol [Artificial 1 drp OPB BID PRN 07/08/20 07/08/20 History Tears (polyvin alc)] risperidone 2 mg PO BID 07/08/20 07/08/20 History sennosides-docusate sodium [Senna 1 tab-cap PO HS 07/08/20 07/08/20 History Plus] sulfamethoxazole-trimethoprim 1 tab PO BID 07/08/20 07/08/20 History [Bactrim DS] vitamin B complex-folic acid 0 tab PO DAILY 07/08/20 07/08/20 History Patient History Medical History CKD (chronic kidney disease) stage 3, GFR 30-59 ml/min Dementia DJD (degenerative joint disease) of cervical spine Lumbago Thyroid disease Surgical History History of cataract surgery Social History Smoking Status: Never smoker Cigarettes Per Day: unable to obtain; Communication Ability: Unable Current Living Situation: Prison Feels Safe at Home: Declines to Answer Assistive Devices: Oxygen - Continuous Assistive Devices Comment: unable to obtain Review of Systems Review of Systems: Unobtainable due to reduced consciousness Physical Exam Constitutional: well developed, + cachectic and + lethargic; no acute distress Eyes: EOM intact bilaterally (eyes open, tracks) ENMT: Ears: no external ear abnormality Nose: no external nose abnormality Mouth: + dry oral mucous membranes Neck: no nuchal rigidity Respiratory: normal respiratory effort Auscultation: + diminished lung sounds (but mostly clear) Cardiovascular: Rate/Rhythm: regular rate and regular rhythm Extremities: + edema (trace dependent) Gastrointestinal (Abdomen): Inspection/Auscultation: normal bowel sounds Percussion/Palpation: abdomen soft; abdomen nontender Musculoskeletal: Extremities: + abnormal strength Skin: no rashes, warm and dry Neurologic: aphasic; RUE tremor and rigidity Genitourinary: maldonado w/ scant urine Results & Data ([facility]) Vital Signs (Past 12 Hours) Vital Signs Temp Pulse Pulse Resp BP BP Pulse Ox 07/09/20 08:13 37.6 C H 81 16 116/56 L 97 07/09/20 04:00 37.9 C H 102 H 120/57 L 96 07/09/20 01:00 93 H 07/09/20 00:40 36.9 C 88 16 116/54 L 98 07/09/20 00:36 92 H 16 109/53 L 93 07/08/20 22:29 100 07/08/20 22:15 118 H 19 124/64 100 07/08/20 22:05 108 H 19 103/40 L 100 07/08/20 22:03 121 H 19 100 07/08/20 21:40 101 H 19 100/54 L 98 07/08/20 21:36 20 10/01/20 21:31 112 H 18 68/44 L 97 07/08/20 21:30 114 H 20 95 07/08/20 21:15 120 H 21 96 07/08/20 21:01 98 H 22 101/53 L 100 07/08/20 21:00 110 H 22 100 Laboratory Results 07/09/20 05:19 07/09/20 05:19 Blood and urine cultures in process Tober first urinalysis: Clinch gravity more than 1045, pH 6, trace protein, trace glucose, 1+ ketones, Between 10 and 30 white cells, red cells, hyaline casts; greater than 30 epithelial cells; no bacteria; trace leukocyte esterase; 1-5 granular casts per high-powered field Diagnostic Findings CT chest PE protocol CT ANGIOGRAM OF THE CHEST CLINICAL HISTORY: Dyspnea. Hypoxia. Change in mental status. COMPARISON STUDY: Chest x-ray dated 07/08/2020. TECHNIQUE: Following the IV administration of 100 cc of Optiray 320, CT angiogram of the chest was performed from the upper abdomen to the thoracic inlet utilizing the pulmonary embolus protocol. Images are reviewed in the axial, sagittal, and coronal planes. 3-D MIPS images are created and assessed. IV contrast was administered without complication. A dose lowering technique was utilized adhering to the principles of ALARA. The examination is significantly degraded by motion artifact, as well as by streak artifact from the arms which could not be elevated above the chest. CT DOSE: 769.27 mGy.cm FINDINGS: Thyroid: The thyroid gland is mildly enlarged and heterogeneous. Low-attenuation nodules measure up to 1.1 cm. Thoracic aorta: There is atherosclerotic calcification of the thoracic aorta, which is normal in caliber and demonstrates standard 3-vessel arch anatomy. No dissection is seen. Pulmonary vasculature: The pulmonary trunk is normal in caliber. There is thrombus within the distal left main pulmonary artery. This extends into the l eft upper lobe pulmonary artery into segmental and subsegmental branches. Heart: The heart is normal in size and without pericardial effusion. The coronary arteries are densely calcified. Lungs and pleural spaces: Evaluation of the lung parenchyma is degraded by motion artifact. There is patchy airspace consolidation seen throughout both lungs with dense airspace consolidation at the left lung base. No significant pleural effusion is identified. Layering secretions are noted in the trachea. Mediastinum: Mildly enlarged AP window nodes measure up to 12 mm in short axis. Ramya: There are mildly enlarged left hilar lymph nodes which are likely on a reactive basis. No right hilar adenopathy is seen. Axillae: There is no axillary lymphadenopathy. Upper abdomen: Partially visualized upper abdominal viscera is within normal limits. Skeletal structures: The skeletal structures are osteopenic. Degenerative change and mild kyphoscoliosis is noted in the thoracic spine. No lytic or blastic bony lesions are seen. There is chronic posttraumatic deformity of the left clavicle. IMPRESSION: 1. Streak and motion compromised examination. 2. Left-sided pulmonary emboli as above. 3. There is diffuse patchy consolidation seen throughout both lungs, with dense airspace consolidation at the left lung base. The appearance is typical for pneumonia/aspiration pneumonitis. Clinical correlation will be required and radiographic follow-up to resolution is recommended. Follow-up x-rays should include both PA and lateral views 4. Mildly enlarged mediastinal and left hilar nodes are nonspecific and may be on a reactive basis. 5. Additional findings as above. Head CT No acute intracranial findings Chest x-ray IMPRESSION: Interval development of medial left basilar opacity. This may reflect pneumonia or atelectasis. Possible mild left perihilar opacity. Radiogra [facility] follow-up to ensure resolution is recommended. (1) Pulmonary embolism Acute cor pulmonale presence: without acute cor pulmonale Chronicity: acute Pulmonary embolism type: unspecified Qualified Code(s): I26.99 - Other pulmonary embolism without acute cor pulmonale
--- NOTE | 2020-07-09 09:46 | Ultrasound Report ---
BILATERAL LOWER EXTREMITY VENOUS DOPPLER CLINICAL HISTORY: Pulmonary emboli. COMPARISON STUDY: No previous studies for comparison. TECHNIQUE: Sonography of the deep venous system of the bilateral lower extremities was performed. Co mpression and augmentation were evaluated. FINDINGS: The bilateral common femoral, superficial femoral and popliteal veins were compressible. A ugmentation was normal. Flow was shown within the deep calf vessels. IMPRESSION: No evidence of deep venous thrombus within the bilateral lower extremities. ACT 112: Negative or not required by law. Electronically signed by: John Mosley M.D. 07/09/2020 9:45 AM
[2020-07-09] MEDS ORDERED: HEPARIN IV BOLUS 3,000 UNITS in SYRINGE 0 ML IV ONE (11:30)
[2020-07-09] MEDS: VITAMIN B COMPLEX TAB PO SCH (11:39)
[2020-07-09] MEDS: LACTOBACILLUS ACIDOPHILUS (FLORANEX) TAB PO SCH (11:39)
[2020-07-09] MEDS: CITALOPRAM 20 MG TAB PO SCH (11:39)
[2020-07-09] MEDS: MEMANTINE HCL 10 MG TAB PO SCH ×2 (11:39→20:52)
[2020-07-09] MEDS: ASPIRIN 81 MG ECTAB PO SCH (11:39)
[2020-07-09] MEDS: risperiDONE 2 MG TABLET PO SCH ×2 (11:39→20:52)
[2020-07-09] MEDS: MULTIVITAMIN TAB PO SCH (11:39)
[2020-07-09 12:00] LABS: BUN Creatinine Ratio 19.1 (10-20); Calcium 8.5 mg/dl (8.5-10.1); Creatinine Clr Calc Pharmacy 20.2 ml/min; Est GFR (African American) 44.8; Est GFR (Non-African American) 38.6; Potassium 3.4 mmol/L (3.5-5.1)
[2020-07-09 12:18] LABS: Troponin I 1.32 ng/ml (0-0.045)
[2020-07-09 15:49] LABS: iSTAT Arterial Blood Gas pCO2 48 mmHg (35-46); iSTAT Arterial Blood Gas pH 7.28 (7.35-7.45)
[2020-07-09 15:52] LABS: iSTAT Arterial Blood Gas HCO3 23 meg/L (19-24); iSTAT Arterial Blood Gas pO2 306 mmHg (80-95); iSTAT Carbon Dioxide 24 mmol/L (24-31)
[2020-07-09 15:53] LABS: iSTAT Sample Type Arterial
[2020-07-09] MEDS ORDERED: INSULIN ASPART 100 UNITS/ML 3 ML PEN SC SCH (16:30)
[2020-07-09 17:23] LABS: BUN Creatinine Ratio 19.1 (10-20); Calcium 8.9 mg/dl (8.5-10.1); Creatinine Clr Calc Pharmacy 21.7 ml/min; Est GFR (Non-African American) 42.3; Potassium 3.3 mmol/L (3.5-5.1)
[2020-07-09 18:31] LABS: Partial Thromboplastin Ratio 3.9
[2020-07-09 18:40] LABS: Partial Thromboplastin Time 107.9 Seconds (21.0-31.0)
[2020-07-09] MEDS ORDERED: Nursing to Pharmacy Communication SCH (19:00)
[2020-07-09] MEDS: D5W AND 1/4NSS + 20MEQ KCL 20 MEQ/1,000 ML BAG IV SCH (19:08)
[2020-07-09] MEDS: DOCUSATE SODIUM/SENNA 50/8.6MG TAB PO SCH (20:52)
--- NOTE | 2020-07-09 22:17 | Electrocardiogram Report ---
Test Reason : Blood Pressure : / mmHG Vent. Rate : 093 BPM Atrial Rate : 093 BPM P-R Int : 130 ms QRS Dur : 070 ms QT Int : 388 ms P-R-T Axes : 085 092 -34 degrees QTc Int : 482 ms Normal sinus rhythm Rightward axis Prolonged QT Abnormal ECG When compared with ECG of 28-MAY-2018 06:28, Vent. rate has increased BY 35 BPM Non-specific change in ST segment in Inferior leads ST now depressed in Anterolateral leads T wave inversion now evident in Anterolateral leads Confirmed by Dimitri Bob ([id number]) on 07/09/2020 10:17:16 PM [facility]erred [facility] Confirmed By:Dimitri Bob
--- NOTE | 2020-07-09 23:03 | Hospitalist Progress Note ---
Date of Service July 09, 2020 Assessment & Plan (1) Severe sepsis: Presented with leukocytosis and tachycardia associated with ELLIS/ATN and encephalopathy. Met criteria for severe sepsis per CMS guidelines. Blood cultures obtained. Received broad-spectrum antibiotic therapy with vancomycin, levofloxacin, piperacillin / tazobactam. Had one low BP in ED which may have been sporadic. Received fluid resuscitation. Possible sources = UTI and / or pneumonia. Nasal MRSA screen negative, so MRSA pneumonia very unlikely. Vancomycin discontinued. Continue piperacillin / tazobactam. (2) Urinary tract infection: Urine culture 07/05/20 grew pansensitive E coli. UTI, present on admission. Antibiotic management as discussed above. (3) Pneumonia: Admission chest x-ray and CT showed left lower lobe density consistent with pneumonia (present on admission). Consider aspiration pneumonia. Antibiotic management as discussed above. (4) Hypernatremia: Serum sodium 156 at time of admission. Recent labs: 03/23/20 = 143 07/03/20 = 148 Hypernatremia probably secondary to inadequate free water intake. Hypotonic IV fluids. Follow. (5) Acute kidney injury: Serum creatinine 1.6 at time of admission, compared to baseline of 0.93 in March 2020. Acute kidney injury, probably secondary to ATN +/- TMP/sulfa. Receiving IV fluids and antibiotics for sepsis. Creatinine today = 1.42. Follow. (6) Hypokalemia: Replace. Follow. (7) Elevated troponin level: Serum troponin 1.60 at time of admission. Unable to determine if chest pain present. EKG showed NSR with downsloping ST depression inferiorly and laterally. Echo did not show any segmental wall motion abnormalities. Acute PE as discussed below. Elevated troponin probably secondary to demand ischemia and/or acute pulmonary embolism. Possible non-STEMI. Troponins trending down. Continue ASA. (8) Pulmonary embolism: CTA chest demonstrated pulmonary embolism left main pulmonary artery. Venous duplex lower extremities negative. Acute pulmonary embolism, present on admission. Receiving IV heparin. Hemodynamically stable. Oxygenation improved. (9) Respiratory failure: O2 sats in ED 85% on RA. Required supplemental O2 + BiPAP. Acute hypoxic respiratory failure. Pulmonary embolism and pneumonia as noted above. Continue supplemental O2 as needed. (10) Encephalopathy: Very lethargic. CT head showed age-related atrophy and small vessel ischemic changes, no acute events. Suspect multifactorial toxic / metabolic encephalopathy (delirium) due to sepsis and/or hypernatremia. Management of underlying causes as outlined. (11) Hyperglycemia: Insulin coverage as needed. (12) Severe protein-calorie malnutrition: Weight 40.3 kg. BMI 16.8. Severe protein-calorie malnutrition. Consult Rail Car Operator when condition improves. (13) Dementia: Ongoing monitoring for delirium. (14) COVID-19 ruled out: SARS-CoV-2 PCR negative. (15) Do not resuscitate status: Per advance directives. (16) DVT prophylaxis: Receiving IV heparin for acute pulmonary embolism. (17) Discharge planning issues: Anticipated return to [facility] if her condition improves. Son visiting this morning and given update. Admission and Anticipated Discharge Date Admission Date: July 08, 2020 Subjective Recheck for multiple problems. Patient seen in their room around 0750. Son Dominic visiting. Admitted last night with multiple concerns- confusion, hypoxia, UTI, pneumonia, pulmonary embolism, ELLIS, hypernatremia. Remains very lethargic. Review of Systems: Unable to obtain due to pt's cognitive status. Physical Exam Constitutional: + ill appearing, + cachectic and + altered mental status Eyes: + anicteric sclerae Respiratory: no respiratory distress Auscultation: + rales (left base) Cardiovascular: Rate/Rhythm: regular rate and regular rhythm Vessels: no JVD Extremities: normal capillary refill; no calf tenderness and no edema Gastrointestinal (Abdomen): normal bowel sounds, soft, nontender, no hepatosplenomegaly Musculoskeletal: Head/Neck/Chest: neck supple Extremities: no cyanosis Skin: no rashes, warm and dry Psychiatric: Orientation: + not alert and + not oriented x 3 Genitourinary: + bladder abnormality (Meza cath) Results & Data Results & Data ([facility]) Vital Signs (Past 12 Hours) Vital Signs Temp Pulse Resp BP Pulse Ox 07/09/20 19:21 37.3 C 60 14 113/47 L 97 07/09/20 15:58 37.7 C H 62 14 125/59 L 96 Laboratory Results Laboratory Results - last 24 hr 07/08/20 07/08/20 07/09/20 08:49 20:49 05:13 WBC RBC Hgb Hct MCV MCH MCHC RDW Std Deviation RDW Coeff of Lakshmi Plt Count MPV Immature Gran % (Auto) Neut % (Auto) Lymph % (Auto) [place] % (Auto) Eos % (Auto) Baso % (Auto) Neut # (Auto) Lymph # (Auto) [place] # (Auto) Eos # (Auto) Baso # (Auto) Immature Gran # (Auto) APTT PTT Ratio Specimen Type Cancelled Arterial Sample Site Cancelled Patient Temperature Cancelled POC pH Cancelled 7.28 L POC pCO2 Cancelled 48 H POC pO2 Cancelled 306 H POC HCO3 Cancelled 23 POC Total CO2 Cancelled 24 POC Base Excess Cancelled -4.0 O2 Sat Pulse Oximetry Cancelled ABG pH (Temp Correct) Cancelled ABG pCO2 (Temp Corrct Cancelled POC ABG pO2 at Pt Temp Cancelled POC ABG O2 Sat Cancelled 100.0 H Bryan Test Cancelled Set Respiration Rate Cancelled O2 Delivery Device Cancelled POC O2 Rate Cancelled Minute Ventilation Cancelled Vent Mode Cancelled Vent Setting Cancelled Spontaneous Rate Cancelled FiO2 (liters per min) Cancelled POC FiO2 Cancelled Tidal Volume Cancelled Spontaneous Tidal Vol Cancelled End Tidal CO2 Cancelled PEEP Cancelled High PEEP Setting Cancelled Low PEEP Setting Cancelled Pressure Support Cancelled POC Pressure Suppt Cancelled Pressure Support Vent Cancelled Pressure High Cancelled Time High Cancelled Time Low Cancelled EPAP Cancelled IPAP Cancelled POC Blood Gas Comment Cancelled Sodium Potassium Chloride Carbon Dioxide Anion Gap BUN Creatinine Est Cr Clr Drug Dosing Est GFR ( Amer) Est GFR (Non-Af Amer) BUN/Creatinine Ratio Glucose POC Glucose Osmolality Calcium Magnesium Troponin I Urine Osmolality Ur Random Sodium Nasal Screen MRSA (PCR) Negative 07/09/20 07/09/20 07/09/20 05:19 05:19 06:27 WBC 16.38 H RBC 3.49 L Hgb 10.2 L Hct 33.3 L MCV 95.4 MCH 29.2 MCHC 30.6 L RDW Std Deviation 49.4 H RDW Coeff of Lakshmi 14.3 Plt Count 239 MPV 10.0 Immature Gran % (Auto) 0.3 Neut % (Auto) 92.6 Lymph % (Auto) 3.3 [place] % (Auto) 3.7 Eos % (Auto) 0.0 Baso % (Auto) 0.1 Neut # (Auto) 15.18 H Lymph # (Auto) 0.54 L [place] # (Auto) 0.60 H Eos # (Auto) 0.00 Baso # (Auto) 0.01 Immature Gran # (Auto) 0.05 H APTT 33.7 H PTT Ratio 1.2 Specimen Type Sample Site Patient Temperature POC pH POC pCO2 POC pO2 POC HCO3 POC Total CO2 POC Base Excess O2 Sat Pulse Oximetry ABG pH (Temp Correct) ABG pCO2 (Temp Corrct POC ABG pO2 at Pt Temp POC ABG O2 Sat Bryan Test Set Respiration Rate O2 Delivery Device POC O2 Rate Minute Ventilation Vent Mode Vent Setting Spontaneous Rate FiO2 (liters per min) POC FiO2 Tidal Volume Spontaneous Tidal Vol End Tidal CO2 PEEP High PEEP Setting Low PEEP Setting Pressure Support POC Pressure Suppt Pressure Support Vent Pressure High Time High Time Low EPAP IPAP POC Blood Gas Comment Sodium 153 H Potassium 3.6 Chloride 124 H Carbon Dioxide 25 Anion Gap 4.0 BUN 27 H Creatinine 1.42 H Est Cr Clr Drug Dosing 17.8 Est GFR ( Amer) 38.4 Est GFR (Non-Af Amer) 33.1 BUN/Creatinine Ratio 18.9 Glucose 236 H POC Glucose Osmolality Calcium 8.3 L Magnesium 2.2 Troponin I 0.752 H* Urine Osmolality Ur Random Sodium Nasal Screen MRSA (PCR) 07/09/20 07/09/20 07/09/20 08:06 08:06 11:19 WBC RBC Hgb Hct MCV MCH MCHC RDW Std Deviation RDW Coeff of Lakshmi Plt Count MPV Immature Gran % (Auto) Neut % (Auto) Lymph % (Auto) [place] % (Auto) Eos % (Auto) Baso % (Auto) Neut # (Auto) Lymph # (Auto) [place] # (Auto) Eos # (Auto) Baso # (Auto) Immature Gran # (Auto) APTT PTT Ratio Specimen Type Sample Site Patient Temperature POC pH POC pCO2 POC pO2 POC HCO3 POC Total CO2 POC Base Excess O2 Sat Pulse Oximetry ABG pH (Temp Correct) ABG pCO2 (Temp Corrct POC ABG pO2 at Pt Temp POC ABG O2 Sat Bryan Test Set Respiration Rate O2 Delivery Device POC O2 Rate Minute Ventilation Vent Mode Vent Setting Spontaneous Rate FiO2 (liters per min) POC FiO2 Tidal Volume Spontaneous Tidal Vol End Tidal CO2 PEEP High PEEP Setting Low PEEP Setting Pressure Support POC Pressure Suppt Pressure Support Vent Pressure High Time High Time Low EPAP IPAP POC Blood Gas Comment Sodium 154 H Potassium 3.4 L Chloride 123 H Carbon Dioxide 24 Anion Gap 7.0 BUN 24 H Creatinine 1.25 H Est Cr Clr Drug Dosing 20.2 Est GFR ( Amer) 44.8 Est GFR (Non-Af Amer) 38.6 BUN/Creatinine Ratio 19.1 Glucose 184 H POC Glucose Osmolality Calcium 8.5 Magnesium Troponin I 1.320 H* Urine Osmolality 808 H Ur Random Sodium 17 Nasal Screen MRSA (PCR) 07/09/20 07/09/20 07/09/20 11:19 16:48 17:59 WBC RBC Hgb Hct MCV MCH MCHC RDW Std Deviation RDW Coeff of Lakshmi Plt Count MPV Immature Gran % (Auto) Neut % (Auto) Lymph % (Auto) [place] % (Auto) Eos % (Auto) Baso % (Auto) Neut # (Auto) Lymph # (Auto) [place] # (Auto) Eos # (Auto) Baso # (Auto) Immature Gran # (Auto) APTT 107.9 H* PTT Ratio 3.9 Specimen Type Sample Site Patient Temperature POC pH POC pCO2 POC pO2 POC HCO3 POC Total CO2 POC Base Excess O2 Sat Pulse Oximetry ABG pH (Temp Correct) ABG pCO2 (Temp Corrct POC ABG pO2 at Pt Temp POC ABG O2 Sat Bryan Test Set Respiration Rate O2 Delivery Device POC O2 Rate Minute Ventilation Vent Mode Vent Setting Spontaneous Rate FiO2 (liters per min) POC FiO2 Tidal Volume Spontaneous Tidal Vol End Tidal CO2 PEEP High PEEP Setting Low PEEP Setting Pressure Support POC Pressure Suppt Pressure Support Vent Pressure High Time High Time Low EPAP IPAP POC Blood Gas Comment Sodium 153 H Potassium 3.3 L Chloride 123 H Carbon Dioxide 23 Anion Gap 7.0 BUN 22 H Creatinine 1.16 Est Cr Clr Drug Dosing 21.7 Est GFR ( Amer) 49.0 Est GFR (Non-Af Amer) 42.3 BUN/Creatinine Ratio 19.1 Glucose 150 H POC Glucose Osmolality 321 H Calcium 8.9 Magnesium Troponin I Urine Osmolality Ur Random Sodium Nasal Screen MRSA (PCR) (1) Respiratory failure Chronicity: acute Respiratory failure complication: unspecified whether with hypoxia or hypercapnia Qualified Code(s): J96.00 - Acute respiratory failure, unspecified whether with hypoxia or hypercapnia (2) Pneumonia Laterality: unspecified laterality Lung location: unspecified part of lung Pneumonia type: due to unspecified organism Qualified Code(s): J18.9 - Pneumonia, unspecified organism (3) Pulmonary embolism Acute cor pulmonale presence: without acute cor pulmonale Chronicity: acute Pulmonary embolism type: unspecified Qualified Code(s): I26.99 - Other pulmonary embolism without acute cor pulmonale
[2020-07-09 23:28] LABS: BUN Creatinine Ratio 19.6 (10-20); Calcium 8.5 mg/dl (8.5-10.1); Creatinine Clr Calc Pharmacy 22.9 ml/min; Est GFR (African American) 52.3; Est GFR (Non-African American) 45.1; Potassium 3.2 mmol/L (3.5-5.1)
[2020-07-09] MEDS: INSULIN ASPART 100 UNITS/ML 3 ML PEN SC SCH (23:43)
[2020-07-09] MEDS: POTASSIUM CHLORIDE / WTR 10 MEQ/100 ML PLCT IV SCH (23:50)
[2020-07-10] MEDS: POTASSIUM CHLORIDE / WTR 10 MEQ/100 ML PLCT IV SCH ×3 (00:50→11:52)
[2020-07-10 01:51] LABS: Partial Thromboplastin Ratio 2.2
[2020-07-10 01:53] LABS: Partial Thromboplastin Time 62.7 Seconds (21.0-31.0)
[2020-07-10] MEDS: D5W AND 1/4NSS + 20MEQ KCL 20 MEQ/1,000 ML BAG IV SCH (05:56)
[2020-07-10] MEDS: PIPERACILLIN/TAZOBACTAM 3.375 GM in DEXTROSE 5% 100 ML IV SCH ×3 (05:58→21:07)
[2020-07-10] MEDS: INSULIN ASPART 100 UNITS/ML 3 ML PEN SC SCH ×3 (06:02→18:05)
[2020-07-10 06:22] LABS: Hematocrit (blood only) 29.1 % (37-47); Hemoglobin 9.1 g/dL (12.0-16.0); Mean Corpuscular Hemoglobin 29.9 pg (25-34); Mean Corpuscular Hgb Conc 31.3 g/dL (32-36); Mean Corpuscular Volume 95.7 fL (80-100); Mean Platelet Volume 10.3 fL (7.4-10.4); Platelet Count 203 K/uL (130-400); RDW Coefficient of Variation 14.6 % (11.5-14.5); RDW Standard Deviation 51.1 fL (36.4-46.3); Red Blood Count 3.04 M/uL (4.2-5.4); White Blood Count 12.51 K/uL (4.8-10.8)
[2020-07-10 06:42] LABS: Partial Thromboplastin Ratio 1.9
[2020-07-10 06:48] LABS: Partial Thromboplastin Time 53.4 Seconds (21.0-31.0)
[2020-07-10 06:49] LABS: BUN Creatinine Ratio 21.1 (10-20); Calcium 8.7 mg/dl (8.5-10.1); Creatinine Clr Calc Pharmacy 29.3 ml/min; Est GFR (African American) 65.7; Est GFR (Non-African American) 56.7; Potassium 3.3 mmol/L (3.5-5.1)
[2020-07-10 06:52] LABS: Estimated Average Glucose 111 mg/dl; Hemoglobin A1C 5.5 % (4.5-5.6)
[2020-07-10] MEDS: VITAMIN B COMPLEX TAB PO SCH (09:11)
[2020-07-10] MEDS: risperiDONE 2 MG TABLET PO SCH ×2 (09:11→21:13)
[2020-07-10] MEDS: MEMANTINE HCL 10 MG TAB PO SCH ×2 (09:11→21:12)
[2020-07-10] MEDS: MULTIVITAMIN TAB PO SCH (09:11)
[2020-07-10] MEDS: ASPIRIN 81 MG ECTAB PO SCH (09:11)
[2020-07-10] MEDS: LACTOBACILLUS ACIDOPHILUS (FLORANEX) TAB PO SCH (09:11)
[2020-07-10] MEDS: CITALOPRAM 20 MG TAB PO SCH (09:11)
[2020-07-10] MEDS ORDERED: POTASSIUM CHLORIDE IV SCH (14:15)
[2020-07-10] MEDS ORDERED: D5W IV SCH (14:15)
[2020-07-10] MEDS ORDERED: [UNRECOGNIZED DRUG - OTHER] IV SCH (14:15)
[2020-07-10 16:45] LABS: BUN Creatinine Ratio 18.6 (10-20); Calcium 8.6 mg/dl (8.5-10.1); Creatinine Clr Calc Pharmacy 32.5 ml/min; Est GFR (African American) 74.6; Est GFR (Non-African American) 64.3; Potassium 3.7 mmol/L (3.5-5.1)
[2020-07-10] MEDS: HEPARIN SODIUM/DEXTROSE 25,000 UNITS/500 ML BAG IV SCH (21:09)
--- NOTE | 2020-07-10 21:09 | Hospitalist Progress Note ---
Date of Service July 10, 2020 Assessment & Plan (1) Severe sepsis: Presented with leukocytosis and tachycardia associated with ELLIS/ATN and encephalopathy. Met criteria for severe sepsis per CMS guidelines. Blood cultures obtained. Received broad-spectrum antibiotic therapy with vancomycin, levofloxacin, piperacillin / tazobactam. Lactate 1.5. Had one low BP in ED which may have been sporadic. Received fluid resuscitation. Possible sources = UTI and / or pneumonia. Nasal MRSA screen negative, so MRSA pneumonia very unlikely. Vancomycin discontinued. Blood cultures negative. Continue piperacillin / tazobactam to cover UTI and suspected aspiration pneumonia. (2) Urinary tract infection: Urine culture 07/05/20 grew pansensitive E coli. UTI, present on admission. Antibiotic management as discussed above. (3) Pneumonia: Admission chest x-ray and CT showed left lower lobe density consistent with pneumonia (present on admission). Consider aspiration pneumonia. Antibiotic management as discussed above. NPO. ASPHALT SPREADER OPERATOR eval if condition improves. (4) Hypernatremia: Serum sodium 156 at time of admission. Recent labs: 03/23/20 = 143 07/03/20 = 148 Hypernatremia probably secondary to inadequate free water intake. Receiving hypotonic IV fluids. Na today = 149. Follow. (5) Acute kidney injury: Serum creatinine 1.6 at time of admission, compared to baseline of 0.93 in March 2020. Acute kidney injury, probably secondary to ATN +/- TMP/sulfa. Receiving IV fluids and antibiotics for sepsis. Creatinine today = 0.91. Follow. (6) Hypokalemia: K as low as 3.2. Replace. K today = 3.3. Follow. (7) Elevated troponin level: Serum troponin 1.60 at time of admission. Unable to determine if chest pain present. EKG showed NSR with downsloping ST depression inferiorly and laterally. Echo did not show any segmental wall motion abnormalities. Acute PE as discussed below. Elevated troponin probably secondary to demand ischemia and/or acute pulmonary embolism. Possible non-STEMI. Troponins trending down. Continue ASA. (8) Pulmonary embolism: CTA chest demonstrated pulmonary embolism left main pulmonary artery. Venous duplex lower extremities negative. Acute pulmonary embolism, present on admission. Receiving IV heparin. Hemodynamically stable. Oxygenation improved. (9) Respiratory failure: O2 sats in ED 85% on RA. Required supplemental O2 + BiPAP. Acute hypoxic respiratory failure. Pulmonary embolism and pneumonia as noted above. Oxygenation imrpoved. Continue supplemental O2 as needed. (10) Encephalopathy: Very lethargic. CT head showed age-related atrophy and small vessel ischemic changes, no acute events. Suspect multifactorial toxic / metabolic encephalopathy (delirium) due to sepsis and/or hypernatremia. Management of underlying causes as outlined. (11) Hyperglycemia: Random glucose as high as 236. No history of DM. Hgb A1c = 5.5. Receiving insulin coverage as needed. Glucose this morning = 135. (12) Severe protein-calorie malnutrition: Weight 40.3 kg. BMI 16.8. Severe protein-calorie malnutrition. Consult Retail Sales Advisor when condition improves. (13) Dementia: Ongoing monitoring for delirium. (14) COVID-19 ruled out: SARS-CoV-2 PCR negative 07/09. (15) Do not resuscitate status: Per advance directives. (16) DVT prophylaxis: Receiving IV heparin for acute pulmonary embolism. (17) Discharge planning issues: Anticipated return to [facility] if her condition improves. Ming Alfaro given update by phone today. Admission and Anticipated Discharge Date Admission Date: July 08, 2020 Subjective Recheck for multiple problems. Patient seen in their room around 0940. Ming Alfaro visiting. No new concerns from nursing staff. Remains very lethargic. Unable to take oral meds. Review of Systems: Unable to obtain due to pt's cognitive status. Physical Exam Constitutional: + ill appearing, + cachectic and + altered mental status Eyes: + anicteric sclerae Respiratory: no respiratory distress Auscultation: + rales (left base) Cardiovascular: Rate/Rhythm: regular rate and regular rhythm Vessels: no JVD Extremities: normal capillary refill; no calf tenderness and no edema Gastrointestinal (Abdomen): normal bowel sounds, soft, nontender, no hepatosplenomegaly Musculoskeletal: Head/Neck/Chest: neck supple Extremities: no cyanosis Skin: no rashes, warm and dry Psychiatric: Orientation: + not alert and + not oriented x 3 Genitourinary: + bladder abnormality (Meza cath) Results & Data Results & Data ([facility]) Vital Signs (Past 12 Hours) Vital Signs Temp Pulse Pulse Resp BP Pulse Ox 07/10/20 19:39 37.1 C 71 16 131/36 L 94 07/10/20 15:53 37.2 C 54 L 18 128/57 L 94 07/10/20 13:56 48 L 07/10/20 10:57 36.9 C 63 18 152/63 H 96 Laboratory Results Laboratory Results - last 24 hr 07/09/20 07/09/20 07/10/20 22:50 23:38 01:03 WBC RBC Hgb Hct MCV MCH MCHC RDW Std Deviation RDW Coeff of Lakshmi Plt Count MPV APTT 62.7 H* PTT Ratio 2.2 Sodium 151 H Potassium 3.2 L Chloride 122 H Carbon Dioxide 23 Anion Gap 6.0 BUN 22 H Creatinine 1.10 Est Cr Clr Drug Dosing 22.9 Est GFR ( Amer) 52.3 Est GFR (Non-Af Amer) 45.1 BUN/Creatinine Ratio 19.6 Glucose 147 H POC Glucose 166 H Estimat Average Glucose Hemoglobin A1c Calcium 8.5 07/10/20 07/10/20 07/10/20 06:02 06:03 06:03 WBC 12.51 H RBC 3.04 L Hgb 9.1 L Hct 29.1 L MCV 95.7 MCH 29.9 MCHC 31.3 L RDW Std Deviation 51.1 H RDW Coeff of Lakshmi 14.6 H Plt Count 203 MPV 10.3 APTT 53.4 H* PTT Ratio 1.9 Sodium Potassium Chloride Carbon Dioxide Anion Gap BUN Creatinine Est Cr Clr Drug Dosing Est GFR ( Amer) Est GFR (Non-Af Amer) BUN/Creatinine Ratio Glucose POC Glucose 149 H Estimat Average Glucose Hemoglobin A1c Calcium 07/10/20 07/10/20 07/10/20 06:03 06:03 12:00 WBC RBC Hgb Hct MCV MCH MCHC RDW Std Deviation RDW Coeff of Lakshmi Plt Count MPV APTT PTT Ratio Sodium 149 H Potassium 3.3 L Chloride 120 H Carbon Dioxide 22 Anion Gap 7.0 BUN 19 H Creatinine 0.91 Est Cr Clr Drug Dosing 29.3 Est GFR ( Amer) 65.7 Est GFR (Non-Af Amer) 56.7 BUN/Creatinine Ratio 21.1 H Glucose 135 H POC Glucose 126 H Estimat Average Glucose 111 Hemoglobin A1c 5.5 Calcium 8.7 07/10/20 07/10/20 16:12 18:07 WBC RBC Hgb Hct MCV MCH MCHC RDW Std Deviation RDW Coeff of Lakshmi Plt Count MPV APTT PTT Ratio Sodium 143 Potassium 3.7 Chloride 115 H Carbon Dioxide 22 Anion Gap 6.0 BUN 15 Creatinine 0.82 Est Cr Clr Drug Dosing 32.5 Est GFR ( Amer) 74.6 Est GFR (Non-Af Amer) 64.3 BUN/Creatinine Ratio 18.6 Glucose 121 H POC Glucose 141 H Estimat Average Glucose Hemoglobin A1c Calcium 8.6 (1) Pneumonia Laterality: unspecified laterality Lung location: unspecified part of lung Pneumonia type: due to unspecified organism Qualified Code(s): J18.9 - Pneumonia, unspecified organism (2) Pulmonary embolism Acute cor pulmonale presence: without acute cor pulmonale Chronicity: acute Pulmonary embolism type: unspecified Qualified Code(s): I26.99 - Other pulmonary embolism without acute cor pulmonale (3) Respiratory failure Chronicity: acute Respiratory failure complication: unspecified whether with hypoxia or hypercapnia Qualified Code(s): J96.00 - Acute respiratory failure, unspecified whether with hypoxia or hypercapnia
[2020-07-10] MEDS: DOCUSATE SODIUM/SENNA 50/8.6MG TAB PO SCH (21:13)
[2020-07-10] MEDS: D5W AND 1/2NSS + 20MEQ KCL 20 MEQ/1,000 ML BAG IV SCH (21:24)
[2020-07-11] MEDS: INSULIN ASPART 100 UNITS/ML 3 ML PEN SC SCH ×4 (00:30→21:21)
[2020-07-11] MEDS: PIPERACILLIN/TAZOBACTAM 3.375 GM in DEXTROSE 5% 100 ML IV SCH ×3 (05:28→21:21)
[2020-07-11 06:15] LABS: Basophils # (auto) 0.01 K/uL (0-0.2); Basophils % (auto) 0.1 %; Eosinophils # (auto) 0.21 K/uL (0-0.5); Hematocrit (blood only) 30.8 % (37-47); Hemoglobin 9.9 g/dL (12.0-16.0); Immature Granulocytes # (auto) 0.03 K/uL (0.00-0.02); Immature Granulocytes % (auto) 0.3 %; Mean Corpuscular Hemoglobin 29.9 pg (25-34); Mean Corpuscular Hgb Conc 32.1 g/dL (32-36); Mean Corpuscular Volume 93.1 fL (80-100); Mean Platelet Volume 10.7 fL (7.4-10.4); Monocytes # (auto) 0.43 K/uL (0.11-0.59); Monocytes % (auto) 4.1 %; Neutrophils # (auto) 7.71 K/uL (1.4-6.5); Neutrophils % (auto) 73.5 %; Platelet Count 210 K/uL (130-400); RDW Standard Deviation 47.6 fL (36.4-46.3); Red Blood Count 3.31 M/uL (4.2-5.4); White Blood Count 10.49 K/uL (4.8-10.8)
[2020-07-11 06:23] LABS: Partial Thromboplastin Ratio 1.5; Partial Thromboplastin Time 40.9 Seconds (21.0-31.0)
[2020-07-11 07:16] LABS: Alanine Aminotransferase 12 U/L (12-78); Albumin Globulin Ratio 0.7 (0.9-2); Albumin Level 2.1 gm/dl (3.4-5.0); Alkaline Phosphatase 48 U/L (45-117); Aspartate Aminotransferase 14 U/L (15-37); Bilirubin Direct < 0.1 mg/dl (0-0.2); Bilirubin,Total 0.3 mg/dl (0.2-1); Blood Urea Nitrogen 10 mg/dl (7-18); Calcium 8.2 mg/dl (8.5-10.1); Carbon Dioxide 23 mmol/L (21-32); Chloride 114 mmol/L (98-107); Creatinine Clr Calc Pharmacy 39.7 ml/min; Est GFR (African American) 88.8; Est GFR (Non-African American) 76.6; Globulin 3.1 gm/dl (2.5-4.0); Glucose 108 mg/dl (70-99); Magnesium 1.7 mg/dl (1.8-2.4); Phosphorus 1.5 mg/dl (2.5-4.9); Potassium 3.5 mmol/L (3.5-5.1); Sodium 142 mmol/L (136-145); Total Protein 5.2 gm/dl (6.4-8.2)
[2020-07-11] MEDS ORDERED: HEPARIN IV BOLUS 3,000 UNITS in SYRINGE 0 ML IV ONE (08:00)
[2020-07-11] MEDS: CITALOPRAM 20 MG TAB PO SCH (09:00)
[2020-07-11] MEDS: MEMANTINE HCL 10 MG TAB PO SCH ×2 (09:00→21:21)
[2020-07-11] MEDS: VITAMIN B COMPLEX TAB PO SCH (09:00)
[2020-07-11] MEDS: ASPIRIN 81 MG ECTAB PO SCH (09:00)
[2020-07-11] MEDS: LACTOBACILLUS ACIDOPHILUS (FLORANEX) TAB PO SCH (09:00)
[2020-07-11] MEDS: risperiDONE 2 MG TABLET PO SCH ×2 (09:00→21:20)
[2020-07-11] MEDS: MULTIVITAMIN TAB PO SCH (09:00)
[2020-07-11] MEDS: D5W AND 1/2NSS + 20MEQ KCL 20 MEQ/1,000 ML BAG IV SCH (09:22)
[2020-07-11] MEDS ORDERED: POTASSIUM PHOS 3 MMOL/1 ML INFUSION IV ONE (14:24)
[2020-07-11] MEDS ORDERED: POTASSIUM PHOSPHATE 21 MMOL in SODIUM CHLORIDE 0.9% 500 ML IV ONE (14:45)
[2020-07-11 14:59] LABS: Partial Thromboplastin Ratio 2.5
[2020-07-11 15:18] LABS: Partial Thromboplastin Time 69.1 Seconds (21.0-31.0)
[2020-07-11] MEDS ORDERED: Nursing to Pharmacy Communication SCH (17:45)
--- NOTE | 2020-07-11 20:31 | Hospitalist Progress Note ---
Date of Service July 11, 2020 Assessment & Plan (1) Severe sepsis: Presented with leukocytosis and tachycardia associated with ELLIS/ATN and encephalopathy. Met criteria for severe sepsis per CMS guidelines. Blood cultures obtained. Received broad-spectrum antibiotic therapy with vancomycin, levofloxacin, piperacillin / tazobactam. Lactate 1.5. Had one low BP in ED which may have been sporadic. Received fluid resuscitation. Possible sources = UTI and / or pneumonia. Nasal MRSA screen negative, so MRSA pneumonia very unlikely. Vancomycin discontinued. Blood cultures negative. Continue piperacillin / tazobactam to cover UTI and suspected aspiration pneumonia. (2) Urinary tract infection: Urine culture 07/05/20 grew pansensitive E coli. UTI, present on admission. Antibiotic management as discussed above. (3) Pneumonia: Admission chest x-ray and CT showed left lower lobe density consistent with pneumonia (present on admission). Consider aspiration pneumonia. Antibiotic management as discussed above. (4) Hypernatremia: Serum sodium 156 at time of admission. Recent labs: 03/23/20 = 143 07/03/20 = 148 Hypernatremia probably secondary to inadequate free water intake. Receiving hypotonic IV fluids. Na today = 142. Follow. (5) Acute kidney injury: Serum creatinine 1.6 at time of admission, compared to baseline of 0.93 in March 2020. Acute kidney injury, probably secondary to ATN +/- TMP/sulfa. Receiving IV fluids and antibiotics for sepsis. Creatinine today = 0.71. Follow. (6) Hypokalemia: K as low as 3.2. Replace. K today = 3.5. Follow. (7) Elevated troponin level: Serum troponin 1.60 at time of admission. Unable to determine if chest pain present. EKG showed NSR with downsloping ST depression inferiorly and laterally. Echo did not show any segmental wall motion abnormalities. Acute PE as discussed below. Elevated troponin probably secondary to demand ischemia and/or acute pulmonary embolism. Possible non-STEMI. Troponins trended down. Continue ASA. (8) Pulmonary embolism: CTA chest demonstrated pulmonary embolism left main pulmonary artery. Venous duplex lower extremities negative. Acute pulmonary embolism, present on admission. Receiving IV heparin. Hemodynamically stable. Oxygenation improved. (9) Respiratory failure: O2 sats in ED 85% on RA. Required supplemental O2 + BiPAP. Acute hypoxic respiratory failure. Pulmonary embolism and pneumonia as noted above. Oxygenation imrpoved. Continue supplemental O2 as needed. (10) Encephalopathy: Very lethargic at time of admission. CT head showed age-related atrophy and small vessel ischemic changes, no acute events. Suspect multifactorial toxic / metabolic encephalopathy (delirium) due to sepsis and/or hypernatremia. Management of underlying causes as outlined. More alert today. (11) Hyperglycemia: Random glucose as high as 236. No history of DM. Hgb A1c = 5.5. Receiving insulin coverage as needed. Glucose this morning = 108. (12) Severe protein-calorie malnutrition: Weight 40.3 kg. BMI 16.8. Severe protein-calorie malnutrition. Consult [employer] when condition improves. (13) Dementia: History of dementia, felt to be Alzheimer's. Has cogwheel rigidity. ? Parkinson's disease vs Parkinsonian disorder. Consider Lewy body dementia. Try to discontinue risperidone. Ongoing monitoring for delirium. (14) COVID-19 ruled out: SARS-CoV-2 PCR negative 07/09. (15) Do not resuscitate status: Per advance directives. (16) DVT prophylaxis: Receiving IV heparin for acute pulmonary embolism. (17) Discharge planning issues: Anticipated return to [facility] if her condition improves. Family visiting and given update. Admission and Anticipated Discharge Date Admission Date: July 08, 2020 Subjective Recheck for multiple problems. Patient seen in their room around 0940. Family visiting. More alert. Makes eye contact. Answers some questions with short responses. Confused. Appears to be comfortable. No new concerns reported by nursing staff. Review of Systems: Unable to obtain due to pt's cognitive status. Physical Exam Constitutional: + ill appearing, + cachectic and + altered mental status Eyes: + anicteric sclerae Respiratory: no respiratory distress Auscultation: + rales (left base) Cardiovascular: Rate/Rhythm: regular rate and regular rhythm Vessels: no JVD Extremities: normal capillary refill; no calf tenderness and no edema Gastrointestinal (Abdomen): normal bowel sounds, soft, nontender, no hepatosplenomegaly Musculoskeletal: Head/Neck/Chest: neck supple Extremities: no cyanosis Skin: no rashes, warm and dry Neurologic: Motor/Sensory: + tremor (upper extremities) and + abnormal movement (cogwheel rigidity upper extremities) Psychiatric: Orientation: + not alert and + not oriented x 3 Genitourinary: + bladder abnormality (Meza cath) Results & Data Results & Data ([facility]) Vital Signs (Past 12 Hours) Vital Signs Temp Pulse Resp BP Pulse Ox 07/11/20 19:34 37.2 C 92 H 20 160/69 H 95 07/11/20 15:28 36.9 C 53 L 18 113/57 L 97 07/11/20 11:35 36.7 C 75 19 157/63 H 94 Laboratory Results Laboratory Results - last 24 hr 07/11/20 07/11/20 07/11/20 00:04 05:58 05:58 WBC 10.49 RBC 3.31 L Hgb 9.9 L Hct 30.8 L MCV 93.1 MCH 29.9 MCHC 32.1 RDW Std Deviation 47.6 H RDW Coeff of Lakshmi 14.0 Plt Count 210 MPV 10.7 H Immature Gran % (Auto) 0.3 Neut % (Auto) 73.5 Lymph % (Auto) 20.0 Emmet % (Auto) 4.1 Eos % (Auto) 2.0 Baso % (Auto) 0.1 Neut # (Auto) 7.71 H Lymph # (Auto) 2.10 Emmet # (Auto) 0.43 Eos # (Auto) 0.21 Baso # (Auto) 0.01 Immature Gran # (Auto) 0.03 H APTT PTT Ratio Sodium 142 Potassium 3.5 Chloride 114 H Carbon Dioxide 23 Anion Gap 5.0 BUN 10 D Creatinine 0.71 Est Cr Clr Drug Dosing 39.7 Est GFR ( Amer) 88.8 Est GFR (Non-Af Amer) 76.6 BUN/Creatinine Ratio 14.0 Glucose 108 H POC Glucose 128 H Calcium 8.2 L Phosphorus 1.5 L* Magnesium 1.7 L Total Bilirubin 0.3 Direct Bilirubin < 0.1 AST 14 L ALT 12 Alkaline Phosphatase 48 Total Protein 5.2 L Albumin 2.1 L Globulin 3.1 Albumin/Globulin Ratio 0.7 L 07/11/20 07/11/20 07/11/20 05:58 05:58 11:33 WBC RBC Hgb Hct MCV MCH MCHC RDW Std Deviation RDW Coeff of Lakshmi Plt Count MPV Immature Gran % (Auto) Neut % (Auto) Lymph % (Auto) Emmet % (Auto) Eos % (Auto) Baso % (Auto) Neut # (Auto) Lymph # (Auto) Emmet # (Auto) Eos # (Auto) Baso # (Auto) Immature Gran # (Auto) APTT 40.9 H PTT Ratio 1.5 Sodium Potassium Chloride Carbon Dioxide Anion Gap BUN Creatinine Est Cr Clr Drug Dosing Est GFR ( Amer) Est GFR (Non-Af Amer) BUN/Creatinine Ratio Glucose POC Glucose 120 H 148 H Calcium Phosphorus Magnesium Total Bilirubin Direct Bilirubin AST ALT Alkaline Phosphatase Total Protein Albumin Globulin Albumin/Globulin Ratio 07/11/20 07/11/20 07/11/20 14:30 16:41 19:57 WBC RBC Hgb Hct MCV MCH MCHC RDW Std Deviation RDW Coeff of Lakshmi Plt Count MPV Immature Gran % (Auto) Neut % (Auto) Lymph % (Auto) Emmet % (Auto) Eos % (Auto) Baso % (Auto) Neut # (Auto) Lymph # (Auto) Emmet # (Auto) Eos # (Auto) Baso # (Auto) Immature Gran # (Auto) APTT 69.1 H* PTT Ratio 2.5 Sodium Potassium Chloride Carbon Dioxide Anion Gap BUN Creatinine Est Cr Clr Drug Dosing Est GFR ( Amer) Est GFR (Non-Af Amer) BUN/Creatinine Ratio Glucose POC Glucose 103 H 112 H Calcium Phosphorus Magnesium Total Bilirubin Direct Bilirubin AST ALT Alkaline Phosphatase Total Protein Albumin Globulin Albumin/Globulin Ratio (1) Pneumonia Laterality: unspecified laterality Lung location: unspecified part of lung Pneumonia type: due to unspecified organism Qualified Code(s): J18.9 - Pneumonia, unspecified organism (2) Pulmonary embolism Acute cor pulmonale presence: without acute cor pulmonale Chronicity: acute Pulmonary embolism type: unspecified Qualified Code(s): I26.99 - Other pulmonary embolism without acute cor pulmonale (3) Respiratory failure Chronicity: acute Respiratory failure complication: unspecified whether with hypoxia or hypercapnia Qualified Code(s): J96.00 - Acute respiratory failure, unspecified whether with hypoxia or hypercapnia
[2020-07-11] MEDS: DOCUSATE SODIUM/SENNA 50/8.6MG TAB PO SCH (21:21)
[2020-07-12] MEDS: PIPERACILLIN/TAZOBACTAM 3.375 GM in DEXTROSE 5% 100 ML IV SCH ×3 (04:30→20:50)
[2020-07-12 07:05] LABS: Hematocrit (blood only) 32.2 % (37-47); Hemoglobin 10.8 g/dL (12.0-16.0); Mean Corpuscular Hemoglobin 30.6 pg (25-34); Mean Corpuscular Hgb Conc 33.5 g/dL (32-36); Mean Corpuscular Volume 91.2 fL (80-100); Mean Platelet Volume 10.8 fL (7.4-10.4); Platelet Count 258 K/uL (130-400); RDW Coefficient of Variation 13.8 % (11.5-14.5); RDW Standard Deviation 45.9 fL (36.4-46.3); Red Blood Count 3.53 M/uL (4.2-5.4); White Blood Count 8.84 K/uL (4.8-10.8)
[2020-07-12 07:12] LABS: Partial Thromboplastin Ratio 1.4; Partial Thromboplastin Time 39.4 Seconds (21.0-31.0)
[2020-07-12 07:29] LABS: Calcium 8.5 mg/dl (8.5-10.1); Creatinine Clr Calc Pharmacy 35.3 ml/min; Est GFR (African American) 79.2; Est GFR (Non-African American) 68.4; Magnesium 1.7 mg/dl (1.8-2.4); Potassium 3.3 mmol/L (3.5-5.1)
[2020-07-12] MEDS: INSULIN ASPART 100 UNITS/ML 3 ML PEN SC SCH ×4 (08:00→23:25)
[2020-07-12] MEDS: D5W AND 1/2NSS + 20MEQ KCL 20 MEQ/1,000 ML BAG IV SCH ×2 (10:13)
[2020-07-12] MEDS: HEPARIN SODIUM/DEXTROSE 25,000 UNITS/500 ML BAG IV SCH ×2 (10:27→10:31)
[2020-07-12] MEDS: POTASSIUM CHLORIDE / WTR 10 MEQ/100 ML PLCT IV SCH ×2 (10:27→12:55)
[2020-07-12] MEDS: CITALOPRAM 20 MG TAB PO SCH (10:28)
[2020-07-12] MEDS: LACTOBACILLUS ACIDOPHILUS (FLORANEX) TAB PO SCH (10:28)
[2020-07-12] MEDS: VITAMIN B COMPLEX TAB PO SCH (10:28)
[2020-07-12] MEDS: ASPIRIN 81 MG ECTAB PO SCH (10:29)
[2020-07-12] MEDS: MEMANTINE HCL 10 MG TAB PO SCH ×2 (10:29→20:49)
[2020-07-12] MEDS: MULTIVITAMIN TAB PO SCH (10:29)
[2020-07-12] MEDS ORDERED: HEPARIN IV BOLUS 3,000 UNITS in SYRINGE 0 ML IV ONE ×2 (10:45→19:45)
[2020-07-12 19:29] LABS: Partial Thromboplastin Ratio 1.4; Partial Thromboplastin Time 38.4 Seconds (21.0-31.0)
[2020-07-12] MEDS: DOCUSATE SODIUM/SENNA 50/8.6MG TAB PO SCH (21:00)
--- NOTE | 2020-07-12 21:10 | Hospitalist Progress Note ---
Date of Service July 12, 2020 Assessment & Plan (1) Severe sepsis: Presented with leukocytosis and tachycardia associated with ELLIS/ATN and encephalopathy. Met criteria for severe sepsis per CMS guidelines. Blood cultures obtained. Received broad-spectrum antibiotic therapy with vancomycin, levofloxacin, piperacillin / tazobactam. Lactate 1.5. Had one low BP in ED which may have been sporadic. Received fluid resuscitation. Possible sources = UTI and / or pneumonia. Nasal MRSA screen negative, so MRSA pneumonia very unlikely. Vancomycin discontinued. Blood cultures negative. Continue piperacillin / tazobactam to cover UTI and suspected aspiration pneumonia. (2) Urinary tract infection: Urine culture 07/05/20 grew pansensitive E coli. UTI, present on admission. Antibiotic management as discussed above. (3) Pneumonia: Admission chest x-ray and CT showed left lower lobe density consistent with pneumonia (present on admission). Consider aspiration pneumonia. Antibiotic management as discussed above. (4) Hypernatremia: Serum sodium 156 at time of admission. Recent labs: 03/23/20 = 143 07/03/20 = 148 Hypernatremia probably secondary to inadequate free water intake. Receiving hypotonic IV fluids. Na today = 141. Follow. (5) Acute kidney injury: Serum creatinine 1.6 at time of admission, compared to baseline of 0.93 in March 2020. Acute kidney injury, probably secondary to ATN +/- TMP/sulfa. Receiving IV fluids and antibiotics for sepsis. Creatinine today = 0.78. Follow. (6) Hypokalemia: K as low as 3.2. Replace. K today = 3.3. Follow. (7) Elevated troponin level: Serum troponin 1.60 at time of admission. Unable to determine if chest pain present. EKG showed NSR with downsloping ST depression inferiorly and laterally. Echo did not show any segmental wall motion abnormalities. Acute PE as discussed below. Elevated troponin probably secondary to demand ischemia and/or acute pulmonary embolism. Possible non-STEMI. Troponins trended down. Continue ASA. (8) Pulmonary embolism: CTA chest demonstrated pulmonary embolism left main pulmonary artery. Venous duplex lower extremities negative. Acute pulmonary embolism, present on admission. Receiving IV heparin. Hemodynamically stable. Oxygenation improved. Eventual transition to oral anticoagulant- ? warfarin, ? apixaban with reduced dose per age & wt. Different risk factors for VTE, including age, immobility, megestrol therapy. DC megestrol. (9) Respiratory failure: O2 sats in ED 85% on RA. Required supplemental O2 + BiPAP. Acute hypoxic respiratory failure. Pulmonary embolism and pneumonia as noted above. Oxygenation imrpoved. Continue supplemental O2 as needed. (10) Encephalopathy: Very lethargic at time of admission. CT head showed age-related atrophy and small vessel ischemic changes, no acute events. Suspect multifactorial toxic / metabolic encephalopathy (delirium) due to sepsis and/or hypernatremia. Management of underlying causes as outlined. Now more alert. (11) Hyperglycemia: Random glucose as high as 236. No history of DM. Hgb A1c = 5.5. Receiving insulin coverage as needed. Glucose this morning = 116. (12) Severe protein-calorie malnutrition: Weight 40.3 kg. BMI 16.8. Severe protein-calorie malnutrition. Seen by [employer]. 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 Has been receiving risperidone for some time because of severe agitation at intermediate. Has cogwheel rigidity. ? Parkinson's disease vs Parkinsonian disorder. Consider Lewy body dementia (meets several criteria, but difficult to say with certainty). Risperidone dose decreased from 2 mg BID to 1 mg BID; try to taper every few days as tolerated. Ongoing monitoring for delirium. (14) Depression: Mirtazapine recently discontinued. Reduce citalopram from 30 to 20 mg daily to reduce risk of side effects. (15) Aspiration into airway: [facility] did bedside swallowing evaluation today and were concerned about aspiration. Hold diet. Aspiration precautions. Ongoing management per [facility]. (16) COVID-19 ruled out: SARS-CoV-2 PCR negative 07/09. (17) Do not resuscitate status: Per advance directives. (18) DVT prophylaxis: Receiving IV heparin for acute pulmonary embolism. (19) Discharge planning issues: Anticipated return to [facility] if her condition improves. Ming Alfaro (POA) given update this evening by phone. Admission and Anticipated Discharge Date Admission Date: July 08, 2020 Subjective Recheck for multiple problems. Patient seen in their room around 0930. More alert. Trying to talk, but difficulty to understand. Family reports that this is the most interactive that she has been for a while. No fever. Loose stool this morning x 1. Still has Meza catheter. Seen by [facility]- they were concerned about signs of aspiration. Review of Systems: Unable to obtain due to pt's cognitive status. Physical Exam Constitutional: + cachectic; no acute distress Eyes: + anicteric sclerae Respiratory: no respiratory distress Auscultation: + rales (left base) Cardiovascular: Rate/Rhythm: regular rate and regular rhythm Vessels: no JVD Extremities: normal capillary refill; no calf tenderness and no edema Gastrointestinal (Abdomen): normal bowel sounds, soft, nontender, no hepatosplenomegaly Musculoskeletal: Head/Neck/Chest: neck supple Extremities: no cyanosis Skin: no rashes, warm and dry Neurologic: Motor/Sensory: + tremor (hands) and + abnormal movement (cogwheel rigidity upper extremities) Psychiatric: Orientation: + not alert and + not oriented x 3 Genitourinary: + bladder abnormality (Meza cath) Results & Data Results & Data ([facility]) Vital Signs (Past 12 Hours) Vital Signs Temp Pulse Resp BP Pulse Ox 07/12/20 18:58 36.8 C 97 H 18 135/70 96 07/12/20 16:38 36.4 C L 68 17 145/66 H 97 07/12/20 11:26 37.0 C 73 18 122/58 L 96 07/12/20 06:27 07/12/20 06:27 (1) Pneumonia Laterality: unspecified laterality Lung location: unspecified part of lung Pneumonia type: due to unspecified organism Qualified Code(s): J18.9 - Pneumonia, unspecified organism (2) Pulmonary embolism Acute cor pulmonale presence: without acute cor pulmonale Chronicity: acute Pulmonary embolism type: unspecified Qualified Code(s): I26.99 - Other pulmonary embolism without acute cor pulmonale (3) Respiratory failure Chronicity: acute Respiratory failure complication: unspecified whether with hypoxia or hypercapnia Qualified Code(s): J96.00 - Acute respiratory failure, unspecified whether with hypoxia or hypercapnia
[2020-07-13 02:35] LABS: Partial Thromboplastin Ratio 2.9
[2020-07-13 02:44] LABS: Partial Thromboplastin Time 81.2 Seconds (21.0-31.0)
[2020-07-13] MEDS: D5W AND 1/2NSS + 20MEQ KCL 20 MEQ/1,000 ML BAG IV SCH ×2 (02:47→19:38)
[2020-07-13 06:51] LABS: Hematocrit (blood only) 34.3 % (37-47); Hemoglobin 11.2 g/dL (12.0-16.0); Mean Corpuscular Hemoglobin 30.1 pg (25-34); Mean Corpuscular Hgb Conc 32.7 g/dL (32-36); Mean Corpuscular Volume 92.2 fL (80-100); Mean Platelet Volume 10.6 fL (7.4-10.4); Platelet Count 286 K/uL (130-400); RDW Coefficient of Variation 13.9 % (11.5-14.5); RDW Standard Deviation 46.5 fL (36.4-46.3); Red Blood Count 3.72 M/uL (4.2-5.4)
[2020-07-13 07:17] LABS: Partial Thromboplastin Time 56.4 Seconds (21.0-31.0)
[2020-07-13 07:18] LABS: Calcium 8.8 mg/dl (8.5-10.1); Creatinine Clr Calc Pharmacy 34.3 ml/min; Est GFR (African American) 75.7; Est GFR (Non-African American) 65.3; Potassium 3.7 mmol/L (3.5-5.1)
[2020-07-13] MEDS: PIPERACILLIN/TAZOBACTAM 3.375 GM in DEXTROSE 5% 100 ML IV SCH ×3 (08:16→21:03)
[2020-07-13] MEDS: INSULIN ASPART 100 UNITS/ML 3 ML PEN SC SCH ×3 (08:17→18:43)
[2020-07-13] MEDS: CITALOPRAM 20 MG TAB PO SCH (10:47)
[2020-07-13] MEDS: ASPIRIN 81 MG ECTAB PO SCH (10:48)
[2020-07-13] MEDS: MULTIVITAMIN TAB PO SCH (10:48)
[2020-07-13] MEDS: LACTOBACILLUS ACIDOPHILUS (FLORANEX) TAB PO SCH (10:48)
[2020-07-13] MEDS: VITAMIN B COMPLEX TAB PO SCH (10:48)
[2020-07-13] MEDS: MEMANTINE HCL 10 MG TAB PO SCH ×2 (10:48→19:38)
--- NOTE | 2020-07-13 16:55 | Hospitalist Progress Note ---
Date of Service July 13, 2020 Assessment & Plan (1) Severe sepsis: Severe sepsis Sources: UTI/Pneumonia Suspected aspiration pneumonia Urine Cx from 07/05:E.Coli Blood culture: No growth to date Received broad-spectrum antibiotics--vancomycin, levofloxacin, piperacillin / tazobactam. Lactate 1.5. Nasal MRSA screen negative Received IV fluids Continue Zosyn (2) Urinary tract infection: Urine culture 07/05/20: E coli. UTI-POA On IV Zosyn as above (3) Pneumonia: Suspected aspiration pneumonia --Chest CTA:Left-sided pulmonary emboli as above. There is diffuse patchy consolidation seen throughout both lungs, with dense airspace consolidation at the left lung base. The appearance is typical for pneumonia/aspiration pneumonitis. Clinical correlation will be required and radiographic follow-up to resolution is recommended. Follow-up x-rays should include both PA and lateral views. Mildly enlarged mediastinal and left hilar nodes are nonspecific and may be on a reactive basis. --IV antibiotics as above --Aspiration precautions (4) Hypernatremia: Serum sodium 156 at time of admission. Hypernatremia probably secondary to inadequate free water intake. Sodium 142 today Continue IV fluids Monitor sodium levels Appreciate nephrology input (5) Acute kidney injury: Cr:1.6>>1.25>>0.81 probably secondary to ATN +/- TMP/sulfa. Monitor renal function IV fluids (6) Hypokalemia: Replete electrolytes as needed Monitor (7) Elevated troponin level: Troponin 1.60 on admission: Likely demand ischemia in setting of acute pulmonary embolism Unable to determine if chest pain present. EKG showed NSR with downsloping ST depression inferiorly and laterally. Echo did not show any segmental wall motion abnormalities. Can not R/O Non-STEMI. Troponin trended down. Continue ASA (8) Pulmonary embolism: Acute pulmonary embolism CTA chest as above Venous doppler:No evidence of deep venous thrombus within the bilateral lower extremities. On IV heparin Plan to transition to Eliquis as able (9) Respiratory failure: Acute hypoxic respiratory failure Sats 85% on RA on presentation Secondary to acute PE, pneumonia Currently saturating well on room air (10) Encephalopathy: Remains lethargic mostly CT head showed age-related atrophy and small vessel ischemic changes, no acute e vents. Possibly multifactorial: Toxic/metabolic encephalopathy in setting of sepsis, hypernatremia, dementia Not at baseline as per family Monitor (11) Hyperglycemia: Random glucose as high as 236. No history of DM. Hgb A1c: 5.5. Receiving insulin coverage as needed. Monitor BGs (12) Severe protein-calorie malnutrition: BMI 16.8. Severe protein-calorie malnutrition. Telephoner consulted (13) Dementia: H/O Dementia Continue Buddy Is on Risperidone due to severe agitation at fdc Titrate Risperidone down and discontinue as able Celexa decreased from 20 to 10 mg daily Megestrol discontinued (14) Depression: Mirtazapine recently discontinued. Reduce citalopram as above (15) Aspiration into airway: Speech eval Aspiration precautions. (16) COVID-19 ruled out: SARS-CoV-2 PCR negative on 07/09/20 (17) Do not resuscitate status: DNR/DNI (18) DVT prophylaxis: On IV heparin (19) Discharge planning issues: Plan to discharge back to [facility] as able Admission and Anticipated Discharge Date Admission Date: July 08, 2020 Subjective Patient is seen and examined at bedside Lethargic this morning Unable to provide any history On IV heparin--No bleeding issues per RN Discussed with patient's son in detail at bedside Did not take morning medications Review of Systems Review of Systems: All systems reviewed & are unremarkable except as noted in HPI & below Physical Exam Physical Exam: Physical Exam: Vitals signs as noted above General Appearance: Thin, frail, Lethargic Head: normocephalic, Atraumatic Eyes: normal inspection Neck: supple, Trachea midline Respiratory/Chest: Decreased breath sounds, CTA Cardiovascular: S1, S2, No murmur Abdomen/GI:Soft, Non tender, Bowel sounds present Extremities/Musculoskelatal:normal inspection, no edema Neurologic/Psych: Lethargic, could not perform neurological exam Skin: normal color, warm Results & Data Results & Data ([facility]) Vital Signs (Past 12 Hours) Vital Signs Temp Pulse Pulse Resp BP Pulse Ox 07/13/20 15:46 37 C 54 L 20 130/57 L 96 07/13/20 11:24 36.9 C 64 17 140/53 L 95 07/13/20 07:21 36.9 C 83 17 137/58 L 94 Laboratory Results Short CBC 07/13/20 Range/Units 06:36 WBC 8.10 (4.8-10.8) K/uL Hgb 11.2 L (12.0-16.0) g/dL Hct 34.3 L (37-47) % Plt Count 286 (130-400) K/uL [facility] 07/13/20 06:36 Sodium 142 Potassium 3.7 Chloride 113 H Carbon Dioxide 25 BUN 4 L Creatinine 0.81 Glucose 114 H Calcium 8.8 (1) Pneumonia Laterality: unspecified laterality Lung location: unspecified part of lung Pneumonia type: due to unspecified organism Qualified Code(s): J18.9 - Pneumonia, unspecified organism (2) Pulmonary embolism Acute cor pulmonale presence: without acute cor pulmonale Chronicity: acute Pulmonary embolism type: unspecified Qualified Code(s): I26.99 - Other pulmonary embolism without acute cor pulmonale (3) Respiratory failure Chronicity: acute Respiratory failure complication: unspecified whether with hypoxia or hypercapnia Qualified Code(s): J96.00 - Acute respiratory failure, unspecified whether with hypoxia or hypercapnia
[2020-07-13] MEDS: DOCUSATE SODIUM/SENNA 50/8.6MG TAB PO SCH (19:39)
[2020-07-13] MEDS: HEPARIN SODIUM/DEXTROSE 25,000 UNITS/500 ML BAG IV SCH (23:37)
[2020-07-14] MEDS: INSULIN ASPART 100 UNITS/ML 3 ML PEN SC SCH ×4 (00:24→19:14)
[2020-07-14] MEDS: HEPARIN SODIUM/DEXTROSE 25,000 UNITS/500 ML BAG IV SCH (00:58)
[2020-07-14] MEDS: PIPERACILLIN/TAZOBACTAM 3.375 GM in DEXTROSE 5% 100 ML IV SCH ×3 (06:15→22:18)
[2020-07-14 06:57] LABS: Partial Thromboplastin Ratio 2.2
[2020-07-14 07:13] LABS: BUN Creatinine Ratio 5.3 (10-20); Calcium 8.8 mg/dl (8.5-10.1); Creatinine Clr Calc Pharmacy 32.3 ml/min; Est GFR (African American) 72.4; Est GFR (Non-African American) 62.5; Potassium 3.7 mmol/L (3.5-5.1)
[2020-07-14 07:58] LABS: Partial Thromboplastin Time 61.6 Seconds (21.0-31.0)
[2020-07-14] MEDS ORDERED: INFLUENZA ADMINISTRATION CHARGE ONE (08:00)
[2020-07-14] MEDS: ASPIRIN 81 MG ECTAB PO SCH (09:52)
[2020-07-14] MEDS: LACTOBACILLUS ACIDOPHILUS (FLORANEX) TAB PO SCH (09:52)
[2020-07-14] MEDS: MEMANTINE HCL 10 MG TAB PO SCH ×2 (09:52→19:05)
[2020-07-14] MEDS: CITALOPRAM 20 MG TAB PO SCH (09:52)
[2020-07-14] MEDS: MULTIVITAMIN TAB PO SCH (09:52)
[2020-07-14] MEDS: VITAMIN B COMPLEX TAB PO SCH (09:53)
[2020-07-14] MEDS: D5W AND 1/2NSS + 20MEQ KCL 20 MEQ/1,000 ML BAG IV SCH (14:21)
--- NOTE | 2020-07-14 16:42 | Hospitalist Progress Note ---
Date of Service July 14, 2020 Assessment & Plan (1) Severe sepsis: Severe sepsis Sources: UTI/Pneumonia Suspected aspiration pneumonia Urine Cx from 07/05:E.Coli Repeat urine culture negative Blood culture: No growth Received broad-spectrum antibiotics--vancomycin, levofloxacin, piperacillin / tazobactam. Lactate 1.5. Nasal MRSA screen negative Received IV fluids Continue Zosyn to complete 7 day course (2) Urinary tract infection: Urine culture 07/05/20: E coli. UTI-POA On IV Zosyn as above (3) Pneumonia: Suspected aspiration pneumonia --Chest CTA:Left-sided pulmonary emboli as above. There is diffuse patchy consolidation seen throughout both lungs, with dense airspace consolidation at the left lung base. The appearance is typical for pneumonia/aspiration pneumonitis. Clinical correlation will be required and radiographic follow-up to resolution is recommended. Follow-up x-rays should include both PA and lateral views. Mildly enlarged mediastinal and left hilar nodes are nonspecific and may be on a reactive basis. --IV antibiotics as above --Aspiration precautions --NPO for now given lethargy --Palliative care consulted to address goals of care (4) Hypernatremia: Serum sodium 156 at time of admission. Hypernatremia probably secondary to inadequate free water intake. Sodium 144 today Continue IV fluids while NPO Monitor sodium levels Appreciate nephrology input (5) Acute kidney injury: Cr:1.6>>1.25>>0.84 probably secondary to ATN +/- TMP/sulfa. Monitor renal function IV fluids (6) Hypokalemia: Replete electrolytes as needed Monitor (7) Elevated troponin level: Troponin 1.60 on admission: Likely demand ischemia in setting of acute pulmonary embolism Unable to determine if chest pain present. EKG showed NSR with downsloping ST depression inferiorly and laterally. Echo did not show any segmental wall motion abnormalities. Can not R/O Non-STEMI. Troponin trended down. Continue ASA (8) Pulmonary embolism: Acute pulmonary embolism CTA chest as above Venous doppler:No evidence of deep venous thrombus within the bilateral lower extremities. On IV heparin Plan to transition to Eliquis as able (9) Respiratory failure: Acute hypoxic respiratory failure Sats 85% on RA on presentation Secondary to acute PE, pneumonia Currently saturating well on room air (10) Encephalopathy: Remains lethargic mostly CT head showed age-related atrophy and small vessel ischemic changes, no acute events. Possibly multifactorial: Toxic/metabolic encephalopathy in setting of sepsis, hypernatremia, dementia Not at baseline as per family Mental status not improved to baseline (11) Hyperglycemia: Random glucose as high as 236. No history of DM. Hgb A1c: 5.5. Receiving insulin coverage as needed. Monitor BGs (12) Severe protein-calorie malnutrition: BMI 16.8. Severe protein-calorie malnutrition. Cost Recovery Technician consulted (13) Dementia: H/O Dementia Continue Buddy Is on Risperidone due to severe agitation at intermediate Titrate Risperidone down and discontinue as able Celexa decreased from 20 to 10 mg daily Megestrol discontinued (14) Depression: Mirtazapine recently discontinued. Reduce citalopram as above (15) Aspiration into airway: Speech eval Aspiration precautions. (16) COVID-19 ruled out: SARS-CoV-2 PCR negative on 07/09/20 (17) Do not resuscitate status: DNR/DNI (18) DVT prophylaxis: On IV heparin (19) Discharge planning issues: Plan to discharge back to [facility] as able Admission and Anticipated Discharge Date Admission Date: July 08, 2020 Subjective Patient is seen and examined at bedside Unable to obtain any history Remains lethargic mostly Clinically no significant change from yesterday On IV heparin--No bleeding issues Review of Systems Review of Systems: Other Physical Exam Physical Exam: Physical Exam: Vitals signs as noted above General Appearance: Thin, frail, Lethargic Head: normocephalic, Atraumatic Eyes: normal inspection Neck: supple, Trachea midline Respiratory/Chest: Decreased breath sounds, CTA Cardiovascular: S1, S2, No murmur Abdomen/GI:Soft, Non tender, Bowel sounds present Extremities/Musculoskelatal:normal inspection, no edema Neurologic/Psych: Lethargic, could not perform neurological exam Skin: normal color, warm Results & Data Results & Data ([facility]) Vital Signs (Past 12 Hours) Vital Signs Temp Pulse Pulse Resp BP Pulse Ox 07/14/20 15:57 36.8 C 76 18 163/62 H 94 07/14/20 11:00 37.1 C 48 L 18 128/52 L 90 07/14/20 07:46 36.8 C 64 18 148/55 H 94 07/14/20 07:[address] [facility] 07/14/20 06:18 Sodium 144 Potassium 3.7 Chloride 113 H Carbon Dioxide 26 BUN 4 L Creatinine 0.84 Glucose 119 H Calcium 8.8 (1) Pneumonia Laterality: unspecified laterality Lung location: unspecified part of lung Pneumonia type: due to unspecified organism Qualified Code(s): J18.9 - Pneumonia, unspecified organism (2) Pulmonary embolism Acute cor pulmonale presence: without acute cor pulmonale Chronicity: acute Pulmonary embolism type: unspecified Qualified Code(s): I26.99 - Other pulmonary embolism without acute cor pulmonale (3) Respiratory failure Chronicity: acute Respiratory failure complication: unspecified whether with hypoxia or hypercapnia Qualified Code(s): J96.00 - Acute respiratory failure, unspecified whether with hypoxia or hypercapnia
[2020-07-14] MEDS: DOCUSATE SODIUM/SENNA 50/8.6MG TAB PO SCH (19:06)
[2020-07-15] MEDS: INSULIN ASPART 100 UNITS/ML 3 ML PEN SC SCH ×4 (00:46→19:17)
[2020-07-15] MEDS: PIPERACILLIN/TAZOBACTAM 3.375 GM in DEXTROSE 5% 100 ML IV SCH ×3 (06:02→21:59)
[2020-07-15] MEDS ORDERED: Nursing to Pharmacy Communication SCH (06:15)
[2020-07-15 06:59] LABS: Hematocrit (blood only) 35.9 % (37-47); Hemoglobin 11.8 g/dL (12.0-16.0); Mean Corpuscular Hemoglobin 30.3 pg (25-34); Mean Corpuscular Hgb Conc 32.9 g/dL (32-36); Mean Corpuscular Volume 92.3 fL (80-100); Mean Platelet Volume 9.8 fL (7.4-10.4); Platelet Count 422 K/uL (130-400); RDW Coefficient of Variation 14.1 % (11.5-14.5); RDW Standard Deviation 46.7 fL (36.4-46.3); Red Blood Count 3.89 M/uL (4.2-5.4); White Blood Count 7.51 K/uL (4.8-10.8)
[2020-07-15 07:25] LABS: BUN Creatinine Ratio 4.3 (10-20); Calcium 9.1 mg/dl (8.5-10.1); Creatinine Clr Calc Pharmacy 34.4 ml/min; Est GFR (African American) 69.4; Est GFR (Non-African American) 59.9; Potassium 3.9 mmol/L (3.5-5.1)
[2020-07-15] MEDS ORDERED: INFLUENZA VACCINE HIGH DOSE 65+ 0.5 ML SYR IM ONE (08:00)
[2020-07-15] MEDS: CITALOPRAM 20 MG TAB PO SCH (09:09)
[2020-07-15] MEDS: VITAMIN B COMPLEX TAB PO SCH (09:10)
[2020-07-15] MEDS: MEMANTINE HCL 10 MG TAB PO SCH ×2 (09:10→20:58)
[2020-07-15] MEDS: ASPIRIN 81 MG ECTAB PO SCH (09:10)
[2020-07-15] MEDS: MULTIVITAMIN TAB PO SCH (09:10)
[2020-07-15] MEDS: LACTOBACILLUS ACIDOPHILUS (FLORANEX) TAB PO SCH (09:11)
[2020-07-15] MEDS: D5W AND 1/2NSS + 20MEQ KCL 20 MEQ/1,000 ML BAG IV SCH (09:23)
--- NOTE | 2020-07-15 14:54 | Palliative Care Consultation ---
Date of Consultation July 15, 2020 Assessment & Plan (1) Goals of care, counseling/discussion: Patient is an 85-year-old female with a history of dementia-suspected to be Lewy body per her son, who is residing at the [facility]. Patient was sent to [facility] on 07/08 for acute onset of increased respiratory distress, hypoxia and altered mental status. Past medical history is also significant for dysphasia, history of depression and psychosis. Patient was treated with IV antibiotics patient did require BiPAP and high flow nasal cannula-has now been weaned to room air with O2 sats 99%. Patient was started on IV antibiotics for suspected aspiration pneumonia as well as a positive urine culture for E. coli obtained at [facility] prior to admission. Patient also had a chest CT that showed a left upper lobe PE, lower extremity Dopplers were negative for DVT -she was started on IV heparin. Head CT did not show any acute issues-was positive for global atrophy. Patient had an elevated white count of 18.14 on admission, sodium 156 and a creatinine of 1.6. Patient also received IV fluids for dehydration. -Goals of care-current CODE STATUS is DNR/DNI. Discussed with patient's son at length by phone, her continued decline, hospice has been discussed while patient at the [facility] prior to this admission. Dominic is going to talk to his 3 brothers regarding goals of care as patient is likely to have recurrent dehydration as well as aspiration due to her dysphasia and dementia. -Son is concerned about having patient return to the [facility] as she would be quarantined in an area where there may be COVID positive patient's- will need assist from case management -Dementia-son reports that she is suspected to have Lewy body dementia as she has "on" and "off" periods, and hallucinations.-Patient is currently on Namenda as well as Risperdal and Celexa -Acute PE-patient currently on heparin, further AC as per attending team -Dysphasia with aspiration-patient has been on thickened liquids in the past, had improved and was tolerating thin liquids at the facility. Seen by CLINICAL SERVICES MANAGER- recommending pured diet and nectar thick liquids. -UTI-patient has completed treatment, repeat urine culture negative -Dehydration-due to poor p.o. intake. Discussed with son that this can be a recurrent cycle seen in dementia. (2) Dementia: (3) Pulmonary embolism: Acute cor pulmonale presence: without acute cor pulmonale Chronicity: acute Pulmonary embolism type: unspecified Qualified Code(s): I26.99 - Other pulmonary embolism without acute cor pulmonale (4) Dysphasia: (5) Urinary tract infection: (6) Dehydration: History of Present Illness Reason for Consultation: Address goals of care Requesting Physician: Dr. Del Rio Attending Physician: Jack Del Rio MD History of Present Illness Chart reviewed, patient seen and examined in room 281-no family at bedside. Spoke with patient's son/POA-Dominic Tjabz-[phone]. Patient is an 85-year-old female with a history of dementia-suspected to be Lewy body per her son, who is residing at the [facility]. Patient was sent to [facility] on 07/08 for acute onset of increased respiratory distress, hypoxia and altered mental status. Past medical history is also significant for dysphasia, history of depression and psychosis. Patient was treated with IV antibiotics patient did require BiPAP and high flow nasal cannula-has now been weaned to room air with O2 sats 99%. Patient was started on IV antibiotics for suspected aspiration pneumonia as well as a positive urine culture for E. coli obtained at [facility] prior to admission. Patient also had a chest CT that showed a left upper lobe PE, lower extremity Dopplers were negative for DVT -she was started on IV heparin. Head CT did not show any acute issues-was positive for global atrophy. Patient had an elevated white count of 18.14 on admission, sodium 156 and a creatinine of 1.6. Patient also received IV fluids for dehydration. -Goals of care-current CODE STATUS is DNR/DNI. Discussed with patient's son at length by phone, her continued decline, hospice has been discussed while patient at the [facility] prior to this admission. Dominic is going to talk to his 3 brothers regarding goals of care as patient is likely to have recurrent dehydration as well as aspiration due to her dysphasia and dementia. -Dementia-son reports that she is suspected to have Lewy body dementia as she has "on" and "off" periods, and hallucinations.-Patient is currently on Namenda as well as Risperdal and Celexa -Acute PE-patient currently on heparin, further AC as per attending team -Dysphasia with aspiration-patient has been on thickened liquids in the past, had improved and was tolerating thin liquids at the facility. Seen by CLINICAL SERVICES MANAGER- recommending pured diet and nectar thick liquids. -UTI-patient has completed treatment, repeat urine culture negative -Dehydration-due to poor p.o. intake. Discussed with son that this can be a recurrent cycle seen in dementia. Allergies Allergy/AdvReac Type Severity Reaction Status Date / Time No Known Allergies Allergy Verified 07/08/20 23:05 Home Medications Home Medications Medication Instructions Recorded Confirmed Type acetaminophen 650 mg PO Q6 PRN 07/08/20 07/08/20 History acetaminophen [Tylenol] 650 mg PO BID 07/08/20 07/08/20 History aspirin [Aspir-81] 81 mg PO DAILY 07/08/20 07/08/20 History bisacodyl [Dulcolax (bisacodyl)] 10 mg AL Q6 PRN 07/08/20 07/08/20 History cholecalciferol (vitamin D3) 4,000 unit PO DAILY 07/08/20 07/08/20 History [Vitamin D3] citalopram [Celexa] 20 mg PO DAILY 07/08/20 07/09/20 History lactobacillus combination no.4 0 mmu cells PO DAILY 07/08/20 07/08/20 History [Probiotic] lanolin [id number]-sf-[id number].pet-ceres 1 applic TOPICAL [facility] 07/08/20 07/08/20 History [Eucerin] magnesium hydroxide [Milk of 30 ml PO UD PRN 07/08/20 07/08/20 History Magnesia] megestrol 400 mg PO DAILY 07/08/20 07/08/20 History memantine 10 mg PO BID 07/08/20 07/08/20 History multivitamin 1 tab PO DAILY 07/08/20 07/08/20 History polyvinyl alcohol [Artificial 1 drp OPB BID PRN 07/08/20 07/08/20 History Tears (polyvin alc)] risperidone 2 mg PO BID 07/08/20 07/08/20 History sennosides-docusate sodium [Senna 1 tab-cap PO HS 07/08/20 07/08/20 History Plus] sulfamethoxazole-trimethoprim 1 tab PO BID 07/08/20 07/08/20 History [Bactrim DS] vitamin B complex-folic acid 0 tab PO DAILY 07/08/20 07/08/20 History Patient History Medical History CKD (chronic kidney disease) stage 3, GFR 30-59 ml/min Dementia Depression DJD (degenerative joint disease) of cervical spine Do not resuscitate status Lumbago Thyroid disease Surgical History History of cataract surgery Social History Smoking Status: Never smoker Cigarettes Per Day: unable to obtain; Communication Ability: Impaired marital status: Unknown Current Living Situation: Care Home How many Children do You have: 4 Feels Safe at Home: Declines to Answer Assistive Devices: None Assistive Devices Comment: unable to obtain Review of Systems Review of Systems: Unobtainable due to cognitive status Physical Exam Physical Exam: PE: Patient did not respond to voice or touch HEENT: Dry mucous membranes Respirations: Unlabored, no rhonchi or wheezes CV: Regular rate, no edema Abdomen: Soft, no grimace with palpation Extremities: Thin and cachectic Neuro: Did not respond to voice or touch Results & Data ([facility]) Vital Signs (Past 12 Hours) Vital Signs Temp Pulse Pulse Pulse Resp BP BP 07/15/20 14:51 97.9 F 56 L 20 119/56 L 07/15/20 11:04 98.1 F 69 17 134/66 07/15/20 07:34 59 L 07/15/20 07:11 97.7 F 70 19 166/84 H 07/15/20 03:00 97.9 F 61 16 149/54 H Pulse Ox 07/15/20 14:51 99 07/15/20 11:04 96 07/15/20 07:34 07/15/20 07:11 94 07/15/20 03:00 95 PG Care Time/CCT Total # of Minutes Spent Total Time Spent with Patient: Total time spent 85 minutes with greater than 50% of the time spent at bedside assessing patient's current status, discussing goals of care and treatment options with son by phone. Coding Level of Care Code 43313 Inpt Consult Level 3 Diagnoses Goals of care, counseling/discussion Z71.89 Dementia F03.90 Pulmonary embolism I26.99 Acute cor pulmonale presence: without acute cor pulmonale Chronicity: acute Pulmonary embolism type: unspecified Dysphasia R47.02 Urinary tract infection N39.0 Dehydration E86.0 Time Spent (min) 85
[2020-07-15] MEDS: HEPARIN SODIUM/DEXTROSE 25,000 UNITS/500 ML BAG IV SCH (17:24)
[2020-07-15] MEDS: DOCUSATE SODIUM/SENNA 50/8.6MG TAB PO SCH (20:58)
--- NOTE | 2020-07-15 21:19 | Hospitalist Progress Note ---
Date of Service July 15, 2020 Assessment & Plan (1) Severe sepsis: Severe sepsis Sources: UTI/Pneumonia Suspected aspiration pneumonia Urine Cx from 07/05:E.Coli Repeat urine culture negative Blood culture: No growth Received broad-spectrum antibiotics--vancomycin, levofloxacin, piperacillin / tazobactam. Lactate 1.5. Nasal MRSA screen negative Received IV fluids To complete 7 day course of IV antibiotics tomorrow (2) Urinary tract infection: Urine culture 07/05/20: E coli. UTI-POA On IV Zosyn as above (3) Pneumonia: Suspected aspiration pneumonia --Chest CTA:Left-sided pulmonary emboli as above. There is diffuse patchy consolidation seen throughout both lungs, with dense airspace consolidation at the left lung base. The appearance is typical for pneumonia/aspiration pneumonitis. Clinical correlation will be required and radiographic follow-up to resolution is recommended. Follow-up x-rays should include both PA and lateral views. Mildly enlarged mediastinal and left hilar nodes are nonspecific and may be on a reactive basis. --IV antibiotics as above --Aspiration precautions --Advance diet as tolerated --Palliative care on board (4) Hypernatremia: Serum sodium 156 at time of admission. Hypernatremia probably secondary to inadequate free water intake. Sodium 141 today Continue gentle IV fluids till oral intake improves Monitor sodium levels Appreciate nephrology input (5) Acute kidney injury: Cr:1.6>>1.25>>0.8 probably secondary to ATN +/- TMP/sulfa. Monitor renal function IV fluids (6) Hypokalemia: Replete electrolytes as needed Monitor (7) Elevated troponin level: Troponin 1.60 on admission: Likely demand ischemia in setting of acute pulmonary embolism Unable to determine if chest pain present. EKG showed NSR with downsloping ST depression inferiorly and laterally. Echo did not show any segmental wall motion abnormalities. Can not R/O Non-STEMI. Troponin trended down. Continue ASA (8) Pulmonary embolism: Acute pulmonary embolism CTA chest as above Venous doppler:No evidence of deep venous thrombus within the bilateral lower extremities. On IV heparin Plan to transition to Eliquis as able (9) Respiratory failure: Acute hypoxic respiratory failure Sats 85% on RA on presentation Secondary to acute PE, pneumonia Saturating well on room air (10) Encephalopathy: Remains lethargic mostly CT head showed age-related atrophy and small vessel ischemic changes, no acute events. Possibly multifactorial: Toxic/metabolic encephalopathy in setting of sepsis, hypernatremia, dementia Not at baseline as per family Mental status slowly improving (11) Hyperglycemia: Random glucose as high as 236. No history of DM. Hgb A1c: 5.5. Receiving insulin coverage as needed. Monitor BGs (12) Severe protein-calorie malnutrition: BMI 16.8. Severe protein-calorie malnutrition. Celery Tier consulted (13) Dementia: H/O Dementia Continue Nameelpidio Is on Risperidone due to severe agitation at custodial Titrate Risperidone down and discontinue as able Celexa decreased from 20 to 10 mg daily Megestrol discontinued (14) Depression: Mirtazapine recently discontinued. Reduce citalopram as above (15) Aspiration into airway: Speech eval Aspiration precautions. (16) COVID-19 ruled out: SARS-CoV-2 PCR negative on 07/09/20 (17) Do not resuscitate status: DNR/DNI (18) DVT prophylaxis: On IV heparin (19) Discharge planning issues: Plan to discharge back to [facility] as able Admission and Anticipated Discharge Date Admission Date: July 08, 2020 Subjective Patient is seen and examined at bedside More alert, awake today Tries to follow simple commands Discussed with patient's son over the phone She was able to swallow pills this morning Plan to advance diet as able On IV heparin--No bleeding issues Review of Systems Review of Systems: All systems reviewed & are unremarkable except as noted in HPI & below Physical Exam Physical Exam: Physical Exam: Vitals signs as noted above General Appearance: Thin, frail Head: normocephalic, Atraumatic Eyes: normal inspection Neck: supple, Trachea midline Respiratory/Chest: Decreased breath sounds, CTA Cardiovascular: S1, S2, No murmur Abdomen/GI:Soft, Non tender, Bowel sounds present Extremities/Musculoskelatal:normal inspection, no edema Neurologic/Psych: could not perform neurological exam, follows very simple commands, Mostly Nonverbal Skin: normal color, warm Results & Data Results & Data ([facility]) Vital Signs (Past 12 Hours) Vital Signs Temp Pulse Pulse Pulse Resp BP BP 07/15/20 19:39 36.2 C L 84 18 157/75 H 07/15/20 19:11 54 L 07/15/20 14:51 36.6 C 56 L 20 119/56 L 07/15/20 11:04 36.7 C 69 17 134/66 Pulse Ox 07/15/20 19:39 97 07/15/20 19:11 07/15/20 14:51 99 07/15/20 11:04 96 Laboratory Results Short CBC 07/15/20 Range/Units 06:24 WBC 7.51 (4.8-10.8) K/uL Hgb 11.8 L (12.0-16.0) g/dL Hct 35.9 L (37-47) % Plt Count 422 H (130-400) K/uL BMP 07/15/20 06:24 Sodium 141 Potassium 3.9 Chloride 110 H Carbon Dioxide 26 BUN 4 L Creatinine 0.87 Glucose 117 H Calcium 9.1 (1) Pneumonia Laterality: unspecified laterality Lung location: unspecified part of lung Pneumonia type: due to unspecified organism Qualified Code(s): J18.9 - Pneumonia, unspecified organism (2) Pulmonary embolism Acute cor pulmonale presence: without acute cor pulmonale Chronicity: acute Pulmonary embolism type: unspecified Qualified Code(s): I26.99 - Other pulmonary embolism without acute cor pulmonale (3) Respiratory failure Chronicity: acute Respiratory failure complication: unspecified whether with hypoxia or hypercapnia Qualified Code(s): J96.00 - Acute respiratory failure, unspecified whether with hypoxia or hypercapnia
[2020-07-16] MEDS: INSULIN ASPART 100 UNITS/ML 3 ML PEN SC SCH ×4 (00:15→18:03)
[2020-07-16] MEDS: HEPARIN SODIUM/DEXTROSE 25,000 UNITS/500 ML BAG IV SCH ×2 (01:08→08:41)
[2020-07-16] MEDS: D5W AND 1/2NSS + 20MEQ KCL 20 MEQ/1,000 ML BAG IV SCH ×2 (04:12→23:50)
[2020-07-16] MEDS: CITALOPRAM 20 MG TAB PO SCH (07:45)
[2020-07-16] MEDS: LACTOBACILLUS ACIDOPHILUS (FLORANEX) TAB PO SCH (07:46)
[2020-07-16] MEDS: ASPIRIN 81 MG ECTAB PO SCH (07:46)
[2020-07-16] MEDS: MULTIVITAMIN TAB PO SCH (07:47)
[2020-07-16] MEDS: MEMANTINE HCL 10 MG TAB PO SCH ×2 (07:48→20:23)
[2020-07-16] MEDS: VITAMIN B COMPLEX TAB PO SCH (07:48)
[2020-07-16 08:03] LABS: Partial Thromboplastin Ratio 2.5
[2020-07-16 08:08] LABS: Partial Thromboplastin Time 70.9 Seconds (21.0-31.0)
[2020-07-16 08:11] LABS: BUN Creatinine Ratio 4.7 (10-20); Calcium 9.2 mg/dl (8.5-10.1); Creatinine Clr Calc Pharmacy 31.2 ml/min; Est GFR (African American) 61.6; Est GFR (Non-African American) 53.2; Potassium 3.8 mmol/L (3.5-5.1)
[2020-07-16] MEDS: APIXABAN 5 MG TABLET PO SCH ×2 (11:07→20:23)
[2020-07-16 14:51] LABS: Partial Thromboplastin Ratio 1.5; Partial Thromboplastin Time 42.9 Seconds (21.0-31.0)
--- NOTE | 2020-07-16 18:51 | Hospitalist Progress Note ---
Date of Service July 16, 2020 Assessment & Plan (1) Severe sepsis: Severe sepsis Sources: UTI/Pneumonia Suspected aspiration pneumonia Urine Cx from 07/05:E.Coli Repeat urine culture negative Blood culture: No growth Received broad-spectrum antibiotics--vancomycin, levofloxacin, piperacillin / tazobactam. Lactate 1.5. Nasal MRSA screen negative Received IV fluids Completed 7 day course of IV Zosyn Afebrile (2) Urinary tract infection: Urine culture 07/05/20: E coli. UTI-POA Received IV Zosyn (3) Pneumonia: Suspected aspiration pneumonia --Chest CTA:Left-sided pulmonary emboli as above. There is diffuse patchy consolidation seen throughout both lungs, with dense airspace consolidation at the left lung base. The appearance is typical for pneumonia/aspiration pneumonitis. Clinical correlation will be required and radiographic follow-up to resolution is recommended. Follow-up x-rays should include both PA and lateral views. Mildly enlarged mediastinal and left hilar nodes are nonspecific and may be on a reactive basis. --Completed IV antibiotic course --Aspiration precautions --Advance diet as tolerated --Palliative care on board (4) Hypernatremia: Serum sodium 156 at time of admission. Hypernatremia probably secondary to inadequate free water intake. Continue gentle IV fluids till oral intake improves Monitor sodium levels Appreciate nephrology input Sodium level 142 today (5) Acute kidney injury: Cr:1.6>>1.25>>0.96 probably secondary to ATN +/- TMP/sulfa. Monitor renal function DC IV fluids when oral intake improves (6) Hypokalemia: Replete electrolytes as needed Monitor (7) Elevated troponin level: Troponin 1.60 on admission: Likely demand ischemia in setting of acute pulmonary embolism Unable to determine if chest pain present. EKG showed NSR with downsloping ST depression inferiorly and laterally. Echo did not show any segmental wall motion abnormalities. Can not R/O Non-STEMI. Troponin trended down. Continue ASA (8) Pulmonary embolism: Acute pulmonary embolism CTA chest as above Venous doppler:No evidence of deep venous thrombus within the bilateral lower extremities. On IV heparin transition to Eliquis (9) Respiratory failure: Acute hypoxic respiratory failure Sats 85% on RA on presentation Secondary to acute PE, pneumonia Saturating well on room air (10) Encephalopathy: Remains lethargic mostly CT head showed age-related atrophy and small vessel ischemic changes, no acute events. Possibly multifactorial: Toxic/metabolic encephalopathy in setting of sepsis, hypernatremia, dementia Not at baseline as per family Mental status slowly improved (11) Hyperglycemia: Random glucose as high as 236. No history of DM. Hgb A1c: 5.5. Receiving insulin coverage as needed. Monitor BGs (12) Severe protein-calorie malnutrition: BMI 16.8. Severe protein-calorie malnutrition. Housing Specialist consulted (13) Dementia: H/O Dementia Continue Namenda Is on Risperidone due to severe agitation at assisted Titrate Risperidone down and discontinue as able Celexa decreased from 20 to 10 mg daily Megestrol discontinued (14) Depression: Mirtazapine recently discontinued. Reduce citalopram as above (15) Aspiration into airway: Speech eval Aspiration precautions. (16) COVID-19 ruled out: SARS-CoV-2 PCR negative on 07/09/20 (17) Do not resuscitate status: DNR/DNI (18) DVT prophylaxis: Eliquis (19) Discharge planning issues: Plan to discharge back to [facility] when arranged Admission and Anticipated Discharge Date Admission Date: July 08, 2020 Subjective Patient is seen and examined at bedside Could not obtain any history as nonverbal mostly Alert, awake during my encounter No specific complaints as per RN IV heparin transition to Eliquis Review of Systems Review of Systems: Unobtainable due to cognitive status Physical Exam Physical Exam: Physical Exam: Vitals signs as noted above General Appearance: Thin, frail Head: normocephalic, Atraumatic Eyes: normal inspection Neck: supple, Trachea midline Respiratory/Chest: Decreased breath sounds, CTA Cardiovascular: S1, S2, No murmur Abdomen/GI:Soft, Non tender, Bowel sounds present Extremities/Musculoskelatal:normal inspection, no edema Neurologic/Psych: could not perform neurological exam, follows very simple commands, Mostly Nonverbal Skin: normal color, warm Results & Data Results & Data ([facility]) Vital Signs (Past 12 Hours) Vital Signs Temp Pulse Pulse Resp BP Pulse Ox 07/16/20 15:45 36.4 C L 72 17 149/84 H 95 07/16/20 07:40 36.3 C L 72 16 139/61 96 (1) Pneumonia Laterality: unspecified laterality Lung location: unspecified part of lung Pneumonia type: due to unspecified organism Qualified Code(s): J18.9 - Pneumonia, unspecified organism (2) Pulmonary embolism Acute cor pulmonale presence: without acute cor pulmonale Chronicity: acute Pulmonary embolism type: unspecified Qualified Code(s): I26.99 - Other pulmonary embolism without acute cor pulmonale (3) Respiratory failure Chronicity: acute Respiratory failure complication: unspecified whether with hypoxia or hypercapnia Qualified Code(s): J96.00 - Acute respiratory failure, unspecified whether with hypoxia or hypercapnia
[2020-07-16] MEDS: DOCUSATE SODIUM/SENNA 50/8.6MG TAB PO SCH (20:23)
[2020-07-17] MEDS: INSULIN ASPART 100 UNITS/ML 3 ML PEN SC SCH ×4 (00:41→17:25)
[2020-07-17 07:13] LABS: Hematocrit (blood only) 33.4 % (37-47); Mean Corpuscular Hemoglobin 30.3 pg (25-34); Mean Corpuscular Hgb Conc 32.9 g/dL (32-36); Mean Platelet Volume 9.3 fL (7.4-10.4); Platelet Count 485 K/uL (130-400); RDW Coefficient of Variation 14.1 % (11.5-14.5); RDW Standard Deviation 46.2 fL (36.4-46.3); Red Blood Count 3.63 M/uL (4.2-5.4); White Blood Count 7.93 K/uL (4.8-10.8)
[2020-07-17 07:30] LABS: Calcium 9.1 mg/dl (8.5-10.1); Creatinine Clr Calc Pharmacy 38.8 ml/min; Est GFR (African American) 80.5; Est GFR (Non-African American) 69.4; Potassium 3.8 mmol/L (3.5-5.1)
[2020-07-17] MEDS: CITALOPRAM 20 MG TAB PO SCH (09:43)
[2020-07-17] MEDS: VITAMIN B COMPLEX TAB PO SCH (09:43)
[2020-07-17] MEDS: MEMANTINE HCL 10 MG TAB PO SCH ×2 (09:43→20:41)
[2020-07-17] MEDS: MULTIVITAMIN TAB PO SCH (09:43)
[2020-07-17] MEDS: LACTOBACILLUS ACIDOPHILUS (FLORANEX) TAB PO SCH (09:43)
[2020-07-17] MEDS: ASPIRIN 81 MG ECTAB PO SCH (09:44)
[2020-07-17] MEDS: APIXABAN 5 MG TABLET PO SCH ×2 (09:44→20:42)
--- NOTE | 2020-07-17 15:57 | Hospitalist Progress Note ---
Date of Service July 17, 2020 Assessment & Plan (1) Severe sepsis: Severe sepsis Sources: UTI/Pneumonia Suspected aspiration pneumonia Urine Cx from 07/05:E.Coli Repeat urine culture negative Blood culture: No growth Received broad-spectrum antibiotics--vancomycin, levofloxacin, piperacillin / tazobactam. Lactate 1.5. Nasal MRSA screen negative Received IV fluids Completed 7 day course of IV Zosyn Resolved (2) Urinary tract infection: Urine culture 07/05/20: E coli. UTI-POA Received IV Zosyn (3) Pneumonia: Suspected aspiration pneumonia --Chest CTA:Left-sided pulmonary emboli as above. There is diffuse patchy consolidation seen throughout both lungs, with dense airspace consolidation at the left lung base. The appearance is typical for pneumonia/aspiration pneumonitis. Clinical correlation will be required and radiographic follow-up to resolution is recommended. Follow-up x-rays should include both PA and lateral views. Mildly enlarged mediastinal and left hilar nodes are nonspecific and may be on a reactive basis. --Completed IV antibiotic course --Aspiration precautions --Advance diet as tolerated --Palliative care on board --Poor oral intake (4) Hypernatremia: Serum sodium 156 at time of admission. Hypernatremia probably secondary to inadequate free water intake. Monitor sodium levels Appreciate nephrology input Sodium level 143 today Continue gentle IV fluids as poor oral intake (5) Acute kidney injury: Cr:1.6>>1.25>>0.96>>0.77 probably secondary to ATN +/- TMP/sulfa. Monitor renal function Resolved (6) Hypokalemia: Replete electrolytes as needed Monitor (7) Elevated troponin level: Troponin 1.60 on admission: Likely demand ischemia in setting of acute pulmonary embolism Unable to determine if chest pain present. EKG showed NSR with downsloping ST depression inferiorly and laterally. Echo did not show any segmental wall motion abnormalities. Can not R/O Non-STEMI. Troponin trended down. Continue ASA (8) Pulmonary embolism: Acute pulmonary embolism CTA chest as above Venous doppler:No evidence of deep venous thrombus within the bilateral lower extremities. On IV heparin transitioned to Eliquis Continue Eliquis (9) Respiratory failure: Acute hypoxic respiratory failure Sats 85% on RA on presentation Secondary to acute PE, pneumonia Saturating well on room air (10) Encephalopathy: Remains lethargic mostly CT head showed age-related atrophy and small vessel ischemic changes, no acute events. Possibly multifactorial: Toxic/metabolic encephalopathy in setting of sepsis, hypernatremia, dementia Not at baseline as per family Mental status Improved (11) Hyperglycemia: Random glucose as high as 236. No history of DM. Hgb A1c: 5.5. On Insulin Sliding Scale Not requiring any Insulin currently Monitor BGs (12) Severe protein-calorie malnutrition: BMI 16.8. Severe protein-calorie malnutrition. Nanoelectronics Engineer consulted (13) Dementia: H/O Dementia Continue Bdudy Is on Risperidone due to severe agitation at detention Titrate Risperidone down to 0.5mg BID Celexa decreased from 20 to 10 mg daily Megestrol discontinued (14) Depression: Mirtazapine recently discontinued. Reduce citalopram as above (15) Aspiration into airway: Speech eval Aspiration precautions. (16) COVID-19 ruled out: SARS-CoV-2 PCR negative on 07/09/20 (17) Do not resuscitate status: DNR/DNI (18) DVT prophylaxis: Eliquis (19) Discharge planning issues: Plan to discharge back to [facility] when arranged Admission and Anticipated Discharge Date Admission Date: July 08, 2020 Subjective Patient is seen and examined at bedside Poor oral intake Limited history No distress on exam Opens eye but didn't follow commands Review of Systems Review of Systems: Other Physical Exam Physical Exam: Physical Exam: Vitals signs as noted above General Appearance: Thin, frail Head: normocephalic, Atraumatic Eyes: normal inspection Neck: supple, Trachea midline Respiratory/Chest: Decreased breath sounds, CTA Cardiovascular: S1, S2, No murmur Abdomen/GI:Soft, Non tender, Bowel sounds present Extremities/Musculoskelatal:normal inspection, no edema Neurologic/Psych: could not perform neurological exam, follows very simple commands, Mostly Nonverbal Skin: normal color, warm Results & Data Results & Data ([facility]) Vital Signs (Past 12 Hours) Vital Signs Temp Pulse Resp BP Pulse Ox 07/17/20 07:32 36.4 C L 56 L 14 118/70 96 Laboratory Results Short CBC 07/17/20 Range/Units 06:38 WBC 7.93 (4.8-10.8) K/uL Hgb 11.0 L (12.0-16.0) g/dL Hct 33.4 L (37-47) % Plt Count 485 H (130-400) K/uL BMP 07/17/20 06:38 Sodium 143 Potassium 3.8 Chloride 112 H Carbon Dioxide 26 BUN 3 L Creatinine 0.77 Glucose 101 H Calcium 9.1 (1) Pneumonia Laterality: unspecified laterality Lung location: unspecified part of lung Pneumonia type: due to unspecified organism Qualified Code(s): J18.9 - Pneumonia, unspecified organism (2) Pulmonary embolism Acute cor pulmonale presence: without acute cor pulmonale Chronicity: acute Pulmonary embolism type: unspecified Qualified Code(s): I26.99 - Other pulmonary embolism without acute cor pulmonale (3) Respiratory failure Chronicity: acute Respiratory failure complication: unspecified whether with hypoxia or hypercapnia Qualified Code(s): J96.00 - Acute respiratory failure, unspecified whether with hypoxia or hypercapnia
[2020-07-17] MEDS: D5W AND 1/2NSS + 20MEQ KCL 20 MEQ/1,000 ML BAG IV SCH (19:32)
[2020-07-17] MEDS: risperiDONE ODT 0.5 MG SOLTAB PO SCH (20:43)
[2020-07-17] MEDS: DOCUSATE SODIUM/SENNA 50/8.6MG TAB PO SCH (20:47)
[2020-07-18] MEDS: INSULIN ASPART 100 UNITS/ML 3 ML PEN SC SCH ×4 (00:48→18:35)
[2020-07-18 08:11] LABS: BUN Creatinine Ratio 6.6 (10-20); Calcium 9.3 mg/dl (8.5-10.1); Est GFR (African American) 73.5; Est GFR (Non-African American) 63.4
[2020-07-18] MEDS: APIXABAN 5 MG TABLET PO SCH ×2 (09:01→21:07)
[2020-07-18] MEDS: CITALOPRAM 20 MG TAB PO SCH (09:02)
[2020-07-18] MEDS: VITAMIN B COMPLEX TAB PO SCH (09:02)
[2020-07-18] MEDS: MEMANTINE HCL 10 MG TAB PO SCH ×2 (09:02→21:08)
[2020-07-18] MEDS: risperiDONE ODT 0.5 MG SOLTAB PO SCH ×2 (09:02→21:05)
[2020-07-18] MEDS: LACTOBACILLUS ACIDOPHILUS (FLORANEX) TAB PO SCH (09:02)
[2020-07-18] MEDS: ASPIRIN 81 MG ECTAB PO SCH (09:02)
[2020-07-18] MEDS: MULTIVITAMIN TAB PO SCH (09:02)
[2020-07-18] MEDS: D5W AND 1/2NSS + 20MEQ KCL 20 MEQ/1,000 ML BAG IV SCH (15:05)
--- NOTE | 2020-07-18 16:00 | Hospitalist Progress Note ---
Date of Service July 18, 2020 Assessment & Plan (1) Severe sepsis: Severe sepsis Sources: UTI/Pneumonia Suspected aspiration pneumonia Urine Cx from 07/05:E.Coli Repeat urine culture negative Blood culture: No growth Received broad-spectrum antibiotics--vancomycin, levofloxacin, Zosyn Lactate 1.5. Nasal MRSA screen negative Received IV fluids Completed 7 day course of IV Zosyn Resolved Afebrile Waiting for placement (2) Urinary tract infection: Urine culture 07/05/20: E coli. UTI-POA Completed IV Zosyn course (3) Pneumonia: Suspected aspiration pneumonia --Chest CTA:Left-sided pulmonary emboli as above. There is diffuse patchy consolidation seen throughout both lungs, with dense airspace consolidation at the left lung base. The appearance is typical for pneumonia/aspiration p neumonitis. Clinical correlation will be required and radiographic follow-up to resolution is recommended. Follow-up x-rays should include both PA and lateral views. Mildly enlarged mediastinal and left hilar nodes are nonspecific and may be on a reactive basis. --Completed IV antibiotic course --Aspiration precautions --Palliative care on board --Poor oral intake (4) Hypernatremia: Serum sodium 156 at time of admission. Hypernatremia probably secondary to inadequate free water intake. Monitor sodium levels Appreciate nephrology input Sodium level 141 today Continue gentle IV fluids (5) Acute kidney injury: Cr:1.6>1.25>0.96>0.83 probably secondary to ATN +/- TMP/sulfa. Monitor renal function Resolved (6) Hypokalemia: Replete electrolytes as needed Monitor (7) Elevated troponin level: Troponin 1.60 on admission: Likely demand ischemia in setting of acute pulmonary embolism Unable to determine if chest pain present. EKG showed NSR with downsloping ST depression inferiorly and laterally. Echo did not show any segmental wall motion abnormalities. Can not R/O Non-STEMI. Troponin trended down. Continue ASA (8) Pulmonary embolism: Acute pulmonary embolism CTA chest as above Venous doppler:No evidence of deep venous thrombus within the bilateral lower extremities. On IV heparin transitioned to Eliquis Continue Eliquis (9) Respiratory failure: Acute hypoxic respiratory failure Sats 85% on RA on presentation Secondary to acute PE, pneumonia Resolved (10) Encephalopathy: Remains lethargic mostly CT head showed age-related atrophy and small vessel ischemic changes, no acute events. Possibly multifactorial: Toxic/metabolic encephalopathy in setting of sepsis, hypernatremia, dementia Mental status seemed to be back to baseline (11) Hyperglycemia: Random glucose as high as 236. No history of DM. Hgb A1c: 5.5. On Insulin Sliding Scale Not requiring any Insulin currently Monitor BGs (12) Severe protein-calorie malnutrition: BMI 16.8. Severe protein-calorie malnutrition. Keyseating Machine Set Up Operator consulted (13) Dementia: H/O Dementia Continue Buddy Is on Risperidone due to severe agitation at jail Titrate Risperidone down to 0.5mg BID Celexa decreased from 20 to 10 mg daily Megestrol discontinued (14) Depression: Mirtazapine recently discontinued. Reduce citalopram as above (15) Aspiration into airway: Speech eval Aspiration precautions. (16) COVID-19 ruled out: SARS-CoV-2 PCR negative on 07/09/20 (17) Do not resuscitate status: DNR/DNI (18) DVT prophylaxis: Eliquis (19) Discharge planning issues: Plan to discharge back to [facility] when arranged Admission and Anticipated Discharge Date Admission Date: July 08, 2020 Subjective Patient is seen and examined at bedside History is limited secondary to dementia No distress on exam Continues to have poor oral intake per RN Clinically no significant change from yesterday Review of Systems Review of Systems: All systems reviewed & are unremarkable except as noted in HPI & below Physical Exam Physical Exam: Physical Exam: Vitals signs as noted above General Appearance: Thin, frail Head: normocephalic, Atraumatic Eyes: normal inspection Neck: supple, Trachea midline Respiratory/Chest: Decreased breath sounds, CTA Cardiovascular: S1, S2, No murmur Abdomen/GI:Soft, Non tender, Bowel sounds present Extremities/Musculoskelatal:normal inspection, no edema Neurologic/Psych: could not perform neurological exam, follows very simple commands, Mostly Nonverbal Skin: normal color, warm Results & Data Results & Data ([facility]) Vital Signs (Past 12 Hours) Vital Signs Temp Pulse Resp BP Pulse Ox 07/18/20 07:35 36.4 C L 68 14 125/54 L 92 Laboratory Results [facility] 07/18/20 06:42 Sodium 141 Potassium 4.0 Chloride 110 H Carbon Dioxide 26 BUN 6 L Creatinine 0.83 Glucose 98 Calcium 9.3 (1) Pneumonia Laterality: unspecified laterality Lung location: unspecified part of lung Pneumonia type: due to unspecified organism Qualified Code(s): J18.9 - Pneumonia, unspecified organism (2) Pulmonary embolism Acute cor pulmonale presence: without acute cor pulmonale Chronicity: acute Pulmonary embolism type: unspecified Qualified Code(s): I26.99 - Other pulmonary embolism without acute cor pulmonale (3) Respiratory failure Chronicity: acute Respiratory failure complication: unspecified whether with hypoxia or hypercapnia Qualified Code(s): J96.00 - Acute respiratory failure, unspecified whether with hypoxia or hypercapnia
[2020-07-18] MEDS: DOCUSATE SODIUM/SENNA 50/8.6MG TAB PO SCH (21:10)
[2020-07-19] MEDS: INSULIN ASPART 100 UNITS/ML 3 ML PEN SC SCH ×3 (06:19→13:09)
[2020-07-19] MEDS: ASPIRIN 81 MG ECTAB PO SCH (09:17)
[2020-07-19] MEDS: VITAMIN B COMPLEX TAB PO SCH (09:17)
[2020-07-19] MEDS: risperiDONE ODT 0.5 MG SOLTAB PO SCH (09:18)
[2020-07-19] MEDS: LACTOBACILLUS ACIDOPHILUS (FLORANEX) TAB PO SCH (09:18)
[2020-07-19] MEDS: APIXABAN 5 MG TABLET PO SCH (09:18)
[2020-07-19] MEDS: MULTIVITAMIN TAB PO SCH (09:19)
[2020-07-19] MEDS: CITALOPRAM 20 MG TAB PO SCH (09:19)
[2020-07-19] MEDS: MEMANTINE HCL 10 MG TAB PO SCH (09:20)
[2020-07-19] MEDS: D5W AND 1/2NSS + 20MEQ KCL 20 MEQ/1,000 ML BAG IV SCH (10:49)
--- NOTE | 2020-07-19 11:39 | Hospitalist Progress Note ---
Date of Service July 19, 2020 Assessment & Plan (1) Severe sepsis: Severe sepsis Sources: UTI/Pneumonia Suspected aspiration pneumonia Urine Cx from 07/05:E.Coli Repeat urine culture negative Blood culture: No growth Received broad-spectrum antibiotics--vancomycin, levofloxacin, Zosyn Lactate 1.5. Nasal MRSA screen negative Received IV fluids Completed 7 day course of IV Zosyn Resolved Afebrile Plan to discharge to [facility] today and eventually be transitioned to hospice (2) Urinary tract infection: Urine culture 07/05/20: E coli. UTI-POA Completed IV Zosyn course (3) Pneumonia: Suspected aspiration pneumonia --Chest CTA:Left-sided pulmonary emboli as above. There is diffuse patchy consolidation seen throughout both lungs, with dense airspace consolidation at the left lung base. The appearance is typical for pneumonia/aspiration pneumonitis. Clinical correlation will be required and radiographic follow-up to resolution is recommended. Follow-up x-rays should include both PA and lateral views. Mildly enlarged mediastinal and left hilar nodes are nonspecific and may be on a reactive basis. --Completed IV antibiotic course --Aspiration precautions --Palliative care on board --Poor oral intake (4) Hypernatremia: Serum sodium 156 at time of admission. Hypernatremia probably secondary to inadequate free water intake. Monitor sodium levels Appreciate nephrology input Sodium level 141 today Received gentle IV fluids (5) Acute kidney injury: Cr:1.6>1.25>0.96>0.83 probably secondary to ATN +/- TMP/sulfa. Monitor renal function Resolved (6) Hypokalemia: Replete electrolytes as needed Monitor (7) Elevated troponin level: Troponin 1.60 on admission: Likely demand ischemia in setting of acute pulmonary embolism Unable to determine if chest pain present. EKG showed NSR with downsloping ST depression inferiorly and laterally. Echo did not show any segmental wall motion abnormalities. Can not R/O Non-STEMI. Troponin trended down. Continue ASA (8) Pulmonary embolism: Acute pulmonary embolism CTA chest as above Venous doppler:No evidence of deep venous thrombus within the bilateral lower extremities. On IV heparin transitioned to Eliquis Continue Eliquis (9) Respiratory failure: Acute hypoxic respiratory failure Sats 85% on RA on presentation Secondary to acute PE, pneumonia Resolved (10) Encephalopathy: Remains lethargic mostly CT head showed age-related atrophy and small vessel ischemic changes, no acute events. Possibly multifactorial: Toxic/metabolic encephalopathy in setting of sepsis, hypernatremia, dementia Mental status seemed to be back to baseline (11) Hyperglycemia: Random glucose as high as 236. No history of DM. Hgb A1c: 5.5. On Insulin Sliding Scale Not requiring any Insulin currently Monitor BGs (12) Severe protein-calorie malnutrition: BMI 16.8. Severe protein-calorie malnutrition. Agricultural Extension Officer consulted (13) Dementia: H/O Dementia Continue Buddy Is on Risperidone due to severe agitation at detention Titrate Risperidone down to 0.5mg BID Celexa decreased from 20 to 10 mg daily Megestrol discontinued (14) Depression: Mirtazapine recently discontinued. Reduce citalopram as above (15) Aspiration into airway: Speech eval Aspiration precautions. (16) COVID-19 ruled out: SARS-CoV-2 PCR negative on 07/09/20 (17) Do not resuscitate status: DNR/DNI (18) DVT prophylaxis: Eliquis (19) Discharge planning issues: Plan to discharge today Admission and Anticipated Discharge Date Admission Date: July 08, 2020 Subjective Patient is seen and examined at bedside Limited history Discussed with ponce's son over phone Planned to be transitioned to hospice upon discharge No distress on exam Poor oral intake per veterans employment representative of Systems Review of Systems: Other Physical Exam Physical Exam: Physical Exam: Vitals signs as noted above General Appearance: Thin, frail Head: normocephalic, Atraumatic Eyes: normal inspection Neck: supple, Trachea midline Respiratory/Chest: Decreased breath sounds, CTA Cardiovascular: S1, S2, No murmur Abdomen/GI:Soft, Non tender, Bowel sounds present Extremities/Musculoskelatal:normal inspection, no edema Neurologic/Psych: could not perform neurological exam, follows very simple commands, Mostly Nonverbal Skin: normal color, warm Results & Data Results & Data ([facility] [place]) Vital Signs (Past 12 Hours) Vital Signs Temp Pulse Resp BP Pulse Ox 07/19/20 07:15 36.4 C L 68 16 156/66 H 97 (1) Pneumonia Laterality: unspecified laterality Lung location: unspecified part of lung Pneumonia type: due to unspecified organism Qualified Code(s): J18.9 - Pneumonia, unspecified organism (2) Pulmonary embolism Acute cor pulmonale presence: without acute cor pulmonale Chronicity: acute Pulmonary embolism type: unspecified Qualified Code(s): I26.99 - Other pulmonary embolism without acute cor pulmonale (3) Respiratory failure Chronicity: acute Respiratory failure complication: unspecified whether with hypoxia or hypercapnia Qualified Code(s): J96.00 - Acute respiratory failure, unspecified whether with hypoxia or hypercapnia
--- NOTE | 2020-07-19 11:53 | Discharge Summary ---
Date of Service July 19, 2020 Admission HPI Per Admitting Provider CHIEF COMPLAINT: Acute respiratory failure and unresponsiveness. HISTORY OF PRESENT ILLNESS: This is an 85-year-old female with past medical history significant for mixed Alzheimer's and vascular dementia, peripheral vascular disease, chronic kidney disease stage III, major depression, currently a resident of [facility], was brought in because of respiratory distress and also she was unresponsive when she came to the ER. As per the [facility] , the clinical joint supervisor, when she came around 7:00 tonight, at 6:45 p.m., she was found to have rhonchi and gasping for air, they put on 2 liters oxygen,saturations came only up to 68%, they increased to 4 liters,increasing oxygen saturations only to 80%.Patient was also recently started on Bactrim for UTI on 07/05/2020 .engine maintenance mechanic doctor called the son whether to send the patient to hospital, the son decided to send the patient to hospital and she was brought in here and when she came in, she was unresponsive as per the ER physician, she was only saturating in 70s. She was placed on BiPAP, she was given a liter of fluids and antibiotics.She was tachycardic and her white count was 18,000. Sodium was 156, creatinine was 1.6. Lactate 1.5. Troponin was 0.05 and COVID-19 PCR was negative. After the fluids and antibiotics, the patient opened her eyes and they tapered down oxygen to OxyMask 6 liters and she is saturating 100%. She is afebrile currently and her COVID-19 PCR in the ER is negative. CT of the head is unremarkable. CTA of the chest was done which shows right upper lobe segmental PE and also left lower lobe infiltrate, possible aspiration pneumonitis. As per the [facility], the patient generally was not oriented, until 3-4 days ago, she was ambulating by herself, but since about a month, she is mostly using wheelchair. She is on soft diet.She was diagnosed with UTI few days back and the patient's on Bactrim since 07/05., LAst few days she is not eating and drinking much .Patient is DNR/DNI. Also talked to the son who is the power of mergers and acquisitions attorney, he confirms that the patient is DNR/DNI, but he is okay with antibiotics and anticoagulation for PE. He says they were not able to see his mom because of COVID and as been doing Face Time. As per him, the patient knows her name and sometimes says coherent sentences, but sometimes confused, but he could not exactly tell what she knows and what she does not know.As per son sometimes she does not eat because she does not like the food. As per [facility], there is no recent nausea, vomiting. No diarrhea, no constipation, no cough and first time her temperature was 99.1 degrees today. The patient is currently shaky she says she is doing okay. Otherwise, could not get any history from the patient.As per [facility] patinet generally does not talk much. Not even oriented to name as per [facility] Admission Exam Per Admitting Provider PHYSICAL EXAMINATION: GENERAL: The patient is old and frail, currently does not seem to be in acute distress.Shaky. VITAL SIGNS: Temperature 36.9, pulse 118, respiratory rate 19, blood pressure 124/64, oxygen 100% OxyMask 6 liters. HEENT: No pallor. Pupils equal, round, reactive to light. NECK: No carotid bruit, no neck masses seen, supple. CARDIOVASCULAR: S1, S2 heard. Tachycardia. No murmur, no gallop. RESPIRATORY SYSTEM: Normal AP diameter. No accessory muscle use. Do not appreciate any wheezing or crackles. ABDOMEN: Soft, bowel sounds present. No distention. Nontender. CENTRAL NERVOUS SYSTEM: Currently alert and awake, not oriented, mostly nonverbal, says she is doing okay, moving her upper extremities. EXTREMITIES: No edema, no erythema seen. Principal Diagnosis Sepsis Urinary tract infection Suspected aspiration pneumonia Hypernatremia Acute kidney injury Hypokalemia Acute pulmonary embolism Discharge Data Allergies Allergy/AdvReac Type Severity Reaction Status Date / Time No Known Allergies Allergy Verified 07/08/20 23:05 Consultations 07/08/20 22:25 ED Decision to Admit Stat 07/09/20 01:08 Consult Case Management - Discharge Planning Routine 07/09/20 08:00 Consult Nephrology Routine 07/13/20 16:29 Consult Palliative Care Routine Procedures Performed Chest CTA:Left-sided pulmonary emboli as above. There is diffuse patchy con solidation seen throughout both lungs, with dense airspace consolidation at the left lung base. The appearance is typical for pneumonia/aspiration pneumonitis. Clinical correlation will be required and radiographic follow-up to resolution is recommended. Follow-up x-rays should include both PA and lateral views. Mildly enlarged mediastinal and left hilar nodes are nonspecific and may be on a reactive basis. Ordered Studies 07/08/20 20:19 CT angio chest PE protocol Urgent CT head/brain wo con Urgent 07/09/20 09:00 US venous doppler LE BI Routine Hospital Course (1) Severe sepsis: Severe sepsis Sources: UTI/Pneumonia Suspected aspiration pneumonia Urine Cx from 07/05:E.Coli Repeat urine culture negative Blood culture: No growth Received broad-spectrum antibiotics--vancomycin, levofloxacin, Zosyn Lactate 1.5. Nasal MRSA screen negative Received IV fluids Completed 7 day course of IV Zosyn Resolved Afebrile Plan to discharge to [facility] today and eventually be transitioned to hospice (2) Urinary tract infection: Urine culture 07/05/20: E coli. UTI-POA Completed IV Zosyn course (3) Pneumonia: Suspected aspiration pneumonia --Chest CTA:Left-sided pulmonary emboli as above. There is diffuse patchy consolidation seen throughout both lungs, with dense airspace consolidation at the left lung base. The appearance is typical for pneumonia/aspiration pneumonitis. Clinical correlation will be required and radiographic follow-up to resolution is recommended. Follow-up x-rays should include both PA and lateral views. Mildly enlarged mediastinal and left hilar nodes are nonspecific and may be on a reactive basis. --Completed IV antibiotic course --Aspiration precautions --Palliative care on board --Poor oral intake (4) Hypernatremia: Serum sodium 156 at time of admission. Hypernatremia probably secondary to inadequate free water intake. Monitor sodium levels Appreciate nephrology input Sodium level 141 today Received gentle IV fluids (5) Acute kidney injury: Cr:1.6>1.25>0.96>0.83 probably secondary to ATN +/- TMP/sulfa. Monitor renal function Resolved (6) Hypokalemia: Replete electrolytes as needed Monitor (7) Elevated troponin level: Troponin 1.60 on admission: Likely demand ischemia in setting of acute pulmonary embolism Unable to determine if chest pain present. EKG showed NSR with downsloping ST depression inferiorly and laterally. Echo did not show any segmental wall motion abnormalities. Can not R/O Non-STEMI. Troponin trended down. Continue ASA (8) Pulmonary embolism: Acute pulmonary embolism CTA chest as above Venous doppler:No evidence of deep venous thrombus within the bilateral lower extremities. On IV heparin transitioned to Eliquis Continue Eliquis (9) Respiratory failure: Acute hypoxic respiratory failure Sats 85% on RA on presentation Secondary to acute PE, pneumonia Resolved (10) Encephalopathy: Remains lethargic mostly CT head showed age-related atrophy and small vessel ischemic changes, no acute events. Possibly multifactorial: Toxic/metabolic encephalopathy in setting of sepsis, hypernatremia, dementia Mental status seemed to be back to baseline (11) Hyperglycemia: Random glucose as high as 236. No history of DM. Hgb A1c: 5.5. On Insulin Sliding Scale Not requiring any Insulin currently Monitor BGs (12) Severe protein-calorie malnutrition: BMI 16.8. Severe protein-calorie malnutrition. Supervisor Landscape consulted (13) Dementia: H/O Dementia Continue Buddy Is on Risperidone due to severe agitation at [facility] Titrate Risperidone down to 0.5mg BID Celexa decreased from 20 to 10 mg daily Megestrol discontinued (14) Depression: Mirtazapine recently discontinued. Reduce citalopram as above (15) Aspiration into airway: Speech eval Aspiration precautions. (16) COVID-19 ruled out: SARS-CoV-2 PCR negative on 07/09/20 (17) Do not resuscitate status: DNR/DNI (18) DVT prophylaxis: Eliquis (19) Discharge planning issues: Plan to discharge today Total Time Total Time Spent Total Time Spent (In Minutes): 40 minutes Total Time Includes: Examination of the Patient, Discharge Planning, Medication Reconciliation, Communication With Other Providers and Other Discharge Plan Discharge Items Patient Disposition: Transfer [facility] Reason For Visit: ACUTE RESP FAILURE Discharge Diagnosis: Sepsis Urinary tract infection Suspected aspiration pneumonia Hypernatremia Acute kidney injury Hypokalemia Acute pulmonary embolism Activity: Per Instructions section Exercise/Sports: Gradually increase as tolerated Non-emergency contact: Primary Care Provider Call non-emergency contact if: you have any medication questions, your symptoms worsen, your pain is not controlled, your pain is worsening, your pain is un usual for you, your pain is concerning for you and you have a fever Follow-up/Referrals: Quincy Zambrano [Primary Care Provider] - Diet: Regular Diet Texture: Mechanical soft (ground) Liquid Consistency: [place] thick Diet Comment: Aspiration Precuations at all times Addtl Attending Provider Instructions: Follow-up with your primary care physician in 1 week. Apixaban (Eliquis) dosing: Continue taking 10mg twice a day for 3 more days (Until 07/22/20) Start taking 5mg Twice a day starting 07/23/20 Discuss with your physician the need for further tapering down or stopping--Risperidone medication Seek immediate medical attention if your symptoms reoccur or worsen Pending Studies at Discharge: No Stand-Alone Forms: [facility] Skilled Items Lines: None Urinary Catheter: Yes Medications and DC Order Prescriptions: New Eliquis 5 mg Tablet 5 mg PO BID Qty: 60 RF: 0 Continued multivitamin Tablet 1 tab PO DAILY RF: 0 acetaminophen 325 mg Tablet 650 mg PO Q6 PRN (Reason: Fever Or Pain) RF: 0 acetaminophen [Tylenol] 325 mg Tablet 650 mg PO BID RF: 0 polyvinyl alcohol [Artificial Tears (polyvin alc)] 1.4 % Drops 1 drp OPB BID PRN (Reason: .DRY EYES) RF: 0 sennosides-docusate sodium [Senna Plus] 8.6-50 mg Tablet 1 tab-cap PO HS RF: 0 aspirin 81 mg Tablet,Delayed Release (Dr/Ec) 81 mg PO DAILY RF: 0 magnesium hydroxide [Milk of Magnesia] 400 mg/5 mL Suspension 30 ml PO UD PRN (Reason: Abdominal Discomfort) RF: 0 bisacodyl [Dulcolax (bisacodyl)] 10 mg Suppository 10 mg IN Q6 PRN (Reason: Constipation) RF: 0 memantine 10 mg tablet 10 mg PO BID RF: 0 vitamin B complex-folic acid 400 mcg Tablet Extended Release 0 tab PO DAILY RF: 0 cholecalciferol (vitamin D3) [Vitamin D3] 50 mcg (2,000 unit) Tablet 4,000 unit PO DAILY RF: 0 Eucerin Cream 1 applic TOPICAL AMHS RF: 0 Probiotic 3 billion cell Capsule 0 mmu cells PO DAILY RF: 0 Changed risperidone 2 mg tablet 0.5 mg PO BID Qty: 0 RF: 0 citalopram [Celexa] 20 mg tablet 10 mg PO DAILY Qty: 0 RF: 0 Discontinued megestrol 400 mg/10 mL (40 mg/mL) suspension 400 mg PO DAILY RF: 0 sulfamethoxazole-trimethoprim [Bactrim DS] 800-160 mg tablet 1 tab PO BID RF: 0 Discharge Orders: Discharge Order (Routine); Ordered 07/19/20 Ordered By: Jack Del Rio Admission Data Admit Date/Time: 07/08/20 23:49 Attending Provider: Jack Del Rio Admit Provider: Kyle Bonilla Primary Care Provider: Quincy Zambrano Other Providers: [place], ; Kyle Bonilla ; Judit Bautista ; Tayler Cedeno Other Interventions: Discharge Summary Assessment (RN) Last Done: 07/19/20 13:19
[2020-07-23] MEDS ORDERED: APIXABAN 5 MG TABLET PO SCH (09:00)
== END 2020-07-19 16:01 | disposition hospice, inpatient (51) | DRG 871 ==
LOC: ED 19:59 → 2E 23:49 → SUATTDRO 23:49 → 2E 07-09 00:36 → 2N 07-13 15:20 → 3W 07-16 01:33